=== PATIENT | male | born 1955 | race Caucasian/White ===

== ENCOUNTER 2019-01-29 10:23 | Inpatient (IN) | payer SELFPAY ==
[~2019-01-29] VITALS: Ht 167.6 cm; Wt 72.6 kg
--- NOTE | 2019-01-29 11:00 | NUR ---
DR. RABAGO AT BEDSIDE FOR PT ASSESSMENT AT THIS TIME.
[2019-01-29] MEDS ORDERED: ONDANSETRON HCL INJ 2MG/ML 2ML 2 MG/ML VIAL IV STA (11:05)
[2019-01-29] MEDS ORDERED: MORPHINE SULFATE 2 MG/ML SYR 1ML IV STA (11:05)
[2019-01-29] MEDS ORDERED: SODIUM CHLORIDE 0.9% 1000ML 1,000 ML IV STA (11:05)
[2019-01-29] MEDS ORDERED: PANTOPRAZOLE 40 MG 10ML VIAL IV STA (11:05)
[2019-01-29] MEDS ORDERED: SODIUM CHLORIDE FLUSH 10 ML SYR INJ PRN (11:15)
[2019-01-29] MEDS ORDERED: ONDANSETRON HCL INJ 2MG/ML 2ML 2 MG/ML VIAL IV PRN (11:15)
[2019-01-29] MEDS ORDERED: MORPHINE SULFATE 2 MG/ML SYR 1ML IV PRN (11:15)
[2019-01-29 11:54] LABS: BASOPHILS % 0.5 % (0.0-1.0); EOSINOPHILS % 0.4 % (0.0-6.0); HEMOGLOBIN 12.7 g/dL (14.0-18.0); LYMPHOCYTES # (AUTO) 1.8 (1.0-3.2); LYMPHOCYTES % 20.6 % (18.0-39.1); MEAN CORPUSCULAR HEMOGLOBIN 36.5 pg (28-32); MEAN CORPUSCULAR HGB CONC 35.3 g/dL (31-35); MEAN CORPUSCULAR VOLUME 103.4 fL (81-99); MONOCYTES # (AUTO) 0.9 (0.2-0.8); MONOCYTES % 10.7 % (4.4-11.3); NEUTROPHILS # (AUTO) 5.8 (2.1-6.9); NEUTROPHILS % 67.4 % (38.7-80.0); PLATELET COUNT 137 x10e3/uL (140-360); RED BLOOD COUNT 3.48 x10e6/uL (4.3-5.7); RED CELL DISTRIBUTION WIDTH 14.6 % (11.7-14.4)
[2019-01-29 12:07] LABS: INR 1.35; PARTIAL THROMBOPLASTIN TIME 33.5 seconds (23.8-35.5); PROTHROMBIN TIME 17.3 seconds (11.9-14.5)
[2019-01-29 12:15] LABS: ALANINE AMINOTRANSFERASE 50 IU/L (0-55); ALBUMIN 2.2 g/dL (3.5-5.0); ALBUMIN/GLOBULIN RATIO 0.4 (0.8-2.0); ALKALINE PHOSPHATASE 101 IU/L (40-150); ANION GAP 10.9 mmol/L (8-16); BLOOD UREA NITROGEN 12 mg/dL (7-26); BUN/CREATININE RATIO 16 (6-25); CALCIUM 8.6 mg/dL (8.4-10.2); CARBON DIOXIDE 24 mmol/L (22-29); CHLORIDE 96 mmol/L (98-107); CREATININE, SERUM 0.75 mg/dL (0.72-1.25); EST GLOMERULAR FILTRATION RATE > 60 ML/MIN (60-); GLUCOSE 104 mg/dL (74-118); LIPASE 82 U/L (8-78); MAGNESIUM 2.1 MG/DL (1.3-2.1); POTASSIUM 3.9 mmol/L (3.5-5.1); SODIUM 127 mmol/L (136-145)
--- NOTE | 2019-01-29 12:15 | NUR ---
OBTAINED UA VIA CATH, AESEPTIC TECHNIQUE USED, PT SCROTUM IS EDEMATOUS AND RED; URETHRA EASILY VISIBLE. PT TOLERATED PROCEDURE WELL, NOTED TO HAVE 25 CC FOR SPECIMEN, INFORMED DR. RABAGO.
[2019-01-29] MEDS: CEFTRIAXONE SOD 1 GM/NS 50 ML 50 ML IV SCH (12:22)
[2019-01-29 12:24] LABS: ACETAMINOPHEN < 3 ug/mL (10-30); SALICYLATE < 5.0 mg/dL (0-30)
--- NOTE | 2019-01-29 12:46 | Diagnostic Imaging Report ---
EXAM: CHEST SINGLE (PORTABLE) DATE: 01/29/2019 11:05 AM INDICATION: Edema, bloated stomach COMPARISON: None FINDINGS: The trachea is midline. There is a small left pleural effusion with associated atelectasis of the left lower lobe. A trace right-sided pleural effusion is suspected. There is no evidence for large focal consolidation or pneumothorax. The cardiomediastinal silhouette is within normal limits. No acute osseous abnormalities identified. IMPRESSION: Small left pleural effusion and suspected trace right pleural effusion with associated bibasilar atelectasis. Signed by: Dr. Garrett Carlos MD on 01/29/2019 12:42 PM
[2019-01-29 12:51] LABS: CREATINE KINASE MB 1.7 ng/mL (0-5.0)
[2019-01-29 12:51] LABS: AMPHETAMINES SCREEN,URINE NEGATIVE (NEGATIVE); BENZODIAZEPINES SCREEN,URINE POSITIVE (NEGATIVE); PHENCYCLIDINE SCREEN,URINE NEGATIVE (NEGATIVE)
--- NOTE | 2019-01-29 13:50 | NUR ---
WITNESSED INFORM CONSENT AT THIS TIME, PROCEDURE WAS EXPLAINED BY DR. RABAGO IN DETAIL, PT INFORMED OF RISKS, BENEFITS, AND ALTERNATIVE TREATMENTS. PT TO BE TAKEN TO INTERVENTIONAL RADIOLOGY SOON FOR PARACENTESIS. INFORMED RADIOLOGY THAT CONSENT FORM WAS COMPLETED.
--- NOTE | 2019-01-29 13:56 | Diagnostic Imaging Report ---
CT of the abdomen and pelvis, with contrast. History: Ascites. Comparison: None available. Technique: Multidetector CT scanning of the abdomen and pelvis was performed from the level of the lung bases to the inferior pubic rami after intravenous and oral administration of contrast. Coronal and sagittal multiplanar reformations were obtained. RADIATION DOSE: Total DLP: 943.40 mGy*cm Dose modulation, iterative reconstruction, and/or weight based adjustment of the mA/kV was utilized to reduce the radiation dose to as low as reasonably achievable. FINDINGS: There is a small left-sided pleural effusion present with associated compressive atelectasis of the left lower lobe. There is mild right basilar atelectasis. The imaged portion of the heart demonstrates no significant abnormalities. Incidental note is bilateral gynecomastia. There is a large volume of simple appearing abdominopelvic ascites present. The liver is decreased in size and demonstrates a nodular contour compatible with cirrhosis. No focal hepatic abnormality is identified on this single phase examination. The portal venous system, SMV, and splenic vein are patent. A recanalized umbilical vein is present. The gallbladder is unremarkable. There is no biliary ductal dilatation. There is a small hiatal hernia present. The stomach is otherwise unremarkable. The spleen, pancreas, and bilateral adrenal glands are unremarkable. The kidneys are normal in size and concentrate contrast material properly. There is no evidence for hydronephrosis. The ureters and urinary bladder are not well-visualized secondary to presence of large volume ascites. The prostate is grossly unremarkable. The abdominal aorta is normal course and caliber. The IVC is unremarkable. Please note evaluation the bowel is limited without the use of enteric contrast material. There is centralization of loops of bowel secondary to the presence of a large volume of ascites. The visualized loops of small and large bowel demonstrate no evidence of obstruction or inflammation. There is no intraperitoneal free air. No abnormally enlarged lymph nodes are identified within the abdomen or pelvis. The osseous structures demonstrate no evidence for acute fracture or destructive process. There is diffuse body wall edema present. IMPRESSION: 1. CT findings compatible with cirrhosis and sequela of portal hypertension including large volume of abdominopelvic ascites. 2. Small left pleural effusion. Signed by: Dr. Garrett Carlos MD on 01/29/2019 1:53 PM
[2019-01-29] MEDS ORDERED: SODIUM CHLORIDE 0.9% 50ML 50 ML ONE (14:22)
[2019-01-29] MEDS ORDERED: IOPAMIDOL 370 MG/ML 200 ML INFUS..BTL INJ ONE (14:22)
[2019-01-29 14:44] LABS: CLARITY,URINE CLOUDY (CLEAR); COLOR,URINE RED (YELLOW)
[2019-01-29 14:45] LABS: LEUKOCYTE ESTERASE ,URINE NEGATIVE (NEGATIVE); NITRITE,URINE NEGATIVE (NEGATIVE); URINE UROBILINOGEN 0.2 mg/dL (0.2 - 1)
[2019-01-29 14:46] LABS: PROTEIN,URINE DIPSTICK NEGATIVE (NEGATIVE)
[2019-01-29 14:47] LABS: KETONES,URINE NEGATIVE (NEGATIVE)
[2019-01-29 14:48] LABS: BILIRUBIN,URINE MODERATE (NEGATIVE)
[2019-01-29 15:03] LABS: RBC,URINE 0-5 /HPF (0-5)
[2019-01-29 15:04] LABS: AMORPHOUS SEDIMENT,URINE MODERATE (FEW); BACTERIA,URINE MODERATE /HPF
--- NOTE | 2019-01-29 15:30 | NUR ---
BEDSIDE REPORT GIVEN TO NATANAEL AHUJA; UPDATED ON PLAN OF CARE, PROVIDED TELEMETRY BOX AND NS BAG IN ROOM 110, AWAITING ARRIVAL FROM IR AT THIS TIME; RECEIVING NURSE MADE AWARE.
--- NOTE | 2019-01-29 16:00 | Diagnostic Imaging Report ---
Procedure: Ultrasound-guided paracentesis semiautomatic taper operator: Garrett Carlos MD Pre-operative diagnosis: Ascites Post-operative diagnosis: Ascites Conscious Sedation: None. The patient's heart rate and pulse oximetry were continuously monitored by the IR nurse. Additional Medications: Lidocaine 1% for local anesthesia Estimated blood loss: Less than 1 cc. Specimen: 14,100 cc of cloudy yellow fluid Implants: None TECHNIQUE/FINDINGS: Informed consent was obtained from the patient and documented in the medical record. The patient was placed in the supine position. Initial ultrasound demonstrated ascites. The right lower abdomen was prepped and draped in standard sterile fashion. 1% lidocaine was infiltrated into the skin and subcutaneous tissues for local anesthesia. Then under continuous sonographic guidance, a 5 Fr catheter was advanced into the peritoneal space. The catheter was connected to vacuum bottle with subsequent evacuation of 14,100 cc of serous fluid. The catheter was removed and sterile dressing was applied. Sample was sent to the lab. The patient tolerated the procedure well. IMPRESSION: Successful ultrasound-guided paracentesis. Signed by: Dr. Garrett Carlos MD on 01/29/2019 3:57 PM
--- NOTE | 2019-01-29 16:01 | NUR ---
ARRIVED VIA STRETCHER FROM IR POST PARACENTESIS WITH "14.1L OFF", PT NOT SPEAKING AT THIS TIME, BUT SHAKING HEAD AND USING HANDS TO ANSWER WHEN ASKED QUESTIONS, 2LNC, R ABD DRESSING INTACT, SCANT DRAINAGE NOTED, PT ASSISTED TO USE URINAL, DENIES PAIN AT THIS TIME, ORIENTED TO ROOM AND CALL LIGHT SYSTEM
[2019-01-29 16:15] VITALS: BP 129/67
[2019-01-29] MEDS ORDERED: MULTIVITAMINS- 12 INJECTION 10 ML, FOLIC ACID MDV 5 MG, THIAMINE HCL INJ 100 MG in SODI... IV SCH (16:15)
[2019-01-29] MEDS ORDERED: ALBUMIN 25% 25GM 100ML 0.25 GM/ML BTL IV SCH (16:15)
[2019-01-29] MEDS ORDERED: ALBUMIN 25% 25GM 100ML 100 ML IV SCH (16:30)
[2019-01-29] MEDS: MULTIVITAMINS- 12 INJECTION 10 ML, FOLIC ACID MDV 5 MG, THIAMINE HCL INJ 100 MG in SODI... IV SCH (17:00)
[2019-01-29 17:07] LABS: BODY FLUID APPEARANCE SL.CLOUDY; BODY FLUID COLOR YELLOW; BODY FLUID TYPE PERITONEAL
[2019-01-29 17:21] LABS: RBC,BODY FLUID 50 cells/uL; WBC,BODY FLUID 37 cells/uL
[2019-01-29] MEDS ORDERED: LORAZEPAM 0.5 MG TAB PO PRN (17:30)
--- NOTE | 2019-01-29 17:46 | NUR ---
MD STEVENS INTO SEE PT, DISCUSSED POC
--- NOTE | 2019-01-29 17:49 | NUR ---
PT ANSWERING APPROPRIATELY AT THIS TIME, TOLERATING CLEAR LIQUIDS AT THIS TIME, CALL LIGHT WITHIN REACH
--- NOTE | 2019-01-29 18:20 | NUR ---
SPOKE WITH MD STEVENS, MADE AWARE OF ELEVATED HEART RATE 126-136BPM, ORDERS NOTED AT THIS TIME
[2019-01-29 18:32] VITALS: BP 129/67
[2019-01-29] MEDS: METOPROLOL TARTRATE 25 MG TAB PO SCH (18:49)
[2019-01-29 19:25] LABS: BASOPHILS,BODY FLUID 1 %; LYMPHOCYTES,BODY FLUID 37 %; MONO/MACROPHG,BODY FLUID 5 %; NEUTROPHILS,BODY FLUID 6 %; OTHER CELLS,BODY FLUID 51 %
--- NOTE | 2019-01-29 19:28 | NUR ---
Report received at this time. Pt is sitting up in bed at this time in no apparent distress. Call light is in reach of pt. Will continue to monitor.
--- NOTE | 2019-01-29 19:43 | NUR ---
Dressing to right lower abdomen saturated and leaking. New gauze and tecaderm reapplied. Gown changed. Pt educated to not get up without assistance. Pt informed to use call light for help. Call light is in reach at this time. Report given to Nightshift nurse, Jena SANTOYO at this time.
--- NOTE | 2019-01-29 19:52 | NUR ---
RECEIVED PT LAYING SEMI FOWLERS IN BED, AAOX3, RR EVEN AND NON-LABORED, ON ROOM AIR. NO S/SX OF DISTRESS NOTED. DRESSING TO ANTERIOR ABD NOTED TO BE CDI. LEFT PT LAYING SEMI FOWLERS IN BED, BED IN LOW LOCKED POSITION, SIDE RAILS UPX2, CALL LIGHT AND PHONE WITHIN REACH.
[2019-01-29 20:00] VITALS: BP 123/70
[2019-01-29 20:47] VITALS: BP 123/70
--- NOTE | 2019-01-29 23:16 | History and Physical ---
CHIEF COMPLAINT: Abdominal distention. HISTORY OF PRESENT ILLNESS: This is a 63-year-old male with no past medical history, does not see a primary care physician for significant number of years, reports taking Xanax from his , not sure how he gets those medications, comes into the emergency room with complaints of abdominal distention ongoing for the last several weeks. The patient also reports scrotal swelling as well as lower extremity edema as well. He reports that these symptoms have progressively gotten worse over the last several weeks. This patient is a chronic alcoholic, drinks about 10 beers a day and he reports his last drink was Sunday, this last weekend on January 26. He denies any chest pain, palpitation, nausea, or vomiting. The patient underwent paracentesis, had significant amount of drainage already from Interventional Radiology. Albumin has been written as well as IV antibiotics. The patient was seen and evaluated at bedside on the medical floor. Currently, he is doing well with no other complaints. I talked to him and got his history with his present. Nursing staff present during the evaluation. REVIEW OF SYSTEMS: Pertinent positives: Abdominal distention, lower extremity edema, scrotal swelling. Pertinent negatives: Denies any chest pain, palpitation, nausea, vomiting, diarrhea, dysuria, hematuria, frequency, urgency, lightheadedness, dizziness, abdominal pain, headache, shortness of breath, cough, congestion, fever, or any other complaints. The rest of 14-point review of systems have been reviewed with the patient and are negative. ALLERGIES: NO KNOWN DRUG ALLERGIES. HOME MEDICATIONS: None. PAST MEDICAL HISTORY: He reports none despite he takes Xanax for probably anxiety and he receives that from his . He is a chronic alcoholic. PAST SURGICAL HISTORY: Reports none. FAMILY HISTORY: Hypertension and diabetes. SOCIAL HISTORY: No drugs. He is a chronic alcoholic, drinks about 8 to 10 beers per day. Denies any drugs. He is . PHYSICAL EXAMINATION: VITAL SIGNS: Temperature is 96.9, pulse is 122, his respiratory rate is 18, his blood pressure 129/67, his pulse ox is 96% on room air. GENERAL: Not in acute distress. Alert and oriented x3. He is cooperative on exam. He looks very cachectic on examination. HEENT: Head; normocephalic and atraumatic. Eyes; pupils are equal, round and reactive to light bilaterally. Extraocular movements are intact bilaterally. Throat; no evidence of erythema or exudates in the posterior pharynx. Has poor dentition. NECK: Supple. Good range of motion. PULMONARY: Clear to auscultation bilaterally. No wheezing, no rales, no rhonchi. No crackles appreciated. CARDIOVASCULAR: Positive S1 and S2. No murmurs, rubs, or gallops appreciated. ABDOMEN: Soft, nondistended, and nontender to palpation. Bowel sounds present. MUSCULOSKELETAL: Strength is 5/5 throughout. No evidence of any muscle deficits on examination. No weakness appreciated. NEUROLOGICAL: Cranial nerves 2 through 12 are grossly intact. No evidence of any neurological deficits on exam. SKIN: Intact. Warm to touch. Good cap refill. PSYCHIATRIC: Normal affect and mood. EXTREMITIES: No edema. Good range of motion throughout. LABORATORY FINDINGS: Show white count 8.5, hemoglobin 12.7, hematocrit 36, platelets of 137. Coagulation; PT 17, INR 1.35, PTT 33. Chemistry sodium is 127, his potassium is 3.9, chloride 96, bicarbonate 24, anion gap of 10. BUN is 12, creatinine is 0.75, glucose is 104, calcium is 8.6, magnesium 2.1, total bilirubin is 3.5. AST is 87, ALT 50, alkaline phosphatase 101. Ammonia level was 48. His troponins are negative. BNP 94, albumin is 2.2. Lipase is 82. Body fluid collection has been pending. Urine drug screen shows negative for alcohol. Negative acetaminophen. Negative salicylate. Positive for benzodiazepine. Urinalysis shows just 2+ blood, cloudy urine, kind of redness in color. MICROBIOLOGY: Body fluid, ascites; Gram stain is pending. Urine culture pending. IMAGING STUDIES: Ultrasound-guided paracentesis removed 14 L described as serous fluid removed. Chest x-ray shows small left pleural effusions and suspected trace right pleural effusion associated with bibasilar atelectasis. CT abdomen and pelvis shows CT compatible with cirrhosis with sequela of portal hypertension including large volume abdominal pelvic ascites. Small left pleural effusion. IMPRESSION: 1. Alcoholic liver cirrhosis with ascites. 2. Chronic alcohol abuse. 3. Moderate protein-calorie malnutrition. 4. Ascites with portal hypertension. 5. Positive urine drug screen with benzodiazepine. 6. Hyponatremia. 7. Hypoalbuminemia. PLAN: At this time, paracentesis was performed before I was able to evaluate the patient. The patient was sent from the ER to IR and approximately 14 L was removed. I am concerned for possible hepatorenal syndrome in which I will go ahead and order albumin 25 g IV q.6 hours x6 doses and monitor him very closely. His renal function is okay right now, but we will need to monitor closely. I will hold off on all diuretics at the current moment due to removing 14 L of ascites fluid just here earlier to avoid any hypotension and worsening renal state. I will go ahead and trend troponins for now. I consulted GI to come speak with the family about his underlying liver cirrhosis. He just quit drinking or he had his last drink back on January 26, which does not qualify for any type of liver transplantation or evaluation. We will continue with same plan of care. He does not have any home medications to reconcile. I will go ahead and put him on SCDs for DVT prophylaxis. He is on a banana bag and thiamine as well. Pain control as needed. He is also on IV antibiotics. Monitor ascites, fluid cultures. Continue same plan of care and monitor very closely. MD DONNELL Adams/MODL /[id number]
[2019-01-30] VITALS (8 sets, daily range): BP systolic 94–113; BP diastolic 57–70
[2019-01-30] MEDS: ALBUMIN 25% 25GM 100ML 100 ML IV SCH ×5 (00:45→23:59)
[2019-01-30] MEDS: MULTIVITAMINS- 12 INJECTION 10 ML, FOLIC ACID MDV 5 MG, THIAMINE HCL INJ 100 MG in SODI... IV SCH ×2 (02:53→13:35)
[2019-01-30 06:47] LABS: BASOPHILS % 0.3 % (0.0-1.0); EOSINOPHILS % 0.1 % (0.0-6.0); HEMATOCRIT 35.3 % (38.2-49.6); HEMOGLOBIN 12.6 g/dL (14.0-18.0); LYMPHOCYTES # (AUTO) 1.9 (1.0-3.2); LYMPHOCYTES % 15.8 % (18.0-39.1); MEAN CORPUSCULAR HEMOGLOBIN 37.2 pg (28-32); MEAN CORPUSCULAR HGB CONC 35.7 g/dL (31-35); MEAN CORPUSCULAR VOLUME 104.1 fL (81-99); MONOCYTES % 8.3 % (4.4-11.3); NEUTROPHILS # (AUTO) 8.8 (2.1-6.9); NEUTROPHILS % 75.2 % (38.7-80.0); PLATELET COUNT 127 x10e3/uL (140-360); RED BLOOD COUNT 3.39 x10e6/uL (4.3-5.7); RED CELL DISTRIBUTION WIDTH 14.5 % (11.7-14.4)
[2019-01-30 07:05] LABS: ALANINE AMINOTRANSFERASE 28 IU/L (0-55); ALBUMIN/GLOBULIN RATIO 0.5 (0.8-2.0); ALKALINE PHOSPHATASE 58 IU/L (40-150); BLOOD UREA NITROGEN 11 mg/dL (7-26); BUN/CREATININE RATIO 17 (6-25); CALCIUM 7.8 mg/dL (8.4-10.2); CARBON DIOXIDE 21 mmol/L (22-29); CHLORIDE 105 mmol/L (98-107); CREATININE, SERUM 0.66 mg/dL (0.72-1.25); EST GLOMERULAR FILTRATION RATE > 60 ML/MIN (60-); GLUCOSE 107 mg/dL (74-118); LIPASE 34 U/L (8-78); SODIUM 132 mmol/L (136-145)
[2019-01-30] MEDS: METOPROLOL TARTRATE 25 MG TAB PO SCH ×2 (09:00→20:40)
[2019-01-30] MEDS ORDERED: ONDANSETRON HCL 4 MG ORAL DISINTEGRATING TAB PO PRN (09:30)
[2019-01-30] MEDS: PANTOPRAZOLE 40 MG 10ML VIAL IV SCH (10:00)
[2019-01-30] MEDS: THIAMINE HCL INJ 100 MG/ML 2ML VIAL IV SCH (10:00)
[2019-01-30] MEDS ORDERED: SODIUM CHLORIDE 0.9% 250ML 250 ML ONE (10:49)
[2019-01-30] MEDS: CEFTRIAXONE SOD 1 GM/NS 50 ML 50 ML IV SCH (11:14)
[2019-01-30] MEDS ORDERED: MIDODRINE 2.5 MG TAB PO SCH (16:00)
[2019-01-30] MEDS ORDERED: VANCOMYCIN 1GM/NS 250 ML 250 ML IV SCH (16:00)
[2019-01-30] MEDS: CEFEPIME 1GM/NS 0.9% 50 ML 50 ML IV SCH (16:35)
[2019-01-30] MEDS: MIDODRINE HCL 5 MG TABLET PO SCH (16:36)
--- NOTE | 2019-01-30 17:00 | NUR ---
Nutrition Intervention Note RD Recommendation(s) for Physician: The patient meets criteria for MODERATE protein-calorie malnutrition. -Rec advancing to low sodium diet as medically appropriate -Rec Ensure Clear to increase protein-calorie intake (lactose intolerance) -Continue banana bag with thiamine and folic acid due to alcoholism Plan of Care: RD following, monitoring for tolerance and adequacy, ONS rec Nutrition reason for involvement: Nutrition Risk Trigger MST RD Assessment 01/30 63yo M, who was admitted for abdominal distention ongoing for several weeks. Pt underwent paracentesis yesterday with 14L fluids removed. Visited pt in the room. Pt was complaining of gas and bloating all the time. Pt reported having appetite but cant eat much due to abdominal distention. Unable to determine # of weight loss due to ascites. Reported UBW ~160lbs. Pt denied any PMHx. However, pt was a chronic alcoholic with last alcohol intake on 01/26/2019. Pt denied any chewing or swallowing difficulty. LBM 01/29. Educated pt on low sodium diet and importance of alcohol cessation; was on bedside. Pt has moderate muscle and fat loss upon NFPA. Will continue to monitor and follow. Principal Problems/Diagnoses: 1. Alcoholic liver cirrhosis with ascites. 2. Chronic alcohol abuse. 3. Moderate protein-calorie malnutrition. 4. Ascites with portal hypertension. 5. Positive urine drug screen with benzodiazepine. PMH: chronic alcoholic GI: abdomen ascitic, soft, large, tender, flatus present Skin: intact Labs: (01/30) Na 132 L, creatinine 0.66 L, Ca 7.8 L Meds: cefepime, MVi w/ folic acid and thiamine, albumin, protonix Ht: 66in Wt: 160lb BMI: 25.8kg/m2 IBW: 142lb +/- 10% Malnutrition Evaluation (01/30/2019) The patient meets criteria for MODERATE protein-calorie malnutrition. Energy intake: <75% of estimated energy requirements for >3 months Weight loss: Unable to determine due to ascites Fat loss: Moderate clavicle protrusion Muscle loss: Moderate slight temporal depression Supporting Evidence: Fluid accumulation: Ascites Functional Status: no changes Nutrition Prescription (Diet Order): Estimated Nutritional Needs: Calories: 1440 1800kcal(20-25kcal/kg/d) Weight used: CBW Protein: 72 108g (1-1.5g/kg/d) Weight used: CBW Diet Adequacy: Not meeting calorie needs, Not meeting protein needs Diet Education Needs Assessment: Diet education indicated and patient agreeable. Learner(s): pt and Time spent: 15minutes Barriers: No barriers identified. Cultural/Language Modifications: No cultural/language modifications noted. Pt and speak Czech. Readiness: Acceptance Method: Handout, explanation Topics: Cirrhosis nutrition therapy Understanding/Compliance: Expect fair understanding/compliance from pt. Will benefit from reinforcement. All questions have been answered. Nutrition Care Level: mod Nutrition Diagnosis: Moderate malnutrition related to cirrhosis with ascites as evidenced by decrease PO intake and moderate muscle/ fat loss. Goal: Patient will meet 75-100% of estimated needs by follow up Progress: N/A Interventions: Modified diet, Commercial beverage, Multivitamin/mineral supplement therapy Monitoring/Evaluation: Total energy intake, Total protein intake, Modified diet, Liquid supplement, Weight change Signed: Yesenia Butt MS, RD, LD
--- NOTE | 2019-01-30 18:28 | Progress Note ---
DATE: 01/30/2019 Medicine Progress Note. SUBJECTIVE: The patient reports doing much better today with no other issues. His blood pressure is relatively low, likely due to all the volume removed from yesterday's paracentesis. He is alert, awake, talking, eating with no complaints. Discussed plan of care with patient and at bedside. PHYSICAL EXAMINATION: VITAL SIGNS: Temperature 96.8, pulse 88, respiratory rate 19, blood pressure 104/65, pulse ox 99% on room air. GENERAL: Not in acute distress. Alert and oriented x3. He is cooperative on exam. HEENT: Head; normocephalic and atraumatic. Eyes; pupils are equal, round and reactive to light bilaterally. Extraocular movements are intact bilaterally. Throat; no evidence of erythema or exudates in the posterior pharynx. Has poor dentition. NECK: Supple. Good range of motion. PULMONARY: Clear to auscultation bilaterally. No wheezing, no rales, no rhonchi. No crackles appreciated. CARDIOVASCULAR: Positive S1 and S2. No murmurs appreciated. ABDOMEN: Soft, nondistended, and nontender to palpation. Bowel sounds present. MUSCULOSKELETAL: Strength is 5/5 throughout. No evidence of any muscle deficits on examination. NEUROLOGICAL: No evidence of any neurological deficits on exam. SKIN: Intact. Warm to touch. Good cap refill. PSYCHIATRIC: Normal affect and mood. EXTREMITIES: He has 3+ pedal edema all the way up to the thighs. LABORATORY DATA: Show white count is 11.7, hemoglobin 12.6, hematocrit is 35.3, platelets of 127. Coagulation noted. Chemistry, sodium 132, potassium 4, chloride 105, bicarb 21, anion gap is 10, BUN is 11, creatinine is 0.66, glucose is 107, calcium is 7.8. LFTs shows total bilirubin was 3.6, AST 45, ALT 28, alkaline phosphatase 58. Troponins were negative. Albumin was 2. Lipase was 34. Ascites fluid cultures, no growth to date. No organisms seen. Urine culture was found to be negative today. IMAGING STUDIES: None. IMPRESSION: 1. Alcoholic liver cirrhosis with underlying ascites. 2. Chronic alcohol abuse. 3. Moderate protein calorie malnutrition. 4. Ascites with portal hypertension. 5. Positive benzodiazepines in UDS. 6. Hyponatremia. 7. Hypoalbuminemia. 8. Severe anasarca with scrotal swelling. 9. Hypotension. PLAN: At this time, he had received the paracentesis yesterday, 14L removed. Ascites fluid shows no evidence of any growth at this time, from a wound culture standpoint. Awaiting for GI to come and evaluate the patient. His renal function is stable. His electrolytes are stable as well. He is slightly more hypotensive today, which I will go ahead and start him on oral midodrine. Awaiting for final GI recommendations for further management and care. Most of this workup can be performed as an outpatient as well, which I discussed with the family at bedside. We will continue with the banana bag and continue with thiamine. He is on SCDs for DVT prophylaxis. We will continue to monitor very closely. MD DONNELL Adams/MODL /[id number]
--- NOTE | 2019-01-30 19:12 | NUR ---
WALKING ROUNDS PERFORMED, RECEIVED PT LAYING SEMI FOWLERS IN BED, AAOX3, RR EVEN AND NON-LABORED, ON ROOM AIR. NO S/SX OF DISTRESS NOTED. LEFT PT LAYING SEMI FOWLERS IN BED, BED IN LOW LOCKED POSITION, SIDE RAILS UPX2, CALL LIGHT AND PHONE WITHIN REACH.
--- NOTE | 2019-01-30 20:25 | NUR ---
IV TO (L) AC LEAKING, IV DISCONTINUED, CATHETER TIP INTACT, PRESSURE AND DRESSING APPLIED. NEW IV STARTED TO (L) UPPER ARM 20G. FLUSHES WITHOUT DIFFICULTY AND BLOOD RETURN NOTED.
[2019-01-30] MEDS: VANCOMYCIN 1GM/NS 250 ML 250 ML IV SCH (20:40)
[2019-01-31] VITALS: BP 109/66
[2019-01-31] MEDS: MULTIVITAMINS- 12 INJECTION 10 ML, FOLIC ACID MDV 5 MG, THIAMINE HCL INJ 100 MG in SODI... IV SCH (02:00)
[2019-01-31 04:00] VITALS: BP 109/65
--- NOTE | 2019-01-31 04:14 | NUR ---
LEFT UPPER ARM 20G INFILTRATED. IV DC'D, CATHETER TIP INTACT. UPON IV REMOVAL SKIN TEAR NOTED TO LEFT UPPER ARM 2 1/2 X 1 CM. DRSG APPLIED TO SITE. X1 ATTEMPT TO LEFT HAND SUCCESSFUL. PT TOLERATED WELL. PRIMARY NURSE NOTIFIED.
[2019-01-31] MEDS: CEFEPIME 1GM/NS 0.9% 50 ML 50 ML IV SCH (05:10)
[2019-01-31] MEDS: ALBUMIN 25% 25GM 100ML 100 ML IV SCH (06:21)
[2019-01-31 06:27] LABS: BASOPHILS % 0.1 % (0.0-1.0); EOSINOPHILS % 0.4 % (0.0-6.0); HEMATOCRIT 31.9 % (38.2-49.6); HEMOGLOBIN 11.1 g/dL (14.0-18.0); LYMPHOCYTES # (AUTO) 1.8 (1.0-3.2); LYMPHOCYTES % 23.9 % (18.0-39.1); MEAN CORPUSCULAR HEMOGLOBIN 36.8 pg (28-32); MEAN CORPUSCULAR HGB CONC 34.8 g/dL (31-35); MEAN CORPUSCULAR VOLUME 105.6 fL (81-99); MONOCYTES # (AUTO) 0.8 (0.2-0.8); MONOCYTES % 10.3 % (4.4-11.3); NEUTROPHILS # (AUTO) 4.9 (2.1-6.9); NEUTROPHILS % 64.9 % (38.7-80.0); PLATELET COUNT 99 x10e3/uL (140-360); RED BLOOD COUNT 3.02 x10e6/uL (4.3-5.7); RED CELL DISTRIBUTION WIDTH 14.6 % (11.7-14.4)
[2019-01-31 06:48] LABS: ANION GAP 8.6 mmol/L (8-16); BLOOD UREA NITROGEN 8 mg/dL (7-26); BUN/CREATININE RATIO 13 (6-25); CALCIUM 8.1 mg/dL (8.4-10.2); CARBON DIOXIDE 21 mmol/L (22-29); CHLORIDE 108 mmol/L (98-107); CREATININE, SERUM 0.61 mg/dL (0.72-1.25); EST GLOMERULAR FILTRATION RATE > 60 ML/MIN (60-); GLUCOSE 95 mg/dL (74-118); POTASSIUM 3.6 mmol/L (3.5-5.1); SODIUM 134 mmol/L (136-145)
--- NOTE | 2019-01-31 07:20 | NUR ---
Received patient sitting on the side of the bed. Respiration even and unlabored. Call light in reach.
[2019-01-31 08:26] VITALS: BP 127/79
[2019-01-31 08:40] VITALS: BP 127/79
[2019-01-31] MEDS: MIDODRINE HCL 5 MG TABLET PO SCH ×2 (08:58→12:31)
[2019-01-31] MEDS: THIAMINE HCL INJ 100 MG/ML 2ML VIAL IV SCH (08:58)
[2019-01-31] MEDS: PANTOPRAZOLE 40 MG 10ML VIAL IV SCH (08:58)
[2019-01-31] MEDS: VANCOMYCIN 1GM/NS 250 ML 250 ML IV SCH (08:58)
[2019-01-31] MEDS: METOPROLOL TARTRATE 25 MG TAB PO SCH (08:58)
[2019-01-31 12:14] VITALS: BP 131/83
[2019-01-31] MEDS ORDERED: FUROSEMIDE INJ 10 MG/ML 4 ML VIAL IV ONE (14:45)
--- NOTE | 2019-01-31 14:56 | NUR ---
GAVE PACKET OF INFORMATION WITH [facility] [employer] FOR ASSISTANCE WITH LOW TO NO INCOME TO PATIENT. RESOURCES THAT PATIENT MAY BE ABLE TO FOLLOW UP UPON DISCHARGE. PT EDUCATED ON EACH RESOURCE AND UNDERSTANDING HOW TO FOLLOW UP TO SEE IF QUALIFIED FOR EACH RESOURCE.
[2019-01-31] MEDS ORDERED: LASIX40 MG PO (15:06)
[2019-01-31] MEDS ORDERED: KEFLEX500 MG PO (15:07)
--- NOTE | 2019-01-31 15:20 | NUR ---
Patient is to be discharge home. PIV to left hand discontinued, catheter tip intact. no bleeding noted.
--- NOTE | 2019-01-31 15:28 | NUR ---
Patient is transported via wheelchair to private vehicle. respiration even and unlabored without SOB.
--- NOTE | 2019-02-01 14:42 | Discharge Summary ---
FINAL DISCHARGE DIAGNOSES: 1. Alcoholic liver cirrhosis with underlying ascites, status post paracentesis. 2. Chronic alcohol abuse. 3. Moderate protein-calorie malnutrition. 4. Ascites with portal hypertension. 5. Positive benzodiazepines on urine drug screen. 6. Mild hyponatremia, resolved. 7. Hypoalbuminemia. 8. Severe anasarca with scrotal swelling, improved. 9. Hypotension, improved. CONSULTANTS: GI. PHYSICAL EXAMINATION: VITAL SIGNS: Temperature is 97.5, pulse 90, respiratory rate is 18, blood pressure 131/83, and pulse ox 98% on room air. LAB FINDINGS: Show white count 7.6, hemoglobin 11, hematocrit 32, and platelets of 99. His coags, PT 17, INR 1.3, PTT 33. Chemistry; sodium 134, potassium 3.6, chloride 108, bicarb 21, anion gap of 8.6, BUN is 8, and creatinine is 0.61, glucose is 95, calcium is 8.1. Albumin is 2. Lipase is 34. Urinalysis was negative. Fluid shows neutrophils of 6. Serologies, hepatitis panel shows hepatitis C antibody was positive and elevated, likely has underlying hepatitis C. MICROBIOLOGY: Gram stain ascites fluid shows no growth. Urine culture was also found to be no growth. IMAGING STUDIES: Paracentesis performed shows removed 14 L of yellowish material on 01/29/2019. Chest x-ray shows small left trace pleural effusion with associated bibasilar atelectasis. CT abdomen and pelvis shows a compatible with cirrhosis and sequela of portal hypertension including large volume of abdominal pelvic ascites. Small left pleural effusion. HOSPITAL COURSE: This is a 63-year-old male, who came into the emergency room department with complaints of increased abdominal girth, found to have significant ascites on CT imaging findings. The patient is a chronic alcoholic until this day, continues to drink on a daily basis. The patient does not follow up with the primary care physician nor does he follow up with a GI specialist. He has not seen a PCP in years. He denies any chest pain or any palpitations. While here, GI was consulted. The patient underwent paracentesis ultrasound-guided with 14.1 L removed on 01/29/2019. Hepatitis panel shows positive hepatitis C antibody, likely to have underlying hepatitis C. It seems like his alcoholic cirrhosis is likely due to hep C as well as alcoholic abuse. GI consulted and was advised to follow up the patient as an outpatient in his office as well with referral to [facility] for liver transplant evaluation. Otherwise, no further workup needed by GI at this time. While here, the patient did receive diuretics with much improvement. He will be discharged on oral diuretics as well, as well as oral antibiotics. All cultures were found to be negative upon discharge. On discharge, the patient was back to baseline within with no other complaints. He was able to be discharged to home. On the day of discharge, vital signs were stable, labs reviewed and stable. The patient seen and evaluated, examined thoroughly on the day of discharge. No other complaints. The patient verbalized understanding and agrees to plan of care to follow up as an outpatient with the PCP in 1 week and GI specialist in 1-2 weeks' time. The patient was advised about alcohol cessation as well as smoking concessions. He verbalized understanding, agrees to plan of care. MEDICATIONS: See med reconciliation form. DISPOSITION: Home. CONDITION: Stable. DIET: Heart healthy. In the event of any worsening symptoms, the patient advised to come back to the emergency room department for further evaluation. Discharge summary took greater than 35 minutes. MD DONNELL Adams/LIANE /[id number]
== END 2019-01-31 15:26 | disposition home or self-care (01) | DRG 432 ==
LOC: ER 10:23 → ERHOLD 11:11 → MED/SURG 15:30
PROVIDERS: ADMIT Internal Medicine; ATTEND Internal Medicine
PROC: 0W9G3ZX Drainage of Peritoneal Cavity, Percutaneous Approach, Diagnostic (ICD-10-PCS; principal; 2019-01-29)
DX: K70.31 Alcoholic cirrhosis of liver with ascites (principal); K76.7 Hepatorenal syndrome; E87.1 Hypo-osmolality and hyponatremia; E44.0 Moderate protein-calorie malnutrition; K76.6 Portal hypertension; F41.9 Anxiety disorder, unspecified; Z82.49 Family history of ischemic heart disease and other diseases of the circulatory system; D69.6 Thrombocytopenia, unspecified; Z83.3 Family history of diabetes mellitus; F10.20 Alcohol dependence, uncomplicated; F13.10 Sedative, hypnotic or anxiolytic abuse, uncomplicated; E88.09 Other disorders of plasma-protein metabolism, not elsewhere classified; I95.9 Hypotension, unspecified; K21.9 Gastro-esophageal reflux disease without esophagitis; B19.20 Unspecified viral hepatitis C without hepatic coma; Z68.25 Body mass index [BMI] 25.0-25.9, adult
CPT/HCPCS: 36415; 49083; 71045; 74177; 74470; 80048; 80053; 80307; 80320; 80329; 81001; 82140; 82550; 82553; 83690; 83735; 83880; 84484; 85025; 85610; 85730; 86850; 86900; 87070; 87086; 87205; 88112; 89051; 93005; 99285; C1729; J0692; J0696; J1940; J2270; J2405; J3370; J3411; J7030; J7050; P9047; Q9967

== ENCOUNTER → 2019-02-13 | Outpatient (CLI) | payer SELFPAY ==
[~2019-02-13] MED LIST: KEFLEX500 MG PO; LASIX40 MG PO
--- NOTE | 2019-02-13 13:54 | Diagnostic Imaging Report ---
Procedure: Ultrasound-guided paracentesis mailing machine operator: Ric Henry M.D. Pre-operative diagnosis: Ascites Post-operative diagnosis: Ascites Conscious Sedation: None. The patient's heart rate and pulse oximetry were continuously monitored by the IR nurse. Additional Medications: Lidocaine 1% for local anesthesia Estimated blood loss: Less than 1 cc. Specimen: 13,500 cc of yellow fluid Implants: None TECHNIQUE/FINDINGS: Informed consent was obtained from the patient and documented in the medical record. The patient was placed in the supine position. Initial ultrasound demonstrated ascites. The right upper abdomen was prepped and draped in standard sterile fashion. 1% lidocaine was infiltrated into the skin and subcutaneous tissues for local anesthesia. Then under continuous sonographic guidance, a 5 Fr catheter was advanced into the peritoneal space. The catheter was connected to vacuum bottle with subsequent evacuation of 13,500 cc of serous fluid. The catheter was removed and sterile dressing was applied. Sample was sent to the lab. The patient tolerated the procedure well. IMPRESSION: Successful ultrasound-guided paracentesis. Signed by: Ric Henry on 02/13/2019 1:51 PM
[2019-02-13 18:36] LABS: BODY FLUID APPEARANCE SL.CLOUDY; BODY FLUID COLOR YELLOW; BODY FLUID TYPE PERITONEAL; RBC,BODY FLUID 32 cells/uL; WBC,BODY FLUID 45 cells/uL
[2019-02-13 18:43] LABS: LYMPHOCYTES,BODY FLUID 54 %; MONO/MACROPHG,BODY FLUID 18 %; NEUTROPHILS,BODY FLUID 11 %; OTHER CELLS,BODY FLUID 17 %
== END ==
LOC: US 10:55
PROVIDERS: ATTEND Internal Medicine Gastroenterology
DX: R18.8 Other ascites (principal)
CPT/HCPCS: 36415; 49083; 82040; 82150; 82945; 83615; 83690; 83986; 84157; 84478; 87070; 87116; 87205; 87206; 88112; 89051; C1729

== ENCOUNTER → 2019-03-31 | Outpatient (CLI) | payer MEDICARE ==
[~2019-03-31] MED LIST changes: +ALBUMIN 25% 12.5GM 50ML 200 ML IV ONE
--- NOTE | 2019-03-31 10:37 | Diagnostic Imaging Report ---
PROCEDURE: Ultrasound-guided diagnostic and therapeutic paracentesis Procedural Personnel Attending physician(s): Al Reyes MD Pre-procedure diagnosis: Ascites Post-procedure diagnosis: Same Indication: Ascites with pain or pressure symptoms Additional clinical history: None Complications: No immediate complications. IMPRESSION: Ultrasound-guided paracentesis with drainage of 6000 mL of serous fluid. Plan: Resume care by clinical team. PROCEDURE SUMMARY: - Limited abdominal ultrasound - Ultrasound-guided paracentesis - Additional procedure(s): None PROCEDURE DETAILS: Pre-procedure Consent: Informed consent for the procedure including risks, benefits and alternatives was obtained and time-out was performed prior to the procedure. Preparation: The site was prepared and draped using maximal sterile barrier technique including cutaneous antisepsis. Anesthesia/sedation Level of anesthesia/sedation: No sedation Anesthesia/sedation administered by: Not applicable Initial abdominal ultrasound Initial abdominal ultrasound was performed. Findings: Large ascites. A safe window for paracentesis was identified. Paracentesis Local anesthesia was administered. The peritoneal cavity was accessed and fluid return confirmed position. Ascites was drained. The catheter was then removed, and a sterile bandage was applied. Paracentesis access technique: Real-time ultrasound guidance Catheter placed: 5F Yueh Post-drainage ultrasound: Large ascites Additional Details Additional description of procedure: None Equipment details: None Specimens removed: Abdominal fluid Estimated blood loss (mL): Less than 10 Standardized report: [email or web address] Attestation Signer name: Al Reyes MD I attest that I was present for the entire procedure. I reviewed the stored images and agree with the report as written. Signed by: Al Reyes MD on 03/31/2019 10:33 AM
[2019-03-31 12:57] LABS: BODY FLUID APPEARANCE SL.CLOUDY; BODY FLUID COLOR YELLOW
[2019-03-31 13:01] LABS: BODY FLUID TYPE PARACENTESIS
[2019-03-31 13:11] LABS: LYMPHOCYTES,BODY FLUID 34 %; MONO/MACROPHG,BODY FLUID 41 %; NEUTROPHILS,BODY FLUID 9 %
[2019-03-31 13:49] LABS: OTHER CELLS,BODY FLUID 16 %
[2019-03-31 13:50] LABS: RBC,BODY FLUID 21 cells/uL; WBC,BODY FLUID 29 cells/uL
== END ==
LOC: US 08:41
PROVIDERS: ATTEND Internal Medicine Gastroenterology
DX: R18.8 Other ascites (principal); K74.60 Unspecified cirrhosis of liver
CPT/HCPCS: 36415; 49083; 82040; 82150; 82945; 83615; 83690; 83986; 84157; 84478; 87070; 87102; 87205; 87206; 89051

== ENCOUNTER → 2019-04-03 | Outpatient (CLI) | payer MEDICARE ==
[~2019-04-03] MED LIST changes: -ALBUMIN 25% 12.5GM 50ML 200 ML IV ONE; +ALBUMIN 25% 12.5GM 50ML 300 ML IV ONE; +SODIUM CHLORIDE 0.9% 250ML 250 ML ONE
--- NOTE | 2019-04-03 14:53 | Diagnostic Imaging Report ---
Procedure: Ultrasound-guided paracentesis sandblast operator: Ric Henry M.D. Pre-operative diagnosis: Ascites Post-operative diagnosis: Ascites Conscious Sedation: None. The patient's heart rate and pulse oximetry were continuously monitored by the IR nurse. Additional Medications: Lidocaine 1% for local anesthesia Estimated blood loss: Less than 1 cc. Specimen: 16,400 cc of cloudy yellow fluid Implants: None TECHNIQUE/FINDINGS: Informed consent was obtained from the patient and documented in the medical record. The patient was placed in the supine position. Initial ultrasound demonstrated ascites. The right lower abdomen was prepped and draped in standard sterile fashion. 1% lidocaine was infiltrated into the skin and subcutaneous tissues for local anesthesia. Then under continuous sonographic guidance, a 5 Fr catheter was advanced into the peritoneal space. The catheter was connected to vacuum bottle with subsequent evacuation of 16,400 cc of serous fluid. The catheter was removed and sterile dressing was applied. Sample was sent to the lab. The patient tolerated the procedure well. IMPRESSION: Successful ultrasound-guided paracentesis. Signed by: Ric Henry on 04/03/2019 2:50 PM
[2019-04-03 16:06] LABS: BODY FLUID APPEARANCE SL.CLOUDY; BODY FLUID COLOR STRAW
[2019-04-03 16:07] LABS: RBC,BODY FLUID 18 cells/uL; WBC,BODY FLUID 23 cells/uL
[2019-04-03 16:23] LABS: LYMPHOCYTES,BODY FLUID 38 %; MONO/MACROPHG,BODY FLUID 3 %; NEUTROPHILS,BODY FLUID 5 %; OTHER CELLS,BODY FLUID 54 %
--- NOTE | 2019-04-03 17:32 | Diagnostic Imaging Report ---
Abdomen, 2 views. History: Persistent abdominal pain after paracentesis. Findings: The stomach is distended with air. Air is scattered throughout nondilated small and large bowel. There are no air-fluid levels. There is no evidence of free air. There are no masses or abnormal calcifications. The osseous structures are intact. IMPRESSION: Nonspecific bowel gas pattern. No evidence of bowel perforation. Signed by: Ric Henry on 04/03/2019 5:29 PM
== END ==
LOC: US 11:39
PROVIDERS: ATTEND Internal Medicine Gastroenterology
DX: R18.8 Other ascites (principal)
CPT/HCPCS: 36415; 49083; 74019; 82150; 82945; 83615; 83690; 83986; 84157; 84478; 87070; 87116; 87205; 87206; 88112; 89051; C1729; J7050

== ENCOUNTER → 2019-04-09 | Outpatient (CLI) | payer MEDICARE ==
[~2019-04-09] MED LIST changes: +ALBUMIN 25% 12.5GM 50ML 200 ML IV ONE; -ALBUMIN 25% 12.5GM 50ML 300 ML IV ONE; -SODIUM CHLORIDE 0.9% 250ML 250 ML ONE
[2019-04-09 12:11] LABS: BASOPHILS % 0.1 % (0.0-1.0); EOSINOPHILS % 0.2 % (0.0-6.0); HEMATOCRIT 31.2 % (38.2-49.6); HEMOGLOBIN 11.2 g/dL (14.0-18.0); LYMPHOCYTES # (AUTO) 1.5 (1.0-3.2); LYMPHOCYTES % 14.1 % (18.0-39.1); MEAN CORPUSCULAR HEMOGLOBIN 37.2 pg (28-32); MEAN CORPUSCULAR HGB CONC 35.9 g/dL (31-35); MEAN CORPUSCULAR VOLUME 103.7 fL (81-99); MONOCYTES # (AUTO) 1.1 (0.2-0.8); MONOCYTES % 9.9 % (4.4-11.3); NEUTROPHILS % 74.5 % (38.7-80.0); PLATELET COUNT 128 x10e3/uL (140-360); RED BLOOD COUNT 3.01 x10e6/uL (4.3-5.7)
[2019-04-09 12:27] LABS: INR 1.18; PROTHROMBIN TIME 15.6 seconds (11.9-14.5)
[2019-04-09 12:28] LABS: PARTIAL THROMBOPLASTIN TIME 34.3 seconds (23.8-35.5)
--- NOTE | 2019-04-09 14:02 | Diagnostic Imaging Report ---
PROCEDURE: Ultrasound-guided diagnostic and therapeutic paracentesis Procedural Personnel Attending physician(s): Al Reyes MD Pre-procedure diagnosis: Ascites Post-procedure diagnosis: Same Indication: Ascites with pain or pressure symptoms Additional clinical history: None Complications: No immediate complications. IMPRESSION: Ultrasound-guided paracentesis with drainage of 6000 mL of serous fluid. Plan: Resume care by clinical team. PROCEDURE SUMMARY: - Limited abdominal ultrasound - Ultrasound-guided paracentesis - Additional procedure(s): None PROCEDURE DETAILS: Pre-procedure Consent: Informed consent for the procedure including risks, benefits and alternatives was obtained and time-out was performed prior to the procedure. Preparation: The site was prepared and draped using maximal sterile barrier technique including cutaneous antisepsis. Anesthesia/sedation Level of anesthesia/sedation: No sedation Anesthesia/sedation administered by: Not applicable Initial abdominal ultrasound Initial abdominal ultrasound was performed. Findings: Large ascites. A safe window for paracentesis was identified. Paracentesis Local anesthesia was administered. The peritoneal cavity was accessed and fluid return confirmed position. Ascites was drained. The catheter was then removed, and a sterile bandage was applied. Paracentesis access technique: Real-time ultrasound guidance Catheter placed: 5F Yueh Post-drainage ultrasound: Large ascites Additional Details Additional description of procedure: None Equipment details: None Specimens removed: Abdominal fluid Estimated blood loss (mL): Less than 10 Standardized report: [email or web address] Attestation Signer name: Al Reyes MD I attest that I was present for the entire procedure. I reviewed the stored images and agree with the report as written. Signed by: Al Reyes MD on 04/09/2019 1:59 PM
[2019-04-09 16:08] LABS: BODY FLUID APPEARANCE CLOUDY; BODY FLUID COLOR STRAW; BODY FLUID TYPE PERITONEAL
[2019-04-09 16:12] LABS: RBC,BODY FLUID 734 cells/uL; WBC,BODY FLUID 16 cells/uL
[2019-04-09 18:10] LABS: LYMPHOCYTES,BODY FLUID 26 %; MONO/MACROPHG,BODY FLUID 34 %; NEUTROPHILS,BODY FLUID 10 %; OTHER CELLS,BODY FLUID 30 %
== END ==
LOC: US 11:38
PROVIDERS: ATTEND Internal Medicine Gastroenterology
DX: R18.8 Other ascites (principal)
CPT/HCPCS: 36415; 49083; 82040; 82150; 82945; 83615; 83986; 84157; 84478; 85025; 85610; 85730; 87070; 87116; 87205; 87206; 89051

== ENCOUNTER → 2019-04-14 | Outpatient (CLI) | payer MEDICARE ==
[2019-04-14 13:02] LABS: BASOPHILS % 0.3 % (0.0-1.0); EOSINOPHILS % 0.3 % (0.0-6.0); HEMATOCRIT 30.4 % (38.2-49.6); HEMOGLOBIN 10.9 g/dL (14.0-18.0); LYMPHOCYTES # (AUTO) 1.3 (1.0-3.2); LYMPHOCYTES % 14.4 % (18.0-39.1); MEAN CORPUSCULAR HEMOGLOBIN 37.6 pg (28-32); MEAN CORPUSCULAR HGB CONC 35.9 g/dL (31-35); MEAN CORPUSCULAR VOLUME 104.8 fL (81-99); MONOCYTES # (AUTO) 1.2 (0.2-0.8); MONOCYTES % 13.3 % (4.4-11.3); NEUTROPHILS # (AUTO) 6.2 (2.1-6.9); NEUTROPHILS % 70.8 % (38.7-80.0); PLATELET COUNT 112 x10e3/uL (140-360); RED CELL DISTRIBUTION WIDTH 18.6 % (11.7-14.4)
[2019-04-14 13:23] LABS: ALBUMIN 2.9 g/dL (3.5-5.0); ALBUMIN/GLOBULIN RATIO 0.8 (0.8-2.0); ANION GAP 11.4 mmol/L (8-16); CALCIUM 8.3 mg/dL (8.4-10.2); CREATININE, SERUM 1.49 mg/dL (0.72-1.25); POTASSIUM 4.4 mmol/L (3.5-5.1)
--- NOTE | 2019-04-14 14:11 | Diagnostic Imaging Report ---
PROCEDURE: Ultrasound-guided diagnostic and therapeutic paracentesis Procedural Personnel Attending physician(s): Al Reyes MD Pre-procedure diagnosis: Ascites Post-procedure diagnosis: Same Indication: Ascites with pain or pressure symptoms Additional clinical history: None Complications: No immediate complications. IMPRESSION: Ultrasound-guided paracentesis with drainage of 6700 mL of serous fluid. Plan: Resume care by clinical team. PROCEDURE SUMMARY: - Limited abdominal ultrasound - Ultrasound-guided paracentesis - Additional procedure(s): None PROCEDURE DETAILS: Pre-procedure Consent: Informed consent for the procedure including risks, benefits and alternatives was obtained and time-out was performed prior to the procedure. Preparation: The site was prepared and draped using maximal sterile barrier technique including cutaneous antisepsis. Anesthesia/sedation Level of anesthesia/sedation: No sedation Anesthesia/sedation administered by: Not applicable Initial abdominal ultrasound Initial abdominal ultrasound was performed. Findings: Large ascites. A safe window for paracentesis was identified. Paracentesis Local anesthesia was administered. The peritoneal cavity was accessed and fluid return confirmed position. Ascites was drained. The catheter was then removed, and a sterile bandage was applied. Paracentesis access technique: Real-time ultrasound guidance Catheter placed: 5F Yueh Post-drainage ultrasound: Large ascites Additional Details Additional description of procedure: None Equipment details: None Specimens removed: Abdominal fluid Estimated blood loss (mL): Less than 10 Standardized report: [email or web address] Attestation Signer name: Al Reyes MD I attest that I was present for the entire procedure. I reviewed the stored images and agree with the report as written. Signed by: Al Reyes MD on 04/14/2019 2:08 PM
[2019-04-14 14:36] LABS: BODY FLUID COLOR YELLOW; BODY FLUID TYPE PERITONEAL
[2019-04-14 14:37] LABS: BODY FLUID APPEARANCE CLOUDY
[2019-04-14 16:22] LABS: RBC,BODY FLUID 210 cells/uL; WBC,BODY FLUID 22 cells/uL
[2019-04-14 17:55] LABS: LYMPHOCYTES,BODY FLUID 50 %; MONO/MACROPHG,BODY FLUID 3 %; NEUTROPHILS,BODY FLUID 15 %; OTHER CELLS,BODY FLUID 32 %
[2019-04-14 19:56] LABS: PLATELET ESTIMATE ADEQUATE; PLATELET MORPHOLOGY COMMENT FEW LARGE; RBC MORPHOLOGY COMMENT NORMAL
== END ==
LOC: US 11:35
PROVIDERS: ATTEND Internal Medicine Gastroenterology
DX: R18.8 Other ascites (principal)
CPT/HCPCS: 36415; 49083; 80053; 82150; 82945; 83615; 83986; 84157; 84478; 85025; 87070; 87116; 87205; 87206; 89051

== ENCOUNTER → 2019-04-17 | Outpatient (CLI) | payer MEDICARE ==
--- NOTE | 2019-04-17 10:05 | Diagnostic Imaging Report ---
PROCEDURE: Ultrasound-guided diagnostic and therapeutic paracentesis Procedural Personnel Attending physician(s): Al Reyes MD Pre-procedure diagnosis: Ascites, cirrhosis Post-procedure diagnosis: Same Indication: Ascites with pain or pressure symptoms Additional clinical history: None Complications: No immediate complications. IMPRESSION: Ultrasound-guided paracentesis with drainage of 6000 mL of serous fluid. Plan: Resume care by clinical team. PROCEDURE SUMMARY: - Limited abdominal ultrasound - Ultrasound-guided paracentesis - Additional procedure(s): None PROCEDURE DETAILS: Pre-procedure Consent: Informed consent for the procedure including risks, benefits and alternatives was obtained and time-out was performed prior to the procedure. Preparation: The site was prepared and draped using maximal sterile barrier technique including cutaneous antisepsis. Anesthesia/sedation Level of anesthesia/sedation: No sedation Anesthesia/sedation administered by: Not applicable Initial abdominal ultrasound Initial abdominal ultrasound was performed. Findings: Large ascites. A safe window for paracentesis was identified. Paracentesis Local anesthesia was administered. The peritoneal cavity was accessed and fluid return confirmed position. Ascites was drained. The catheter was then removed, and a sterile bandage was applied. Paracentesis access technique: Real-time ultrasound guidance Catheter placed: 5F Yueh Post-drainage ultrasound: Large ascites Additional Details Additional description of procedure: None Equipment details: None Specimens removed: Abdominal fluid Estimated blood loss (mL): Less than 10 Standardized report: [email or web address] Attestation Signer name: Al Reyes MD I attest that I was present for the entire procedure. I reviewed the stored images and agree with the report as written. Signed by: Al Reyes MD on 04/17/2019 10:02 AM
[2019-04-17 12:50] LABS: BODY FLUID APPEARANCE CLOUDY; BODY FLUID COLOR STRAW; BODY FLUID TYPE PERITONEAL; RBC,BODY FLUID 927 cells/uL; WBC,BODY FLUID 112 cells/uL
[2019-04-17 15:51] LABS: LYMPHOCYTES,BODY FLUID 28 %; MONO/MACROPHG,BODY FLUID 3 %; NEUTROPHILS,BODY FLUID 10 %; OTHER CELLS,BODY FLUID 59 %
== END ==
LOC: US 08:46
PROVIDERS: ATTEND Internal Medicine Gastroenterology
DX: R18.8 Other ascites (principal)
CPT/HCPCS: 36415; 49083; 82040; 82150; 82945; 83615; 83690; 83986; 84157; 84478; 87070; 87116; 87205; 87206; 89051

== ENCOUNTER → 2019-04-21 | Outpatient (CLI) | payer MEDICARE ==
--- NOTE | 2019-04-21 10:26 | Diagnostic Imaging Report ---
PROCEDURE: Ultrasound-guided diagnostic and therapeutic paracentesis Procedural Personnel Attending physician(s): Al Reyes MD Pre-procedure diagnosis: Ascites, cirrhosis Post-procedure diagnosis: Same Indication: Ascites with pain or pressure symptoms Additional clinical history: None Complications: No immediate complications. IMPRESSION: Ultrasound-guided paracentesis with drainage of 4100 mL of serous fluid. Plan: Resume care by clinical team. PROCEDURE SUMMARY: - Limited abdominal ultrasound - Ultrasound-guided paracentesis - Additional procedure(s): None PROCEDURE DETAILS: Pre-procedure Consent: Informed consent for the procedure including risks, benefits and alternatives was obtained and time-out was performed prior to the procedure. Preparation: The site was prepared and draped using maximal sterile barrier technique including cutaneous antisepsis. Anesthesia/sedation Level of anesthesia/sedation: No sedation Anesthesia/sedation administered by: Not applicable Initial abdominal ultrasound Initial abdominal ultrasound was performed. Findings: Large ascites. A safe window for paracentesis was identified. Paracentesis Local anesthesia was administered. The peritoneal cavity was accessed and fluid return confirmed position. Ascites was drained. The catheter was then removed, and a sterile bandage was applied. Paracentesis access technique: Real-time ultrasound guidance Catheter placed: 5F Yueh Post-drainage ultrasound: Large ascites Additional Details Additional description of procedure: None Equipment details: None Specimens removed: Abdominal fluid Estimated blood loss (mL): Less than 10 Standardized report: [email or web address] Attestation Signer name: Al Reyes MD I attest that I was present for the entire procedure. I reviewed the stored images and agree with the report as written. Signed by: Al Reyes MD on 04/21/2019 10:22 AM
[2019-04-21 11:37] LABS: RBC,BODY FLUID 330 cells/uL; WBC,BODY FLUID 101 cells/uL
[2019-04-21 11:52] LABS: LYMPHOCYTES,BODY FLUID 43 %; MONO/MACROPHG,BODY FLUID 16 %; NEUTROPHILS,BODY FLUID 15 %; OTHER CELLS,BODY FLUID 26 %
[2019-04-21 12:54] LABS: BODY FLUID APPEARANCE CLOUDY; BODY FLUID COLOR STRAW; BODY FLUID TYPE PERITONEAL
== END ==
LOC: US 09:08
PROVIDERS: ATTEND Internal Medicine Gastroenterology
DX: R18.8 Other ascites (principal); K74.60 Unspecified cirrhosis of liver
CPT/HCPCS: 36415; 49083; 82040; 82150; 82945; 83615; 83690; 83986; 84157; 84478; 87070; 87116; 87205; 87206; 89051; C1729

== ENCOUNTER → 2019-04-25 | Outpatient (CLI) | payer MEDICARE ==
--- NOTE | 2019-04-25 13:01 | Diagnostic Imaging Report ---
PROCEDURE: Ultrasound-guided diagnostic and therapeutic paracentesis Procedural Personnel Attending physician(s): Al Reyes MD Pre-procedure diagnosis: Ascites, cirrhosis Post-procedure diagnosis: Same Indication: Ascites with pain or pressure symptoms Additional clinical history: None Complications: No immediate complications. IMPRESSION: Ultrasound-guided paracentesis with drainage of 4900 mL of serous fluid. Plan: Resume care by clinical team. PROCEDURE SUMMARY: - Limited abdominal ultrasound - Ultrasound-guided paracentesis - Additional procedure(s): None PROCEDURE DETAILS: Pre-procedure Consent: Informed consent for the procedure including risks, benefits and alternatives was obtained and time-out was performed prior to the procedure. Preparation: The site was prepared and draped using maximal sterile barrier technique including cutaneous antisepsis. Anesthesia/sedation Level of anesthesia/sedation: No sedation Anesthesia/sedation administered by: Not applicable Initial abdominal ultrasound Initial abdominal ultrasound was performed. Findings: Large ascites. A safe window for paracentesis was identified. Paracentesis Local anesthesia was administered. The peritoneal cavity was accessed and fluid return confirmed position. Ascites was drained. The catheter was then removed, and a sterile bandage was applied. Paracentesis access technique: Real-time ultrasound guidance Catheter placed: 5F Yueh Post-drainage ultrasound: Large ascites Additional Details Additional description of procedure: None Equipment details: None Specimens removed: Abdominal fluid Estimated blood loss (mL): Less than 10 Standardized report: [email or web address] Attestation Signer name: Al Reyes MD I attest that I was present for the entire procedure. I reviewed the stored images and agree with the report as written. Signed by: Al Reyes MD on 04/25/2019 12:58 PM
[2019-04-25 14:14] LABS: BODY FLUID APPEARANCE SL.CLOUDY; BODY FLUID COLOR YELLOW
[2019-04-25 14:22] LABS: RBC,BODY FLUID 717 cells/uL; WBC,BODY FLUID 109 cells/uL
[2019-04-25 14:28] LABS: LYMPHOCYTES,BODY FLUID 37 %; NEUTROPHILS,BODY FLUID 4 %; OTHER CELLS,BODY FLUID 2 %
[2019-04-25 14:31] LABS: MONO/MACROPHG,BODY FLUID 57 %
== END ==
LOC: US 11:47
PROVIDERS: ATTEND Internal Medicine Gastroenterology
DX: R18.8 Other ascites (principal); K74.60 Unspecified cirrhosis of liver
CPT/HCPCS: 36415; 49083; 82040; 82150; 82945; 83615; 83690; 83986; 84157; 84478; 87070; 87116; 87205; 87206; 89051

== ENCOUNTER → 2019-04-28 | Outpatient (CLI) | payer MEDICARE ==
--- NOTE | 2019-04-28 10:09 | Diagnostic Imaging Report ---
Ultrasound guided paracentesis, ascites. Clinical History: Ascites. Sedation: None. Radiologist: Jesus Manuel Joseph MD Cable Tower Operator: None. Estimated Blood Loss: < 1 cc. Specimen: 3750 cc of clear yellow fluid, samples sent to laboratory. Technique: Informed consent was obtained. The risks of pain, bleeding, infection, bowel perforation, injury to adjacent structures, and adverse medication reactions were discussed with the patient. After informed consent was obtained, the patient's abdomen was scanned. The right lower quadrant of the abdomen was selected for paracentesis. After the largest fluid pocket area was marked, and the anterior abdominal wall was evaluated with color Doppler to exclude presence of blood vessels traversing the area, the skin was prepped and draped in the usual sterile manner. After local anesthesia was achieved with 1% lidocaine, a 5 Croatian one-step catheter was advanced into the peritoneal cavity under ultrasound guidance. After completion of drainage, the catheter was removed. There was no evidence of complication. Impression: Successful ultrasound guided paracentesis. Signed by: Jesus Manuel Joseph MD on 04/28/2019 10:06 AM
[2019-04-28 11:36] LABS: BODY FLUID APPEARANCE CLOUDY; BODY FLUID COLOR STRAW; BODY FLUID TYPE ABDOMINAL
[2019-04-28 11:37] LABS: RBC,BODY FLUID 360 cells/uL; WBC,BODY FLUID 171 cells/uL
[2019-04-28 11:44] LABS: LYMPHOCYTES,BODY FLUID 28 %; MONO/MACROPHG,BODY FLUID 59 %; NEUTROPHILS,BODY FLUID 10 %; OTHER CELLS,BODY FLUID 3 %
== END ==
LOC: US 08:30
PROVIDERS: ATTEND Internal Medicine Gastroenterology
DX: R18.8 Other ascites (principal)
CPT/HCPCS: 36415; 49083; 82040; 82150; 82945; 83615; 83690; 83986; 84157; 84478; 87070; 87116; 87205; 87206; 89051

== ENCOUNTER → 2019-05-01 | Outpatient (CLI) | payer MEDICARE ==
[~2019-05-01] MED LIST changes: +ALBUMIN 25% 12.5GM 50ML 0 ML IV ONE; -ALBUMIN 25% 12.5GM 50ML 200 ML IV ONE
--- NOTE | 2019-05-01 10:42 | Diagnostic Imaging Report ---
Limited abdominal ultrasound Clinical indications: Ascites Technique/findings: A limited four-quadrant ultrasound of the abdomen was performed and only a small amount of ascites is present. The patient wishes to defer paracentesis until next week. Signed by: Jesus Manuel Joseph MD on 05/01/2019 10:38 AM
[2019-05-05 12:23] LABS: BODY FLUID APPEARANCE CLOUDY; BODY FLUID COLOR STRAW; BODY FLUID TYPE ABDOMINAL
[2019-05-05 12:30] LABS: RBC,BODY FLUID 316 cells/uL; WBC,BODY FLUID 135 cells/uL
[2019-05-05 18:56] LABS: BASOPHILS,BODY FLUID 1 %; EOSINOPHILS,BODY FLUID 1 %; LYMPHOCYTES,BODY FLUID 29 %; MONO/MACROPHG,BODY FLUID 4 %; NEUTROPHILS,BODY FLUID 11 %; OTHER CELLS,BODY FLUID 54 %
== END ==
LOC: US 08:53
PROVIDERS: ATTEND Internal Medicine Gastroenterology
DX: R18.8 Other ascites (principal)
CPT/HCPCS: 36415; 76705; 82040; 82150; 82945; 83615; 83690; 83986; 84157; 84478; 87070; 87116; 87205; 87206; 89051

== ENCOUNTER → 2019-05-05 | Outpatient (CLI) | payer MEDICARE ==
[~2019-05-05] MED LIST changes: -ALBUMIN 25% 12.5GM 50ML 0 ML IV ONE; +ALBUMIN 25% 12.5GM 50ML 200 ML IV ONE
[2019-05-05 09:33] LABS: BASOPHILS # (AUTO) 0.1 (0.0-0.1); BASOPHILS % 0.8 % (0.0-1.0); EOSINOPHILS # (AUTO) 0.1 (0.0-0.4); EOSINOPHILS % 0.9 % (0.0-6.0); HEMATOCRIT 28.7 % (38.2-49.6); HEMOGLOBIN 9.8 g/dL (14.0-18.0); LYMPHOCYTES # (AUTO) 1.1 (1.0-3.2); LYMPHOCYTES % 16.3 % (18.0-39.1); MEAN CORPUSCULAR HEMOGLOBIN 36.3 pg (28-32); MEAN CORPUSCULAR HGB CONC 34.1 g/dL (31-35); MEAN CORPUSCULAR VOLUME 106.3 fL (81-99); MONOCYTES # (AUTO) 0.8 (0.2-0.8); NEUTROPHILS # (AUTO) 4.6 (2.1-6.9); NEUTROPHILS % 69.2 % (38.7-80.0); PLATELET COUNT 116 x10e3/uL (140-360)
[2019-05-05 09:44] LABS: INR 1.12; PROTHROMBIN TIME 14.9 seconds (11.9-14.5)
[2019-05-05 09:45] LABS: PARTIAL THROMBOPLASTIN TIME 34.5 seconds (23.8-35.5)
[2019-05-05 09:50] LABS: ALANINE AMINOTRANSFERASE 35 IU/L (0-55); ALBUMIN 3.1 g/dL (3.5-5.0); ALBUMIN/GLOBULIN RATIO 1.2 (0.8-2.0); ALKALINE PHOSPHATASE 182 IU/L (40-150); ANION GAP 11.4 mmol/L (8-16); BLOOD UREA NITROGEN 25 mg/dL (7-26); BUN/CREATININE RATIO 22 (6-25); CALCIUM 8.4 mg/dL (8.4-10.2); CARBON DIOXIDE 21 mmol/L (22-29); CHLORIDE 98 mmol/L (98-107); CREATININE, SERUM 1.14 mg/dL (0.72-1.25); EST GLOMERULAR FILTRATION RATE > 60 ML/MIN (60-); GLUCOSE 93 mg/dL (74-118); POTASSIUM 4.4 mmol/L (3.5-5.1); SODIUM 126 mmol/L (136-145)
--- NOTE | 2019-05-05 10:15 | Diagnostic Imaging Report ---
Ultrasound guided paracentesis, 05/05/2019. Clinical History: Ascites. Sedation: None. Radiologist: Jesus Manuel Joseph MD Collar Shaper Operator: None. Estimated Blood Loss: < 1 cc. Specimen: 4200 cc of cloudy yellow fluid, samples sent to laboratory. Technique: Informed consent was obtained. The risks of pain, bleeding, infection, bowel perforation, injury to adjacent structures, and adverse medication reactions were discussed with the patient. After informed consent was obtained, the patient's abdomen was scanned. The right lower quadrant of the abdomen was selected for paracentesis. After the largest fluid pocket area was marked, and the anterior abdominal wall was evaluated with color Doppler to exclude presence of blood vessels traversing the area, the skin was prepped and draped in the usual sterile manner. After local anesthesia was achieved with 1% lidocaine, a 5 Spanish one-step catheter was advanced into the peritoneal cavity under ultrasound guidance. After completion of drainage, the catheter was removed. There was no evidence of complication. Impression: Successful ultrasound guided paracentesis. Signed by: Jesus Manuel Joseph MD on 05/05/2019 10:11 AM
== END ==
LOC: US 08:43
PROVIDERS: ATTEND Internal Medicine Gastroenterology
DX: R18.8 Other ascites (principal)
CPT/HCPCS: 36415; 49083; 80053; 85025; 85610; 85730

== ENCOUNTER → 2019-05-09 | Outpatient (CLI) | payer MEDICARE ==
--- NOTE | 2019-05-09 15:38 | Diagnostic Imaging Report ---
Ultrasound guided paracentesis, 05/09/2019. Clinical History: Ascites. Sedation: None. Radiologist: Jesus Manuel Joseph MD Office Employee: None. Estimated Blood Loss: < 1 cc. Specimen: 3600 cc of cloudy yellow fluid, samples sent to laboratory. Technique: Informed consent was obtained. The risks of pain, bleeding, infection, bowel perforation, injury to adjacent structures, and adverse medication reactions were discussed with the patient. After informed consent was obtained, the patient's abdomen was scanned. The left lower quadrant of the abdomen was selected for paracentesis. After the largest fluid pocket area was marked, and the anterior abdominal wall was evaluated with color Doppler to exclude presence of blood vessels traversing the area, the skin was prepped and draped in the usual sterile manner. After local anesthesia was achieved with 1% lidocaine, a 5 Taiwanese one-step catheter was advanced into the peritoneal cavity under ultrasound guidance. After completion of drainage, the catheter was removed. There was no evidence of complication. Impression: Successful ultrasound guided paracentesis. Signed by: Jesus Manuel Joseph MD on 05/09/2019 3:34 PM
[2019-05-09 19:47] LABS: LYMPHOCYTES,BODY FLUID 28 %; MONO/MACROPHG,BODY FLUID 4 %; NEUTROPHILS,BODY FLUID 4 %; OTHER CELLS,BODY FLUID 64 %
[2019-05-09 21:07] LABS: BODY FLUID APPEARANCE SL.CLOUDY; BODY FLUID COLOR YELLOW; BODY FLUID TYPE PERICARDIAL; RBC,BODY FLUID 19 cells/uL; WBC,BODY FLUID 29 cells/uL
== END ==
LOC: US 14:19
PROVIDERS: ATTEND Internal Medicine Gastroenterology
DX: R18.8 Other ascites (principal)
CPT/HCPCS: 36415; 49083; 82040; 82150; 82945; 83615; 83690; 83986; 84157; 84478; 87070; 87116; 87205; 87206; 89051; C1729

== ENCOUNTER → 2019-05-16 | Outpatient (CLI) | payer MEDICARE ==
[2019-05-16 16:15] LABS: BODY FLUID APPEARANCE SL.CLOUDY; BODY FLUID COLOR YELLOW; BODY FLUID TYPE PERITONEAL
[2019-05-16 16:28] LABS: RBC,BODY FLUID 38 cells/uL; WBC,BODY FLUID 39 cells/uL
--- NOTE | 2019-05-16 16:46 | Diagnostic Imaging Report ---
PROCEDURE: Ultrasound-guided diagnostic and therapeutic paracentesis Procedural Personnel Attending physician(s): Al Reyes MD Pre-procedure diagnosis: Ascites, cirrhosis Post-procedure diagnosis: Same Indication: Ascites with pain or pressure symptoms Additional clinical history: None Complications: No immediate complications. IMPRESSION: Ultrasound-guided paracentesis with drainage of 6000 mL of serous fluid. Plan: Resume care by clinical team. PROCEDURE SUMMARY: - Limited abdominal ultrasound - Ultrasound-guided paracentesis - Additional procedure(s): None PROCEDURE DETAILS: Pre-procedure Consent: Informed consent for the procedure including risks, benefits and alternatives was obtained and time-out was performed prior to the procedure. Preparation: The site was prepared and draped using maximal sterile barrier technique including cutaneous antisepsis. Anesthesia/sedation Level of anesthesia/sedation: No sedation Anesthesia/sedation administered by: Not applicable Initial abdominal ultrasound Initial abdominal ultrasound was performed. Findings: Large ascites. A safe window for paracentesis was identified. Paracentesis Local anesthesia was administered. The peritoneal cavity was accessed and fluid return confirmed position. Ascites was drained. The catheter was then removed, and a sterile bandage was applied. Paracentesis access technique: Real-time ultrasound guidance Catheter placed: 5F Yueh Post-drainage ultrasound: Large ascites Additional Details Additional description of procedure: None Equipment details: None Specimens removed: Abdominal fluid Estimated blood loss (mL): Less than 10 Standardized report: [email or web address] Attestation Signer name: Al Reyes MD I attest that I was present for the entire procedure. I reviewed the stored images and agree with the report as written. Signed by: Al Reyes MD on 05/16/2019 4:43 PM
[2019-05-16 17:11] LABS: EOSINOPHILS,BODY FLUID 3 %; LYMPHOCYTES,BODY FLUID 38 %; MONO/MACROPHG,BODY FLUID 6 %; NEUTROPHILS,BODY FLUID 21 %; OTHER CELLS,BODY FLUID 32 %
== END ==
LOC: US 12:39
PROVIDERS: ATTEND Internal Medicine Gastroenterology
DX: R18.8 Other ascites (principal)
CPT/HCPCS: 36415; 49083; 82150; 82945; 83615; 83690; 83986; 84157; 84478; 87070; 87116; 87205; 87206; 89051; C1729

== ENCOUNTER → 2019-05-23 | Outpatient (CLI) | payer MEDICARE ==
[~2019-05-23] MED LIST changes: +ALBUMIN 25% 12.5GM 50ML 0 ML IV ONE
--- NOTE | 2019-05-23 11:16 | Diagnostic Imaging Report ---
Ultrasound guided paracentesis, 05/23/2019. Clinical History: Ascites. Sedation: None. Radiologist: Jesus Manuel Joseph MD Local City Driver: None. Estimated Blood Loss: < 1 cc. Specimen: 5600 cc of cloudy yellow fluid, samples sent to laboratory. Technique: Informed consent was obtained. The risks of pain, bleeding, infection, bowel perforation, injury to adjacent structures, and adverse medication reactions were discussed with the patient. After informed consent was obtained, the patient's abdomen was scanned. The right lower quadrant of the abdomen was selected for paracentesis. After the largest fluid pocket area was marked, and the anterior abdominal wall was evaluated with color Doppler to exclude presence of blood vessels traversing the area, the skin was prepped and draped in the usual sterile manner. After local anesthesia was achieved with 1% lidocaine, a 5 [place] one-step catheter was advanced into the peritoneal cavity under ultrasound guidance. After completion of drainage, the catheter was removed. There was no evidence of complication. Impression: Successful ultrasound guided paracentesis. Signed by: Jesus Manuel Joseph MD on 05/23/2019 11:13 AM
[2019-05-23 15:00] LABS: LYMPHOCYTES,BODY FLUID 25 %; MONO/MACROPHG,BODY FLUID 6 %; NEUTROPHILS,BODY FLUID 15 %; OTHER CELLS,BODY FLUID 54 %
[2019-05-23 15:07] LABS: BODY FLUID APPEARANCE SL.CLOUDY; BODY FLUID COLOR YELLOW; BODY FLUID TYPE PERITONEAL
[2019-05-23 16:52] LABS: RBC,BODY FLUID 31 cells/uL; WBC,BODY FLUID 67 cells/uL
== END ==
LOC: US 09:49
PROVIDERS: ATTEND Internal Medicine Gastroenterology
DX: R18.8 Other ascites (principal)
CPT/HCPCS: 36415; 49083; 82040; 82150; 82945; 83615; 83690; 83986; 84157; 84478; 87070; 87116; 87205; 87206; 89051; C1729

== ENCOUNTER → 2019-06-30 | Outpatient (CLI) | payer MEDICARE ==
[~2019-06-30] MED LIST changes: -ALBUMIN 25% 12.5GM 50ML 0 ML IV ONE
--- NOTE | 2019-06-30 14:58 | Diagnostic Imaging Report ---
PROCEDURE: Ultrasound-guided diagnostic and therapeutic paracentesis Procedural Personnel Attending physician(s): Al Reyes MD Pre-procedure diagnosis: Ascites, cirrhosis Post-procedure diagnosis: Same Indication: Ascites with pain or pressure symptoms Additional clinical history: None Complications: No immediate complications. IMPRESSION: Ultrasound-guided paracentesis with drainage of 3400 mL of serous fluid. Plan: Resume care by clinical team. PROCEDURE SUMMARY: - Limited abdominal ultrasound - Ultrasound-guided paracentesis - Additional procedure(s): None PROCEDURE DETAILS: Pre-procedure Consent: Informed consent for the procedure including risks, benefits and alternatives was obtained and time-out was performed prior to the procedure. Preparation: The site was prepared and draped using maximal sterile barrier technique including cutaneous antisepsis. Anesthesia/sedation Level of anesthesia/sedation: No sedation Anesthesia/sedation administered by: Not applicable Initial abdominal ultrasound Initial abdominal ultrasound was performed. Findings: Large ascites. A safe window for paracentesis was identified. Paracentesis Local anesthesia was administered. The peritoneal cavity was accessed and fluid return confirmed position. Ascites was drained. The catheter was then removed, and a sterile bandage was applied. Paracentesis access technique: Real-time ultrasound guidance Catheter placed: 5F Yueh Post-drainage ultrasound: Moderate ascites Additional Details Additional description of procedure: None Equipment details: None Specimens removed: Abdominal fluid Estimated blood loss (mL): Less than 10 Standardized report: [email or web address] Attestation Signer name: Al Reyes MD I attest that I was present for the entire procedure. I reviewed the stored images and agree with the report as written. Signed by: Al Reyes MD on 06/30/2019 2:56 PM
[2019-06-30 18:36] LABS: BODY FLUID APPEARANCE SL.CLOUDY; BODY FLUID COLOR YELLOW; BODY FLUID TYPE PERITONEAL; RBC,BODY FLUID 144 cells/uL; WBC,BODY FLUID 57 cells/uL
[2019-07-01 16:07] LABS: LYMPHOCYTES,BODY FLUID 35 %; MONO/MACROPHG,BODY FLUID 4 %; NEUTROPHILS,BODY FLUID 2 %; OTHER CELLS,BODY FLUID 59 %
== END ==
LOC: US 13:24
PROVIDERS: ATTEND Internal Medicine Gastroenterology
DX: R18.8 Other ascites (principal); K74.60 Unspecified cirrhosis of liver
CPT/HCPCS: 36415; 49083; 82040; 82150; 82945; 83615; 83690; 83986; 84157; 84478; 87070; 87116; 87205; 87206; 88112; 89051

== ENCOUNTER → 2019-07-04 | Outpatient (CLI) | payer MEDICARE ==
[2019-07-04 10:54] LABS: HEMOGLOBIN 10.6 g/dL (14.0-18.0)
[2019-07-04 11:04] LABS: PARTIAL THROMBOPLASTIN TIME 32.5 seconds (23.8-35.5)
[2019-07-04 11:35] LABS: INR 1.07; PROTHROMBIN TIME 14.5 seconds (11.9-14.5)
--- NOTE | 2019-07-04 12:50 | Diagnostic Imaging Report ---
Procedure: Ultrasound-guided paracentesis profiling machine set up operator: Ric Henry M.D. Pre-operative diagnosis: Ascites Post-operative diagnosis: Ascites Conscious Sedation: None. The patient's heart rate and pulse oximetry were continuously monitored by the IR nurse. Additional Medications: Lidocaine 1% for local anesthesia Estimated blood loss: Less than 1 cc. Specimen: 4800 cc of yellow fluid Implants: None TECHNIQUE/FINDINGS: Informed consent was obtained from the patient and documented in the medical record. The patient was placed in the supine position. Initial ultrasound demonstrated ascites. The right lower abdomen was prepped and draped in standard sterile fashion. 1% lidocaine was infiltrated into the skin and subcutaneous tissues for local anesthesia. Then under continuous sonographic guidance, a 5 Fr catheter was advanced into the peritoneal space. The catheter was connected to vacuum bottle with subsequent evacuation of 4800 cc of serous fluid. The catheter was removed and sterile dressing was applied. Sample was sent to the lab. The patient tolerated the procedure well. IMPRESSION: Successful ultrasound-guided paracentesis. Signed by: Ric Henry on 07/04/2019 12:47 PM
[2019-07-04 14:28] LABS: BODY FLUID APPEARANCE SL.CLOUDY; BODY FLUID COLOR YELLOW; BODY FLUID TYPE PERITONEAL
[2019-07-04 15:28] LABS: RBC,BODY FLUID 77 cells/uL; WBC,BODY FLUID 67 cells/uL
[2019-07-04 15:34] LABS: LYMPHOCYTES,BODY FLUID 42 %; MONO/MACROPHG,BODY FLUID 13 %; NEUTROPHILS,BODY FLUID 3 %; OTHER CELLS,BODY FLUID 42 %
== END ==
LOC: US 10:28
PROVIDERS: ATTEND Internal Medicine Gastroenterology
DX: R18.8 Other ascites (principal)
CPT/HCPCS: 36415; 49083; 82040; 82150; 82945; 83615; 83690; 83986; 84157; 84478; 85014; 85049; 85610; 85730; 87070; 87116; 87205; 87206; 89051

== ENCOUNTER → 2019-07-07 | Outpatient (CLI) | payer MEDICARE ==
[~2019-07-07] MED LIST changes: -ALBUMIN 25% 12.5GM 50ML 200 ML IV ONE
--- NOTE | 2019-07-07 13:50 | Diagnostic Imaging Report ---
Exam: Ultrasound guided paracentesis Clinical History: Ascites Consent: Benefits and risks were explained to the patient who gave consent to the procedure. Complication: None immediate Procedure: The right lower quadrant was prepped and draped in usual sterile fashion. 1% lidocaine was used as the anesthetic. Under ultrasound guidance, a paracentesis catheter was inserted into the peritoneal cavity. Approximately 3400 cc of clear yellow ascitic fluid was aspirated. The catheter was removed. Hemostasis was achieved. The patient tolerated the procedure well without any adverse reactions and left the ultrasound department in stable condition. Impression: Ultrasound guided paracentesis as described. Signed by: Dr. Samuel Hilario MD on 07/07/2019 1:47 PM
[2019-07-07 15:27] LABS: BODY FLUID APPEARANCE SL.CLOUDY; BODY FLUID COLOR YELLOW; BODY FLUID TYPE PERITONEAL; RBC,BODY FLUID 128 cells/uL; WBC,BODY FLUID 67 cells/uL
[2019-07-07 17:03] LABS: LYMPHOCYTES,BODY FLUID 41 %; MONO/MACROPHG,BODY FLUID 13 %; NEUTROPHILS,BODY FLUID 2 %; OTHER CELLS,BODY FLUID 44 %
== END ==
LOC: US 11:55
PROVIDERS: ATTEND Internal Medicine Gastroenterology
DX: R18.8 Other ascites (principal)
CPT/HCPCS: 36415; 49083; 82040; 82150; 82945; 83615; 83690; 84157; 84478; 87070; 87116; 87205; 87206; 89051

== ENCOUNTER → 2019-07-10 | Outpatient (CLI) | payer MEDICARE ==
[~2019-07-10] MED LIST changes: +ALBUMIN 25% 12.5GM 50ML 200 ML IV ONE
--- NOTE | 2019-07-10 09:41 | Diagnostic Imaging Report ---
Procedure: Ultrasound-guided paracentesis pin drafter operator: Garrett Carlos MD Pre-operative diagnosis: Ascites Post-operative diagnosis: Ascites Conscious Sedation: None. Additional Medications: Lidocaine 1% for local anesthesia Estimated blood loss: Less than 1 cc. Specimen: 2000 cc of clear yellow fluid Implants: None TECHNIQUE/FINDINGS: Informed consent was obtained from the patient and documented in the medical record. The patient was placed in the supine position. Initial ultrasound demonstrated ascites. The right lower abdomen was prepped and draped in standard sterile fashion. 1% lidocaine was infiltrated into the skin and subcutaneous tissues for local anesthesia. Then under continuous sonographic guidance, a 5 Fr catheter was advanced into the peritoneal space. The catheter was connected to vacuum bottle with subsequent evacuation of 2000 cc of serous fluid. The catheter was removed and sterile dressing was applied. Sample was sent to the lab. The patient tolerated the procedure well. IMPRESSION: Successful ultrasound-guided paracentesis. Signed by: Dr. Garrett Carlos MD on 07/10/2019 9:38 AM
[2019-07-10 12:16] LABS: LYMPHOCYTES,BODY FLUID 25 %; MONO/MACROPHG,BODY FLUID 7 %; NEUTROPHILS,BODY FLUID 1 %; OTHER CELLS,BODY FLUID 67 %
[2019-07-10 12:17] LABS: BODY FLUID TYPE ABDOMINAL
[2019-07-10 12:18] LABS: BODY FLUID APPEARANCE CLOUDY; BODY FLUID COLOR YELLOW
[2019-07-10 12:19] LABS: RBC,BODY FLUID 668 cells/uL; WBC,BODY FLUID 371 cells/uL
== END ==
LOC: US 08:09
PROVIDERS: ATTEND Internal Medicine Gastroenterology
DX: R18.8 Other ascites (principal)
CPT/HCPCS: 36415; 49083; 82040; 82150; 82945; 83615; 83690; 83986; 84157; 84478; 87070; 87205; 89051

== ENCOUNTER → 2019-07-14 | Outpatient (CLI) | payer MEDICARE ==
--- NOTE | 2019-07-14 16:25 | Diagnostic Imaging Report ---
PROCEDURE: Ultrasound-guided diagnostic and therapeutic paracentesis Procedural Personnel Attending physician(s): Al Reyes MD Pre-procedure diagnosis: Ascites, cirrhosis Post-procedure diagnosis: Same Indication: Ascites with pain or pressure symptoms Additional clinical history: None Complications: No immediate complications. IMPRESSION: Ultrasound-guided paracentesis with drainage of 4800 mL of serous fluid. Plan: Resume care by clinical team. PROCEDURE SUMMARY: - Limited abdominal ultrasound - Ultrasound-guided paracentesis - Additional procedure(s): None PROCEDURE DETAILS: Pre-procedure Consent: Informed consent for the procedure including risks, benefits and alternatives was obtained and time-out was performed prior to the procedure. Preparation: The site was prepared and draped using maximal sterile barrier technique including cutaneous antisepsis. Anesthesia/sedation Level of anesthesia/sedation: No sedation Anesthesia/sedation administered by: Not applicable Initial abdominal ultrasound Initial abdominal ultrasound was performed. Findings: Large ascites. A safe window for paracentesis was identified. Paracentesis Local anesthesia was administered. The peritoneal cavity was accessed and fluid return confirmed position. Ascites was drained. The catheter was then removed, and a sterile bandage was applied. Paracentesis access technique: Real-time ultrasound guidance Catheter placed: 5F Yueh Post-drainage ultrasound: Moderate ascites Additional Details Additional description of procedure: None Equipment details: None Specimens removed: Abdominal fluid Estimated blood loss (mL): Less than 10 Standardized report: [email or web address] Attestation Signer name: Al Reyes MD I attest that I was present for the entire procedure. I reviewed the stored images and agree with the report as written. Signed by: Al Reyes MD on 07/14/2019 4:23 PM
[2019-07-14 17:32] LABS: BODY FLUID APPEARANCE CLEAR; BODY FLUID COLOR YELLOW; BODY FLUID TYPE PERITONEAL; RBC,BODY FLUID 88 cells/uL; WBC,BODY FLUID 11 cells/uL
[2019-07-14 20:49] LABS: LYMPHOCYTES,BODY FLUID 21 %; MONO/MACROPHG,BODY FLUID 4 %; OTHER CELLS,BODY FLUID 75 %
== END ==
LOC: US 14:01
PROVIDERS: ATTEND Internal Medicine Gastroenterology
DX: R18.8 Other ascites (principal); K74.60 Unspecified cirrhosis of liver
CPT/HCPCS: 36415; 49083; 82040; 82150; 82945; 83615; 83690; 83986; 84157; 84478; 87070; 87116; 87205; 87206; 89051

== ENCOUNTER → 2019-07-17 | Outpatient (CLI) | payer MEDICARE ==
[2019-07-17 14:33] LABS: BODY FLUID APPEARANCE CLEAR; BODY FLUID COLOR YELLOW; BODY FLUID TYPE PERITONEAL
[2019-07-17 14:34] LABS: RBC,BODY FLUID 208 cells/uL; WBC,BODY FLUID 103 cells/uL
--- NOTE | 2019-07-17 15:20 | Diagnostic Imaging Report ---
Exam: Ultrasound guided paracentesis Clinical History: Ascites Consent: Benefits and risks were explained to the patient who gave consent to the procedure. Complication: None immediate Procedure: The right upper quadrant was prepped and draped in usual sterile fashion. 1% lidocaine was used as the anesthetic. Under ultrasound guidance, a paracentesis catheter was inserted into the peritoneal cavity. Approximately 4 L of clear yellow ascitic fluid was aspirated. The catheter was removed. Hemostasis was achieved. The patient tolerated the procedure well without any adverse reactions and left the ultrasound department in stable condition. Impression: Ultrasound guided paracentesis as described. Signed by: Dr. Samuel Hilario MD on 07/17/2019 3:17 PM
[2019-07-17 15:34] LABS: LYMPHOCYTES,BODY FLUID 41 %; MONO/MACROPHG,BODY FLUID 6 %; NEUTROPHILS,BODY FLUID 2 %; OTHER CELLS,BODY FLUID 51 %
== END ==
LOC: US 10:26
PROVIDERS: ATTEND Internal Medicine Gastroenterology
DX: R18.8 Other ascites (principal)
CPT/HCPCS: 36415; 49083; 82040; 82150; 82945; 83615; 83690; 83986; 84157; 84478; 87070; 87116; 87205; 87206; 89051

== ENCOUNTER → 2019-07-21 | Outpatient (CLI) | payer MEDICARE ==
[~2019-07-21] MED LIST changes: +ALBUMIN 25% 12.5GM 50ML 100 ML IV ONE; -ALBUMIN 25% 12.5GM 50ML 200 ML IV ONE
--- NOTE | 2019-07-21 10:19 | Diagnostic Imaging Report ---
EXAM: Focused Ultrasound Evaluation of the abdomen INDICATION: ^[id number] ^[id number] ^ASCITES COMPARISON: None TECHNIQUE/FINDINGS: Cardenas scale, color Doppler images of the 4 quadrants of the abdomen were obtained. Small volume ascites, insufficient for safe performance of therapeutic paracentesis. IMPRESSION: Small ascites, insufficient for therapeutic paracentesis. Signed by: Al Reyes MD on 07/21/2019 10:17 AM
== END ==
LOC: US 08:07
PROVIDERS: ATTEND Internal Medicine Gastroenterology
DX: R18.8 Other ascites (principal)
CPT/HCPCS: 76705

== ENCOUNTER → 2019-07-24 | Outpatient (CLI) | payer MEDICARE ==
[~2019-07-24] MED LIST changes: -ALBUMIN 25% 12.5GM 50ML 100 ML IV ONE; +ALBUMIN 25% 12.5GM 50ML 200 ML IV ONE
[2019-07-24 14:58] LABS: BODY FLUID APPEARANCE SL.CLOUDY; BODY FLUID COLOR YELLOW; BODY FLUID TYPE PERITONEAL
[2019-07-24 14:59] LABS: RBC,BODY FLUID 177 cells/uL; WBC,BODY FLUID 129 cells/uL
[2019-07-24 15:50] LABS: LYMPHOCYTES,BODY FLUID 29 %; MONO/MACROPHG,BODY FLUID 11 %; OTHER CELLS,BODY FLUID 60 %
--- NOTE | 2019-07-25 09:15 | Diagnostic Imaging Report ---
PROCEDURE: Ultrasound-guided diagnostic and therapeutic paracentesis Procedural Personnel Attending physician(s): Al Reyes MD Pre-procedure diagnosis: Ascites, cirrhosis Post-procedure diagnosis: Same Indication: Ascites with pain or pressure symptoms Additional clinical history: None Complications: No immediate complications. IMPRESSION: Ultrasound-guided paracentesis with drainage of 4000 mL of serous fluid. Plan: Resume care by clinical team. PROCEDURE SUMMARY: - Limited abdominal ultrasound - Ultrasound-guided paracentesis - Additional procedure(s): None PROCEDURE DETAILS: Pre-procedure Consent: Informed consent for the procedure including risks, benefits and alternatives was obtained and time-out was performed prior to the procedure. Preparation: The site was prepared and draped using maximal sterile barrier technique including cutaneous antisepsis. Anesthesia/sedation Level of anesthesia/sedation: No sedation Anesthesia/sedation administered by: Not applicable Initial abdominal ultrasound Initial abdominal ultrasound was performed. Findings: Large ascites. A safe window for paracentesis was identified. Paracentesis Local anesthesia was administered. The peritoneal cavity was accessed and fluid return confirmed position. Ascites was drained. The catheter was then removed, and a sterile bandage was applied. Paracentesis access technique: Real-time ultrasound guidance Catheter placed: 5F Yueh Post-drainage ultrasound: Moderate ascites Additional Details Additional description of procedure: None Equipment details: None Specimens removed: Abdominal fluid Estimated blood loss (mL): Less than 10 Standardized report: [email or web address] Attestation Signer name: Al Reyes MD I attest that I was present for the entire procedure. I reviewed the stored images and agree with the report as written. Signed by: Al Reyes MD on 07/25/2019 9:13 AM
== END ==
LOC: US 10:22
PROVIDERS: ATTEND Internal Medicine Gastroenterology
DX: R18.8 Other ascites (principal); K74.60 Unspecified cirrhosis of liver
CPT/HCPCS: 36415; 49083; 82040; 82150; 82945; 83615; 83690; 83986; 84157; 84478; 87070; 87205; 89051

== ENCOUNTER → 2019-07-28 | Outpatient (CLI) | payer MEDICARE ==
--- NOTE | 2019-07-28 13:26 | Diagnostic Imaging Report ---
Ultrasound guided paracentesis, 07/28/2019. Clinical History: Ascites. Sedation: None. Radiologist: Jesus Manuel Joseph MD Rotary Driller Prospecting: None. Estimated Blood Loss: < 1 cc. Specimen: 4600 cc of emiliano fluid, samples sent to laboratory. Technique: Informed consent was obtained. The risks of pain, bleeding, infection, bowel perforation, injury to adjacent structures, and adverse medication reactions were discussed with the patient. After informed consent was obtained, the patient's abdomen was scanned. The right lower quadrant of the abdomen was selected for paracentesis. After the largest fluid pocket area was marked, and the anterior abdominal wall was evaluated with color Doppler to exclude presence of blood vessels traversing the area, the skin was prepped and draped in the usual sterile manner. After local anesthesia was achieved with 1% lidocaine, a 5 [place] one-step catheter was advanced into the peritoneal cavity under ultrasound guidance. After completion of drainage, the catheter was removed. There was no evidence of complication. Impression: Successful ultrasound guided paracentesis. Signed by: Jesus Manuel Joseph MD on 07/28/2019 1:23 PM
[2019-07-28 13:49] LABS: BODY FLUID TYPE PERITONEAL
[2019-07-28 15:21] LABS: BODY FLUID APPEARANCE SL.CLOUDY; BODY FLUID COLOR YELLOW
[2019-07-28 15:22] LABS: RBC,BODY FLUID 393 cells/uL; WBC,BODY FLUID 14 cells/uL
[2019-07-28 16:39] LABS: LYMPHOCYTES,BODY FLUID 30 %; MONO/MACROPHG,BODY FLUID 2 %
[2019-07-28 17:01] LABS: OTHER CELLS,BODY FLUID 68 %
== END ==
LOC: US 10:38
PROVIDERS: ATTEND Internal Medicine Gastroenterology
DX: R18.8 Other ascites (principal)
CPT/HCPCS: 36415; 49083; 82040; 82150; 82945; 83615; 83690; 83986; 84157; 84478; 87070; 87116; 87205; 87206; 89051

== ENCOUNTER → 2019-07-31 | Outpatient (CLI) | payer MEDICARE ==
[2019-07-31 13:39] LABS: BODY FLUID APPEARANCE SL.CLOUDY; BODY FLUID COLOR YELLOW; BODY FLUID TYPE ASCITIES
[2019-07-31 13:40] LABS: RBC,BODY FLUID 1557 cells/uL; WBC,BODY FLUID 125 cells/uL
--- NOTE | 2019-07-31 13:59 | Diagnostic Imaging Report ---
PROCEDURE: Ultrasound-guided diagnostic and therapeutic paracentesis Procedural Personnel Attending physician(s): Al Reyes MD Pre-procedure diagnosis: Ascites, cirrhosis Post-procedure diagnosis: Same Indication: Ascites with pain or pressure symptoms Additional clinical history: None Complications: No immediate complications. IMPRESSION: Ultrasound-guided paracentesis with drainage of 3600 mL of serous fluid. Plan: Resume care by clinical team. PROCEDURE SUMMARY: - Limited abdominal ultrasound - Ultrasound-guided paracentesis - Additional procedure(s): None PROCEDURE DETAILS: Pre-procedure Consent: Informed consent for the procedure including risks, benefits and alternatives was obtained and time-out was performed prior to the procedure. Preparation: The site was prepared and draped using maximal sterile barrier technique including cutaneous antisepsis. Anesthesia/sedation Level of anesthesia/sedation: No sedation Anesthesia/sedation administered by: Not applicable Initial abdominal ultrasound Initial abdominal ultrasound was performed. Findings: Large ascites. A safe window for paracentesis was identified. Paracentesis Local anesthesia was administered. The peritoneal cavity was accessed and fluid return confirmed position. Ascites was drained. The catheter was then removed, and a sterile bandage was applied. Paracentesis access technique: Real-time ultrasound guidance Catheter placed: 5F Yueh Post-drainage ultrasound: Moderate ascites Additional Details Additional description of procedure: None Equipment details: None Specimens removed: Abdominal fluid Estimated blood loss (mL): Less than 10 Standardized report: [email or web address] Attestation Signer name: Al Reyes MD I attest that I was present for the entire procedure. I reviewed the stored images and agree with the report as written. Signed by: Al Reyes MD on 07/31/2019 1:56 PM
[2019-07-31 15:07] LABS: LYMPHOCYTES,BODY FLUID 47 %; MONO/MACROPHG,BODY FLUID 7 %; NEUTROPHILS,BODY FLUID 1 %; OTHER CELLS,BODY FLUID 45 %
== END ==
LOC: US 10:42
PROVIDERS: ATTEND Internal Medicine Gastroenterology
DX: R18.8 Other ascites (principal); K74.60 Unspecified cirrhosis of liver
CPT/HCPCS: 36415; 49083; 82040; 82150; 82945; 83615; 83690; 83986; 84157; 84478; 87070; 87116; 87205; 87206; 89051; C1729

== ENCOUNTER → 2019-08-05 | Outpatient (CLI) | payer MEDICARE ==
[2019-08-05 10:54] LABS: HEMOGLOBIN 11.2 g/dL (14.0-18.0)
[2019-08-05 11:14] LABS: INR 0.97; PROTHROMBIN TIME 13.5 seconds (11.9-14.5)
--- NOTE | 2019-08-05 13:41 | Diagnostic Imaging Report ---
Procedure: Ultrasound-guided paracentesis stem threshing machine operator: Garrett Carlos MD Pre-operative diagnosis: Ascites Post-operative diagnosis: Ascites Conscious Sedation: None. The patient's heart rate and pulse oximetry were continuously monitored by the IR nurse. Additional Medications: Lidocaine 1% for local anesthesia Estimated blood loss: Less than 1 cc. Specimen: 3600 cc of clear yellow fluid Implants: None TECHNIQUE/FINDINGS: Informed consent was obtained from the patient and documented in the medical record. The patient was placed in the supine position. Initial ultrasound demonstrated ascites. The right lower abdomen was prepped and draped in standard sterile fashion. 1% lidocaine was infiltrated into the skin and subcutaneous tissues for local anesthesia. Then under continuous sonographic guidance, a 5 Fr catheter was advanced into the peritoneal space. The catheter was connected to vacuum bottle with subsequent evacuation of 3600 cc of serous fluid. The catheter was removed and sterile dressing was applied. The patient tolerated the procedure well. IMPRESSION: Successful ultrasound-guided paracentesis. Signed by: Dr. Garrett Carlos MD on 08/05/2019 1:38 PM
[2019-08-05 16:32] LABS: GLUCOSE,BODY FLUID 107 mg/dL
[2019-08-05 16:34] LABS: AMYLASE,BODY FLUID 26
[2019-08-05 22:30] LABS: LYMPHOCYTES,BODY FLUID 34 %; MONO/MACROPHG,BODY FLUID 5 %; OTHER CELLS,BODY FLUID 61 %
[2019-08-05 22:45] LABS: BODY FLUID APPEARANCE SL.CLOUDY; BODY FLUID COLOR STRAW; BODY FLUID TYPE ASCITIES
[2019-08-05 22:53] LABS: NEUTROPHILS,BODY FLUID 0 %; RBC,BODY FLUID 343 cells/uL; WBC,BODY FLUID 120 cells/uL
== END ==
LOC: US 10:30
PROVIDERS: ATTEND Internal Medicine Gastroenterology
DX: R18.8 Other ascites (principal)
CPT/HCPCS: 36415; 49083; 82040; 82150; 82945; 83615; 83690; 84478; 85014; 85049; 85610; 85730; 87070; 87116; 87205; 87206; 89051

== ENCOUNTER → 2019-08-08 | Outpatient (CLI) | payer MEDICARE ==
--- NOTE | 2019-08-08 09:41 | Diagnostic Imaging Report ---
PROCEDURE: Ultrasound-guided diagnostic and therapeutic paracentesis Procedural Personnel Attending physician(s): Al Reyes MD Pre-procedure diagnosis: Ascites, cirrhosis Post-procedure diagnosis: Same Indication: Ascites with pain or pressure symptoms Additional clinical history: None Complications: No immediate complications. IMPRESSION: Ultrasound-guided paracentesis with drainage of 3000 mL of serous fluid. Plan: Resume care by clinical team. PROCEDURE SUMMARY: - Limited abdominal ultrasound - Ultrasound-guided paracentesis - Additional procedure(s): None PROCEDURE DETAILS: Pre-procedure Consent: Informed consent for the procedure including risks, benefits and alternatives was obtained and time-out was performed prior to the procedure. Preparation: The site was prepared and draped using maximal sterile barrier technique including cutaneous antisepsis. Anesthesia/sedation Level of anesthesia/sedation: No sedation Anesthesia/sedation administered by: Not applicable Initial abdominal ultrasound Initial abdominal ultrasound was performed. Findings: Large ascites. A safe window for paracentesis was identified. Paracentesis Local anesthesia was administered. The peritoneal cavity was accessed and fluid return confirmed position. Ascites was drained. The catheter was then removed, and a sterile bandage was applied. Paracentesis access technique: Real-time ultrasound guidance Catheter placed: 5F Yueh Post-drainage ultrasound: Moderate ascites Additional Details Additional description of procedure: None Equipment details: None Specimens removed: Abdominal fluid Estimated blood loss (mL): Less than 10 Standardized report: [email or web address] Attestation Signer name: Al Reyes MD I attest that I was present for the entire procedure. I reviewed the stored images and agree with the report as written. Signed by: Al Reyes MD on 08/08/2019 9:38 AM
[2019-08-08 12:11] LABS: BODY FLUID COLOR YELLOW; BODY FLUID TYPE PERITONEAL
[2019-08-08 12:12] LABS: BODY FLUID APPEARANCE CLEAR
[2019-08-08 12:14] LABS: RBC,BODY FLUID 201 cells/uL; WBC,BODY FLUID 177 cells/uL
[2019-08-08 13:17] LABS: LYMPHOCYTES,BODY FLUID 63 %; MONO/MACROPHG,BODY FLUID 37 %
== END ==
LOC: US 07:35
PROVIDERS: ATTEND Internal Medicine Gastroenterology
DX: R18.8 Other ascites (principal); K74.60 Unspecified cirrhosis of liver
CPT/HCPCS: 36415; 49083; 82040; 82150; 82945; 83615; 83690; 83986; 84157; 84478; 87070; 87116; 87205; 87206; 89051; C1729

== ENCOUNTER → 2019-08-12 | Outpatient (CLI) | payer MEDICARE ==
--- NOTE | 2019-08-12 12:08 | Diagnostic Imaging Report ---
Procedure: Ultrasound-guided paracentesis burnishing machine operator: Luiz Vuong DO Pre-operative diagnosis: Ascites Post-operative diagnosis: Ascites Conscious Sedation: None. The patient's heart rate and pulse oximetry were continuously monitored by the IR nurse. Additional Medications: Lidocaine 1% for local anesthesia Estimated blood loss: Less than 1 cc. Specimen: As below Implants: None TECHNIQUE/FINDINGS: Informed consent was obtained from the patient and documented in the medical record. The patient was placed in the supine position. Initial ultrasound demonstrated ascites. The right lower abdomen was prepped and draped in standard sterile fashion. 1% lidocaine was infiltrated into the skin and subcutaneous tissues for local anesthesia. Then under continuous sonographic guidance, a 5 Fr catheter was advanced into the peritoneal space. The catheter was connected to vacuum bottle with subsequent evacuation of 2600 cc of serous fluid. The catheter was removed and sterile dressing was applied. The patient tolerated the procedure well. IMPRESSION: Successful ultrasound-guided paracentesis. Signed by: Luiz Vuong MD on 08/12/2019 12:05 PM
[2019-08-12 14:44] LABS: BODY FLUID APPEARANCE SL.CLOUDY; BODY FLUID COLOR YELLOW; BODY FLUID TYPE PERITONEAL
[2019-08-12 14:45] LABS: RBC,BODY FLUID 210 cells/uL; WBC,BODY FLUID 102 cells/uL
[2019-08-12 18:51] LABS: LYMPHOCYTES,BODY FLUID 44 %; MONO/MACROPHG,BODY FLUID 5 %; OTHER CELLS,BODY FLUID 51 %
== END ==
LOC: US 10:22
PROVIDERS: ATTEND Internal Medicine Gastroenterology
DX: R18.8 Other ascites (principal)
CPT/HCPCS: 36415; 49083; 82040; 82150; 82945; 83615; 83690; 83986; 84157; 84478; 87070; 87116; 87205; 87206; 89051

== ENCOUNTER → 2019-08-15 | Outpatient (CLI) | payer MEDICARE ==
--- NOTE | 2019-08-15 10:36 | Diagnostic Imaging Report ---
PROCEDURE: Ultrasound-guided diagnostic and therapeutic paracentesis Procedural Personnel Attending physician(s): Al Reyes MD Pre-procedure diagnosis: Ascites, cirrhosis Post-procedure diagnosis: Same Indication: Ascites with pain or pressure symptoms Additional clinical history: None Complications: No immediate complications. IMPRESSION: Ultrasound-guided paracentesis with drainage of 1500 mL of serous fluid. Plan: Resume care by clinical team. PROCEDURE SUMMARY: - Limited abdominal ultrasound - Ultrasound-guided paracentesis - Additional procedure(s): None PROCEDURE DETAILS: Pre-procedure Consent: Informed consent for the procedure including risks, benefits and alternatives was obtained and time-out was performed prior to the procedure. Preparation: The site was prepared and draped using maximal sterile barrier technique including cutaneous antisepsis. Anesthesia/sedation Level of anesthesia/sedation: No sedation Anesthesia/sedation administered by: Not applicable Initial abdominal ultrasound Initial abdominal ultrasound was performed. Findings: Large ascites. A safe window for paracentesis was identified. Paracentesis Local anesthesia was administered. The peritoneal cavity was accessed and fluid return confirmed position. Ascites was drained. The catheter was then removed, and a sterile bandage was applied. Paracentesis access technique: Real-time ultrasound guidance Catheter placed: 5F Yueh Post-drainage ultrasound: Moderate ascites Additional Details Additional description of procedure: None Equipment details: None Specimens removed: Abdominal fluid Estimated blood loss (mL): Less than 10 Standardized report: [email or web address] Attestation Signer name: Al Reyes MD I attest that I was present for the entire procedure. I reviewed the stored images and agree with the report as written. Signed by: Al Reyes MD on 08/15/2019 10:32 AM
[2019-08-15 12:17] LABS: BODY FLUID APPEARANCE CLEAR; BODY FLUID TYPE PERITONEAL
[2019-08-15 12:19] LABS: RBC,BODY FLUID 157 cells/uL; WBC,BODY FLUID 166 cells/uL
[2019-08-15 12:21] LABS: LYMPHOCYTES,BODY FLUID 24 %; MONO/MACROPHG,BODY FLUID 69 %; NEUTROPHILS,BODY FLUID 7 %
== END ==
LOC: US 08:04
PROVIDERS: ATTEND Internal Medicine Gastroenterology
DX: R18.8 Other ascites (principal); K74.60 Unspecified cirrhosis of liver
CPT/HCPCS: 36415; 49083; 82040; 82150; 82945; 83615; 83690; 83986; 84157; 84478; 87070; 87116; 87205; 87206; 89051

== ENCOUNTER → 2019-08-21 | Outpatient (CLI) | payer MEDICARE ==
--- NOTE | 2019-08-21 12:31 | Diagnostic Imaging Report ---
Procedure: Ultrasound-guided paracentesis radial drill press operator: Ric Henry M.D. Pre-operative diagnosis: Ascites Post-operative diagnosis: Ascites Conscious Sedation: None. The patient's heart rate and pulse oximetry were continuously monitored by the IR nurse. Additional Medications: Lidocaine 1% for local anesthesia Estimated blood loss: Less than 1 cc. Specimen: 3100 cc of yellow fluid Implants: None TECHNIQUE/FINDINGS: Informed consent was obtained from the patient and documented in the medical record. The patient was placed in the supine position. Initial ultrasound demonstrated ascites. The right lower abdomen was prepped and draped in standard sterile fashion. 1% lidocaine was infiltrated into the skin and subcutaneous tissues for local anesthesia. Then under continuous sonographic guidance, a 5 Fr catheter was advanced into the peritoneal space. The catheter was connected to vacuum bottle with subsequent evacuation of 3100 cc of serous fluid. The catheter was removed and sterile dressing was applied. Sample was sent to the lab. The patient tolerated the procedure well. IMPRESSION: Successful ultrasound-guided paracentesis. Signed by: Ric Henry on 08/21/2019 12:28 PM
[2019-08-21 14:43] LABS: RBC,BODY FLUID 87 cells/uL; WBC,BODY FLUID 164 cells/uL
[2019-08-21 14:44] LABS: BODY FLUID APPEARANCE SL.CLOUDY; BODY FLUID COLOR YELLOW; BODY FLUID TYPE PERITONEAL
[2019-08-21 17:08] LABS: LYMPHOCYTES,BODY FLUID 14 %; MONO/MACROPHG,BODY FLUID 74 %; NEUTROPHILS,BODY FLUID 3 %
[2019-08-21 17:09] LABS: OTHER CELLS,BODY FLUID 9 %
== END ==
LOC: US 10:37
PROVIDERS: ATTEND Internal Medicine Gastroenterology
DX: R18.8 Other ascites (principal)
CPT/HCPCS: 36415; 49083; 82040; 82150; 82248; 82945; 83615; 83690; 83986; 84157; 84478; 87070; 87116; 87205; 87206; 89051; C1729

== ENCOUNTER → 2019-08-28 | Outpatient (CLI) | payer MEDICARE ==
--- NOTE | 2019-08-28 14:10 | Diagnostic Imaging Report ---
Procedure: Ultrasound-guided paracentesis electric pile driver operator: Garrett Carlos MD Pre-operative diagnosis: Ascites Post-operative diagnosis: Ascites Conscious Sedation: None. Additional Medications: Lidocaine 1% for local anesthesia Estimated blood loss: Less than 1 cc. Specimen: 5800 cc of clear yellow fluid Implants: None TECHNIQUE/FINDINGS: Informed consent was obtained from the patient and documented in the medical record. The patient was placed in the supine position. Initial ultrasound demonstrated ascites. The right lower abdomen was prepped and draped in standard sterile fashion. 1% lidocaine was infiltrated into the skin and subcutaneous tissues for local anesthesia. Then under continuous sonographic guidance, a 5 Fr catheter was advanced into the peritoneal space. The catheter was connected to vacuum bottle with subsequent evacuation of 5800 cc of serous fluid. The catheter was removed and sterile dressing was applied. The patient tolerated the procedure well. IMPRESSION: Successful ultrasound-guided paracentesis. Signed by: Dr. Garrett Carlos MD on 08/28/2019 2:07 PM
[2019-08-28 15:27] LABS: BODY FLUID APPEARANCE SL.CLOUDY; BODY FLUID COLOR YELLOW; BODY FLUID TYPE PERITONEAL
[2019-08-28 17:08] LABS: RBC,BODY FLUID 101 cells/uL; WBC,BODY FLUID 37 cells/uL
[2019-08-28 18:51] LABS: LYMPHOCYTES,BODY FLUID 28 %; MONO/MACROPHG,BODY FLUID 45 %
[2019-08-28 18:52] LABS: OTHER CELLS,BODY FLUID 27 %
== END ==
LOC: US 12:54
PROVIDERS: ATTEND Internal Medicine Gastroenterology
DX: R18.8 Other ascites (principal)
CPT/HCPCS: 36415; 49083; 82040; 82150; 82248; 82945; 83615; 83690; 83986; 84157; 84478; 87070; 87116; 87205; 87206; 89051; C1729

== ENCOUNTER → 2019-09-04 | Outpatient (CLI) | payer MEDICARE ==
--- NOTE | 2019-09-04 12:32 | Diagnostic Imaging Report ---
Procedure: Ultrasound-guided paracentesis trim and burr operator: Garrett Carlos MD Pre-operative diagnosis: Ascites Post-operative diagnosis: Ascites Conscious Sedation: None. The patient's heart rate and pulse oximetry were continuously monitored by the IR nurse. Additional Medications: Lidocaine 1% for local anesthesia Estimated blood loss: Less than 1 cc. Specimen: 6000 cc of clear yellow fluid Implants: None TECHNIQUE/FINDINGS: Informed consent was obtained from the patient and documented in the medical record. The patient was placed in the supine position. Initial ultrasound demonstrated ascites. The right lower abdomen was prepped and draped in standard sterile fashion. 1% lidocaine was infiltrated into the skin and subcutaneous tissues for local anesthesia. Then under continuous sonographic guidance, a 5 Fr catheter was advanced into the peritoneal space. The catheter was connected to vacuum bottle with subsequent evacuation of 6000 cc of serous fluid. The catheter was removed and sterile dressing was applied. Sample was sent to the lab. The patient tolerated the procedure well. IMPRESSION: Successful ultrasound-guided paracentesis. Signed by: Dr. Garrett Carlos MD on 09/04/2019 12:28 PM
[2019-09-04 17:47] LABS: BODY FLUID APPEARANCE SL.CLOUDY; BODY FLUID COLOR YELLOW; BODY FLUID TYPE PERITONEAL; RBC,BODY FLUID 33 cells/uL; WBC,BODY FLUID 40 cells/uL
[2019-09-04 18:17] LABS: LYMPHOCYTES,BODY FLUID 27 %; MONO/MACROPHG,BODY FLUID 58 %; NEUTROPHILS,BODY FLUID 1 %; OTHER CELLS,BODY FLUID 14 %
== END ==
LOC: US 10:27
PROVIDERS: ATTEND Internal Medicine Gastroenterology
DX: R18.8 Other ascites (principal)
CPT/HCPCS: 36415; 49083; 82040; 82150; 82248; 82945; 83615; 83690; 83986; 84157; 84478; 87070; 87116; 87205; 87206; 88112; 88305; 89051

== ENCOUNTER → 2019-09-08 | Outpatient (CLI) | payer MEDICARE ==
[~2019-09-08] MED LIST changes: +ALBUMIN 25% 12.5GM 50ML 150 ML IV ONE; -ALBUMIN 25% 12.5GM 50ML 200 ML IV ONE; +ALBUMIN 25% 12.5GM 50ML 50 ML IV ONE
[2019-09-08 09:57] LABS: HEMATOCRIT 33.4 % (38.2-49.6)
[2019-09-08 10:08] LABS: INR 0.95; PROTHROMBIN TIME 13.2 seconds (11.9-14.5)
[2019-09-08 10:09] LABS: PARTIAL THROMBOPLASTIN TIME 34.8 seconds (23.8-35.5)
[2019-09-08 10:14] LABS: BLOOD UREA NITROGEN 16 mg/dL (7-26); BUN/CREATININE RATIO 18 (6-25); CREATININE, SERUM 0.89 mg/dL (0.72-1.25); EST GLOMERULAR FILTRATION RATE > 60 ML/MIN (60-)
--- NOTE | 2019-09-08 11:30 | Diagnostic Imaging Report ---
PROCEDURE: Ultrasound-guided diagnostic and therapeutic paracentesis Procedural Personnel Attending physician(s): Al Reyes MD Pre-procedure diagnosis: Ascites, cirrhosis Post-procedure diagnosis: Same Indication: Ascites with pain or pressure symptoms Additional clinical history: None Complications: No immediate complications. IMPRESSION: Ultrasound-guided paracentesis with drainage of 6600 mL of serous fluid. Plan: Resume care by clinical team. PROCEDURE SUMMARY: - Limited abdominal ultrasound - Ultrasound-guided paracentesis - Additional procedure(s): None PROCEDURE DETAILS: Pre-procedure Consent: Informed consent for the procedure including risks, benefits and alternatives was obtained and time-out was performed prior to the procedure. Preparation: The site was prepared and draped using maximal sterile barrier technique including cutaneous antisepsis. Anesthesia/sedation Level of anesthesia/sedation: No sedation Anesthesia/sedation administered by: Not applicable Initial abdominal ultrasound Initial abdominal ultrasound was performed. Findings: Large ascites. A safe window for paracentesis was identified. Paracentesis Local anesthesia was administered. The peritoneal cavity was accessed and fluid return confirmed position. Ascites was drained. The catheter was then removed, and a sterile bandage was applied. Paracentesis access technique: Real-time ultrasound guidance Catheter placed: 5F Yueh Post-drainage ultrasound: Moderate ascites Additional Details Additional description of procedure: None Equipment details: None Specimens removed: Abdominal fluid Estimated blood loss (mL): Less than 10 Standardized report: [email or web address] Attestation Signer name: Al Reyes MD I attest that I was present for the entire procedure. I reviewed the stored images and agree with the report as written. Signed by: Al Reyes MD on 09/08/2019 11:27 AM
[2019-09-08 12:51] LABS: BODY FLUID APPEARANCE SL.CLOUDY; BODY FLUID COLOR YELLOW; BODY FLUID TYPE PERITONEAL
[2019-09-08 12:53] LABS: RBC,BODY FLUID 73 cells/uL; WBC,BODY FLUID 80 cells/uL
[2019-09-08 13:18] LABS: LYMPHOCYTES,BODY FLUID 66 %; MONO/MACROPHG,BODY FLUID 23 %; NEUTROPHILS,BODY FLUID 11 %
== END ==
LOC: US 09:35
PROVIDERS: ATTEND Internal Medicine Gastroenterology
DX: R18.8 Other ascites (principal); K74.60 Unspecified cirrhosis of liver
CPT/HCPCS: 36415; 49083; 82040; 82150; 82565; 82945; 83615; 83690; 83986; 84157; 84478; 84520; 85014; 85018; 85049; 85610; 85730; 87070; 87116; 87205; 87206; 89051

== ENCOUNTER → 2019-09-11 | Outpatient (CLI) | payer MEDICARE ==
[~2019-09-11] MED LIST changes: -ALBUMIN 25% 12.5GM 50ML 150 ML IV ONE; +ALBUMIN 25% 12.5GM 50ML 200 ML IV ONE; -ALBUMIN 25% 12.5GM 50ML 50 ML IV ONE
--- NOTE | 2019-09-11 12:08 | Diagnostic Imaging Report ---
Procedure: Ultrasound-guided paracentesis boxer operator: Garrett Carlos MD Pre-operative diagnosis: Ascites Post-operative diagnosis: Ascites Conscious Sedation: None. The patient's heart rate and pulse oximetry were continuously monitored by the IR nurse. Additional Medications: Lidocaine 1% for local anesthesia Estimated blood loss: Less than 1 cc. Specimen: 5300 cc of clear fluid Implants: None TECHNIQUE/FINDINGS: Informed consent was obtained from the patient and documented in the medical record. The patient was placed in the supine position. Initial ultrasound demonstrated ascites. The right lower abdomen was prepped and draped in standard sterile fashion. 1% lidocaine was infiltrated into the skin and subcutaneous tissues for local anesthesia. Then under continuous sonographic guidance, a 5 Fr catheter was advanced into the peritoneal space. The catheter was connected to vacuum bottle with subsequent evacuation of 5300 cc of serous fluid. The catheter was removed and sterile dressing was applied. The patient tolerated the procedure well. IMPRESSION: Successful ultrasound-guided paracentesis. Signed by: Dr. Garrett Carlos MD on 09/11/2019 12:05 PM
[2019-09-11 14:27] LABS: LYMPHOCYTES,BODY FLUID 7 %; MONO/MACROPHG,BODY FLUID 5 %; NEUTROPHILS,BODY FLUID 2 %; OTHER CELLS,BODY FLUID 86 %
[2019-09-11 14:48] LABS: BODY FLUID COLOR YELLOW; BODY FLUID TYPE PERITONEAL
[2019-09-11 14:49] LABS: BODY FLUID APPEARANCE SL.CLOUDY
[2019-09-11 14:51] LABS: RBC,BODY FLUID 55 cells/uL; WBC,BODY FLUID 100 cells/uL
== END ==
LOC: US 10:27
PROVIDERS: ATTEND Internal Medicine Gastroenterology
DX: R18.8 Other ascites (principal)
CPT/HCPCS: 36415; 49083; 82040; 82150; 82248; 82945; 83615; 83690; 83986; 84157; 84478; 87070; 87116; 87205; 87206; 89051; C1729

== ENCOUNTER → 2019-09-15 | Outpatient (CLI) | payer MEDICARE ==
--- NOTE | 2019-09-15 10:58 | Diagnostic Imaging Report ---
PROCEDURE: Ultrasound-guided diagnostic and therapeutic paracentesis Procedural Personnel Attending physician(s): Al Reyes MD Pre-procedure diagnosis: Ascites, cirrhosis Post-procedure diagnosis: Same Indication: Ascites with pain or pressure symptoms Additional clinical history: None Complications: No immediate complications. IMPRESSION: Ultrasound-guided paracentesis with drainage of 4100 mL of serous fluid. Plan: Resume care by clinical team. PROCEDURE SUMMARY: - Limited abdominal ultrasound - Ultrasound-guided paracentesis - Additional procedure(s): None PROCEDURE DETAILS: Pre-procedure Consent: Informed consent for the procedure including risks, benefits and alternatives was obtained and time-out was performed prior to the procedure. Preparation: The site was prepared and draped using maximal sterile barrier technique including cutaneous antisepsis. Anesthesia/sedation Level of anesthesia/sedation: No sedation Anesthesia/sedation administered by: Not applicable Initial abdominal ultrasound Initial abdominal ultrasound was performed. Findings: Large ascites. A safe window for paracentesis was identified. Paracentesis Local anesthesia was administered. The peritoneal cavity was accessed and fluid return confirmed position. Ascites was drained. The catheter was then removed, and a sterile bandage was applied. Paracentesis access technique: Real-time ultrasound guidance Catheter placed: 5F Yueh Post-drainage ultrasound: Moderate ascites Additional Details Additional description of procedure: None Equipment details: None Specimens removed: Abdominal fluid Estimated blood loss (mL): Less than 10 Standardized report: [email or web address] Attestation Signer name: Al Reyes MD I attest that I was present for the entire procedure. I reviewed the stored images and agree with the report as written. Signed by: Al Reyes MD on 09/15/2019 10:55 AM
[2019-09-15 12:58] LABS: BODY FLUID APPEARANCE CLEAR; BODY FLUID COLOR YELLOW; BODY FLUID TYPE PERITONEAL; RBC,BODY FLUID 110 cells/uL; WBC,BODY FLUID 330 cells/uL
[2019-09-15 13:30] LABS: LYMPHOCYTES,BODY FLUID 50 %; MONO/MACROPHG,BODY FLUID 20 %; NEUTROPHILS,BODY FLUID 2 %
[2019-09-15 13:31] LABS: OTHER CELLS,BODY FLUID 28 %
== END ==
LOC: US 08:49
PROVIDERS: ATTEND Internal Medicine Gastroenterology
DX: R18.8 Other ascites (principal); K74.60 Unspecified cirrhosis of liver
CPT/HCPCS: 36415; 49083; 82040; 82150; 82248; 82945; 83615; 83690; 83986; 84157; 84478; 87070; 87116; 87205; 87206; 89051; C1729

== ENCOUNTER → 2019-09-18 | Outpatient (CLI) | payer MEDICARE ==
--- NOTE | 2019-09-18 12:13 | Diagnostic Imaging Report ---
PROCEDURE: Ultrasound-guided diagnostic and therapeutic paracentesis Procedural Personnel Attending physician(s): Al Reyes MD Pre-procedure diagnosis: Ascites, cirrhosis Post-procedure diagnosis: Same Indication: Ascites with pain or pressure symptoms Additional clinical history: None Complications: No immediate complications. IMPRESSION: Ultrasound-guided paracentesis with drainage of 3600 mL of serous fluid. Plan: Resume care by clinical team. PROCEDURE SUMMARY: - Limited abdominal ultrasound - Ultrasound-guided paracentesis - Additional procedure(s): None PROCEDURE DETAILS: Pre-procedure Consent: Informed consent for the procedure including risks, benefits and alternatives was obtained and time-out was performed prior to the procedure. Preparation: The site was prepared and draped using maximal sterile barrier technique including cutaneous antisepsis. Anesthesia/sedation Level of anesthesia/sedation: No sedation Anesthesia/sedation administered by: Not applicable Initial abdominal ultrasound Initial abdominal ultrasound was performed. Findings: Large ascites. A safe window for paracentesis was identified. Paracentesis Local anesthesia was administered. The peritoneal cavity was accessed and fluid return confirmed position. Ascites was drained. The catheter was then removed, and a sterile bandage was applied. Paracentesis access technique: Real-time ultrasound guidance Catheter placed: 5F Yueh Post-drainage ultrasound: Moderate ascites Additional Details Additional description of procedure: None Equipment details: None Specimens removed: Abdominal fluid Estimated blood loss (mL): Less than 10 Standardized report: [email or web address] Attestation Signer name: Al Reyes MD I attest that I was present for the entire procedure. I reviewed the stored images and agree with the report as written. Signed by: Al Reyes MD on 09/18/2019 12:10 PM
[2019-09-18 13:47] LABS: BODY FLUID APPEARANCE SL.CLOUDY; BODY FLUID COLOR YELLOW; BODY FLUID TYPE PERITONEAL
[2019-09-18 13:52] LABS: RBC,BODY FLUID 110 cells/uL; WBC,BODY FLUID 128 cells/uL
[2019-09-18 15:32] LABS: LYMPHOCYTES,BODY FLUID 37 %; MONO/MACROPHG,BODY FLUID 11 %; NEUTROPHILS,BODY FLUID 4 %; OTHER CELLS,BODY FLUID 48 %
== END ==
LOC: US 10:08
PROVIDERS: ATTEND Internal Medicine Gastroenterology
DX: R18.8 Other ascites (principal); K74.60 Unspecified cirrhosis of liver
CPT/HCPCS: 36415; 49083; 82040; 82150; 82248; 82945; 83615; 83690; 83986; 84157; 84478; 87070; 87116; 87205; 87206; 89051

== ENCOUNTER → 2019-09-22 | Outpatient (CLI) | payer MEDICARE ==
--- NOTE | 2019-09-22 11:55 | Diagnostic Imaging Report ---
PROCEDURE: Ultrasound-guided diagnostic and therapeutic paracentesis Procedural Personnel Attending physician(s): Al Reyes MD Pre-procedure diagnosis: Ascites, cirrhosis Post-procedure diagnosis: Same Indication: Ascites with pain or pressure symptoms Additional clinical history: None Complications: No immediate complications. IMPRESSION: Ultrasound-guided paracentesis with drainage of 2600 mL of serous fluid. Plan: Resume care by clinical team. PROCEDURE SUMMARY: - Limited abdominal ultrasound - Ultrasound-guided paracentesis - Additional procedure(s): None PROCEDURE DETAILS: Pre-procedure Consent: Informed consent for the procedure including risks, benefits and alternatives was obtained and time-out was performed prior to the procedure. Preparation: The site was prepared and draped using maximal sterile barrier technique including cutaneous antisepsis. Anesthesia/sedation Level of anesthesia/sedation: No sedation Anesthesia/sedation administered by: Not applicable Initial abdominal ultrasound Initial abdominal ultrasound was performed. Findings: Large ascites. A safe window for paracentesis was identified. Paracentesis Local anesthesia was administered. The peritoneal cavity was accessed and fluid return confirmed position. Ascites was drained. The catheter was then removed, and a sterile bandage was applied. Paracentesis access technique: Real-time ultrasound guidance Catheter placed: 5F Yueh Post-drainage ultrasound: Moderate ascites Additional Details Additional description of procedure: None Equipment details: None Specimens removed: Abdominal fluid Estimated blood loss (mL): Less than 10 Standardized report: [email or web address] Attestation Signer name: Al Reyes MD I attest that I was present for the entire procedure. I reviewed the stored images and agree with the report as written. Signed by: Al Reyes MD on 09/22/2019 11:52 AM
== END ==
LOC: US 10:24
PROVIDERS: ATTEND Internal Medicine Gastroenterology
DX: R18.8 Other ascites (principal); K74.60 Unspecified cirrhosis of liver
CPT/HCPCS: 36415; 49083

== ENCOUNTER → 2019-09-25 | Outpatient (CLI) | payer MEDICARE ==
--- NOTE | 2019-09-25 14:36 | Diagnostic Imaging Report ---
US Guided Paracentesis. History: Recurrent ascites. Request for paracentesis. Music Video Director: Zoltan Mcallister MD. Hog Cooler: None. Modality: Ultrasonography Sedation: None. Anesthesia: Lidocaine local infiltration. Estimated blood loss: < 5 cc. Technique: Informed written consent was obtained. Discussion of risks, benefits, and alternatives were made with the patient. The patient expressed understanding and agreed to proceed. A universal timeout was performed prior to starting the procedure. Maximal sterile precautions were utilized. The procedure room personnel used personal protective equipment. The operators additionally used sterile surgical gloves. A preliminary ultrasonography was performed to assess the target and determine a safe access site. It showed ascites. Pertinent ultrasound images were stored to the PACS for documentation. The access site was selected and sterilely prepped and draped. Local anesthesia was administered. A dermatotomy was performed. A catheter over the needle system was advanced into the peritoneal cavity. Straw colored fluid was aspirated and the plastic catheter advanced into the peritoneum. The catheter was then connected to a fluid recovery system. At the end of the procedure, the catheter was withdrawn and an aseptic dressing applied. The patient tolerated the procedure well. After uneventful recovery recovery, the patient was discharged from the department in stable condition. The total amount of fluid recovered is given below. Complications: None immediate. Specimen: Sent to the lab. Impression: Successful ultrasound-guided paracentesis using a right lower quadrant access with recovery of 3.2 liters of fluid as described above. Thank you for the opportunity to assist in the care of your patient. Signed by: Zoltan Mcallister MD on 09/25/2019 2:33 PM
== END ==
LOC: US 12:30
PROVIDERS: ATTEND Internal Medicine Gastroenterology
DX: R18.8 Other ascites (principal)
CPT/HCPCS: 49083; C1729

== ENCOUNTER → 2019-09-29 | Outpatient (CLI) | payer MEDICARE ==
--- NOTE | 2019-09-29 11:51 | Diagnostic Imaging Report ---
PROCEDURE: Ultrasound-guided diagnostic and therapeutic paracentesis Procedural Personnel Attending physician(s): Al Reyes MD Pre-procedure diagnosis: Ascites, cirrhosis Post-procedure diagnosis: Same Indication: Ascites with pain or pressure symptoms Additional clinical history: None Complications: No immediate complications. IMPRESSION: Ultrasound-guided paracentesis with drainage of 2900 mL of serous fluid. Plan: Resume care by clinical team. PROCEDURE SUMMARY: - Limited abdominal ultrasound - Ultrasound-guided paracentesis - Additional procedure(s): None PROCEDURE DETAILS: Pre-procedure Consent: Informed consent for the procedure including risks, benefits and alternatives was obtained and time-out was performed prior to the procedure. Preparation: The site was prepared and draped using maximal sterile barrier technique including cutaneous antisepsis. Anesthesia/sedation Level of anesthesia/sedation: No sedation Anesthesia/sedation administered by: Not applicable Initial abdominal ultrasound Initial abdominal ultrasound was performed. Findings: Large ascites. A safe window for paracentesis was identified. Paracentesis Local anesthesia was administered. The peritoneal cavity was accessed and fluid return confirmed position. Ascites was drained. The catheter was then removed, and a sterile bandage was applied. Paracentesis access technique: Real-time ultrasound guidance Catheter placed: 5F Yueh Post-drainage ultrasound: Moderate ascites Additional Details Additional description of procedure: None Equipment details: None Specimens removed: Abdominal fluid Estimated blood loss (mL): Less than 10 Standardized report: [email or web address] Attestation Signer name: Al Reyes MD I attest that I was present for the entire procedure. I reviewed the stored images and agree with the report as written. Signed by: Al Reyes MD on 09/29/2019 11:48 AM
== END ==
LOC: US 10:25
PROVIDERS: ATTEND Internal Medicine Gastroenterology
DX: R18.8 Other ascites (principal); K74.60 Unspecified cirrhosis of liver
CPT/HCPCS: 49083; C1729

== ENCOUNTER → 2019-10-02 | Outpatient (CLI) | payer MEDICARE ==
--- NOTE | 2019-10-02 12:13 | Diagnostic Imaging Report ---
PROCEDURE: Ultrasound-guided diagnostic and therapeutic paracentesis Procedural Personnel Attending physician(s): Al Reyes MD Pre-procedure diagnosis: Ascites, cirrhosis Post-procedure diagnosis: Same Indication: Ascites with pain or pressure symptoms Additional clinical history: None Complications: No immediate complications. IMPRESSION: Ultrasound-guided paracentesis with drainage of 3900 mL of serous fluid. Plan: Resume care by clinical team. PROCEDURE SUMMARY: - Limited abdominal ultrasound - Ultrasound-guided paracentesis - Additional procedure(s): None PROCEDURE DETAILS: Pre-procedure Consent: Informed consent for the procedure including risks, benefits and alternatives was obtained and time-out was performed prior to the procedure. Preparation: The site was prepared and draped using maximal sterile barrier technique including cutaneous antisepsis. Anesthesia/sedation Level of anesthesia/sedation: No sedation Anesthesia/sedation administered by: Not applicable Initial abdominal ultrasound Initial abdominal ultrasound was performed. Findings: Large ascites. A safe window for paracentesis was identified. Paracentesis Local anesthesia was administered. The peritoneal cavity was accessed and fluid return confirmed position. Ascites was drained. The catheter was then removed, and a sterile bandage was applied. Paracentesis access technique: Real-time ultrasound guidance Catheter placed: 5F Yueh Post-drainage ultrasound: Moderate ascites Additional Details Additional description of procedure: None Equipment details: None Specimens removed: Abdominal fluid Estimated blood loss (mL): Less than 10 Standardized report: [email or web address] Attestation Signer name: Al Reyes MD I attest that I was present for the entire procedure. I reviewed the stored images and agree with the report as written. Signed by: Al Reyes MD on 10/02/2019 12:09 PM
== END ==
LOC: US 10:24
PROVIDERS: ATTEND Internal Medicine Gastroenterology
DX: R18.8 Other ascites (principal); K74.60 Unspecified cirrhosis of liver
CPT/HCPCS: 49083

== ENCOUNTER → 2019-10-06 | Outpatient (CLI) | payer MEDICARE ==
--- NOTE | 2019-10-06 12:13 | Diagnostic Imaging Report ---
Procedure: Ultrasound-guided paracentesis reeling operator: Garrett Carlos MD Pre-operative diagnosis: Ascites Post-operative diagnosis: Ascites Conscious Sedation: None. The patient's heart rate and pulse oximetry were continuously monitored by the IR nurse. Additional Medications: Lidocaine 1% for local anesthesia Estimated blood loss: Less than 1 cc. Specimen: 4400 cc of emiliano-colored fluid Implants: None TECHNIQUE/FINDINGS: Informed consent was obtained from the patient and documented in the medical record. The patient was placed in the supine position. Initial ultrasound demonstrated ascites. The right lower abdomen was prepped and draped in standard sterile fashion. 1% lidocaine was infiltrated into the skin and subcutaneous tissues for local anesthesia. Then under continuous sonographic guidance, a 5 Fr catheter was advanced into the peritoneal space. The catheter was connected to vacuum bottle with subsequent evacuation of 4400 cc of serous fluid. The catheter was removed and sterile dressing was applied. Sample was sent to the lab. The patient tolerated the procedure well. IMPRESSION: Successful ultrasound-guided paracentesis. Signed by: Dr. Garrett Carlos MD on 10/06/2019 12:09 PM
== END ==
LOC: US 10:37
PROVIDERS: ATTEND Internal Medicine Gastroenterology
DX: R18.8 Other ascites (principal)
CPT/HCPCS: 49083; 87635

== ENCOUNTER → 2019-10-09 | Outpatient (CLI) | payer MEDICARE, OTHER ==
[2019-10-09 10:59] LABS: HEMOGLOBIN 7.8 g/dL (14.0-18.0)
[2019-10-09 11:20] LABS: INR 1.1; PROTHROMBIN TIME 14.9 seconds (11.9-14.5)
[2019-10-09 11:21] LABS: PARTIAL THROMBOPLASTIN TIME 32.8 seconds (23.8-35.5)
--- NOTE | 2019-10-09 12:45 | Diagnostic Imaging Report ---
PROCEDURE: Ultrasound-guided diagnostic and therapeutic paracentesis Procedural Personnel Attending physician(s): Al Reyes MD Pre-procedure diagnosis: Ascites, cirrhosis Post-procedure diagnosis: Same Indication: Ascites with pain or pressure symptoms Additional clinical history: None Complications: No immediate complications. IMPRESSION: Ultrasound-guided paracentesis with drainage of 4100 mL of serous fluid. Plan: Resume care by clinical team. PROCEDURE SUMMARY: - Limited abdominal ultrasound - Ultrasound-guided paracentesis - Additional procedure(s): None PROCEDURE DETAILS: Pre-procedure Consent: Informed consent for the procedure including risks, benefits and alternatives was obtained and time-out was performed prior to the procedure. Preparation: The site was prepared and draped using maximal sterile barrier technique including cutaneous antisepsis. Anesthesia/sedation Level of anesthesia/sedation: No sedation Anesthesia/sedation administered by: Not applicable Initial abdominal ultrasound Initial abdominal ultrasound was performed. Findings: Large ascites. A safe window for paracentesis was identified. Paracentesis Local anesthesia was administered. The peritoneal cavity was accessed and fluid return confirmed position. Ascites was drained. The catheter was then removed, and a sterile bandage was applied. Paracentesis access technique: Real-time ultrasound guidance Catheter placed: 5F Yueh Post-drainage ultrasound: Moderate ascites Additional Details Additional description of procedure: None Equipment details: None Specimens removed: Abdominal fluid Estimated blood loss (mL): Less than 10 Standardized report: [email or web address] Attestation Signer name: Al Reyes MD I attest that I was present for the entire procedure. I reviewed the stored images and agree with the report as written. Signed by: Al Reyes MD on 10/09/2019 12:41 PM
== END ==
LOC: US 10:24
PROVIDERS: ATTEND Internal Medicine Gastroenterology
DX: R18.8 Other ascites (principal); K74.60 Unspecified cirrhosis of liver
CPT/HCPCS: 36415; 49083; 85014; 85049; 85610; 85730

== ENCOUNTER → 2019-10-13 | Outpatient (CLI) | payer MEDICARE ==
--- NOTE | 2019-10-13 13:15 | Diagnostic Imaging Report ---
Procedure: Ultrasound-guided paracentesis straight tooth gear generator operator: Ric Henry M.D. Pre-operative diagnosis: Ascites Post-operative diagnosis: Ascites Conscious Sedation: None. The patient's heart rate and pulse oximetry were continuously monitored by the IR nurse. Additional Medications: Lidocaine 1% for local anesthesia Estimated blood loss: Less than 1 cc. Specimen: 3700 cc of clear yellow fluid Implants: None TECHNIQUE/FINDINGS: Informed consent was obtained from the patient and documented in the medical record. The patient was placed in the supine position. Initial ultrasound demonstrated ascites. The right lower abdomen was prepped and draped in standard sterile fashion. 1% lidocaine was infiltrated into the skin and subcutaneous tissues for local anesthesia. Then under continuous sonographic guidance, a 5 Fr catheter was advanced into the peritoneal space. The catheter was connected to vacuum bottle with subsequent evacuation of 3700 cc of serous fluid. The catheter was removed and sterile dressing was applied. Sample was sent to the lab. The patient tolerated the procedure well. IMPRESSION: Successful ultrasound-guided paracentesis. Signed by: Ric Henry on 10/13/2019 1:12 PM
== END ==
LOC: US 10:44
PROVIDERS: ATTEND Internal Medicine Gastroenterology
DX: R18.8 Other ascites (principal); K74.60 Unspecified cirrhosis of liver
CPT/HCPCS: 49083

== ENCOUNTER → 2019-10-16 | Outpatient (CLI) | payer MEDICARE ==
--- NOTE | 2019-10-16 13:15 | Diagnostic Imaging Report ---
US Guided Paracentesis. History: Recurrent ascites. Request for paracentesis. Principal Librarian: Zoltan Mcallister MD. Squeegee Tender: None. Modality: Ultrasonography Sedation: None. Anesthesia: Lidocaine local infiltration. Estimated blood loss: < 5 cc. Technique: Informed written consent was obtained. Discussion of risks, benefits, and alternatives were made with the patient. The patient expressed understanding and agreed to proceed. A universal timeout was performed prior to starting the procedure. Maximal sterile precautions were utilized. The procedure room personnel used personal protective equipment. The operators additionally used sterile surgical gloves. A preliminary ultrasonography was performed to assess the target and determine a safe access site. It showed ascites. Pertinent ultrasound images were stored to the PACS for documentation. The access site was selected and sterilely prepped and draped. Local anesthesia was administered. A dermatotomy was performed. A catheter over the needle system was advanced into the peritoneal cavity. Straw colored fluid was aspirated and the plastic catheter advanced into the peritoneum. The catheter was then connected to a fluid recovery system. At the end of the procedure, the catheter was withdrawn and an aseptic dressing applied. The patient tolerated the procedure well. After uneventful recovery recovery, the patient was discharged from the department in stable condition. The total amount of fluid recovered is given below. Complications: None immediate. Specimen: Sent to the lab. Impression: Successful ultrasound-guided paracentesis using a right lower quadrant access with recovery of 3.6 liters of fluid as described above. Thank you for the opportunity to assist in the care of your patient. Signed by: Zoltan Mcallister MD on 10/16/2019 1:12 PM
== END ==
LOC: US 10:54
PROVIDERS: ATTEND Internal Medicine Gastroenterology
DX: R18.8 Other ascites (principal); K74.60 Unspecified cirrhosis of liver
CPT/HCPCS: 49083

== ENCOUNTER → 2019-10-21 | Outpatient (CLI) | payer MEDICARE ==
--- NOTE | 2019-10-21 13:02 | Diagnostic Imaging Report ---
US Guided Paracentesis. History: Recurrent ascites. Request for paracentesis. Credit Risk Specialist: Zoltan Mcallister MD. Board Layer: None. Modality: Ultrasonography Sedation: None. Anesthesia: Lidocaine local infiltration. Estimated blood loss: < 5 cc. Technique: Informed written consent was obtained. Discussion of risks, benefits, and alternatives were made with the patient. The patient expressed understanding and agreed to proceed. A universal timeout was performed prior to starting the procedure. Maximal sterile precautions were utilized. The procedure room personnel used personal protective equipment. The operators additionally used sterile surgical gloves. A preliminary ultrasonography was performed to assess the target and determine a safe access site. It showed ascites. Pertinent ultrasound images were stored to the PACS for documentation. The access site was selected and sterilely prepped and draped. Local anesthesia was administered. A dermatotomy was performed. A catheter over the needle system was advanced into the peritoneal cavity. Straw colored fluid was aspirated and the plastic catheter advanced into the peritoneum. The catheter was then connected to a fluid recovery system. At the end of the procedure, the catheter was withdrawn and an aseptic dressing applied. The patient tolerated the procedure well. After uneventful recovery recovery, the patient was discharged from the department in stable condition. The total amount of fluid recovered is given below. Complications: None immediate. Specimen: None. Impression: Successful ultrasound-guided paracentesis using a right upper quadrant access with recovery of 6 liters of fluid as described above. The patient has diffuse redness and itching of his lower abdominal wall with some reddish macular papular areas suggestive of fungus infection. The patient has been advised to contact his PMD for evaluation and management. Because of the presence of this rash, right upper quadrant access relatively free of the rash was used for paracentesis. Thank you for the opportunity to assist in the care of your patient. Signed by: Zoltan Mcallister MD on 10/21/2019 12:59 PM
== END ==
LOC: US 10:28
PROVIDERS: ATTEND Internal Medicine Gastroenterology
DX: R18.8 Other ascites (principal); K74.60 Unspecified cirrhosis of liver
CPT/HCPCS: 49083

== ENCOUNTER → 2019-10-24 | Outpatient (CLI) | payer MEDICARE ==
--- NOTE | 2019-10-24 12:47 | Diagnostic Imaging Report ---
PROCEDURE: Ultrasound-guided diagnostic and therapeutic paracentesis Procedural Personnel Attending physician(s): Al Reyes MD Pre-procedure diagnosis: Ascites, cirrhosis Post-procedure diagnosis: Same Indication: Ascites with pain or pressure symptoms Additional clinical history: None Complications: No immediate complications. IMPRESSION: Ultrasound-guided paracentesis with drainage of 3600 mL of serous fluid. Plan: Resume care by clinical team. PROCEDURE SUMMARY: - Limited abdominal ultrasound - Ultrasound-guided paracentesis - Additional procedure(s): None PROCEDURE DETAILS: Pre-procedure Consent: Informed consent for the procedure including risks, benefits and alternatives was obtained and time-out was performed prior to the procedure. Preparation: The site was prepared and draped using maximal sterile barrier technique including cutaneous antisepsis. Anesthesia/sedation Level of anesthesia/sedation: No sedation Anesthesia/sedation administered by: Not applicable Initial abdominal ultrasound Initial abdominal ultrasound was performed. Findings: Large ascites. A safe window for paracentesis was identified. Paracentesis Local anesthesia was administered. The peritoneal cavity was accessed and fluid return confirmed position. Ascites was drained. The catheter was then removed, and a sterile bandage was applied. Paracentesis access technique: Real-time ultrasound guidance Catheter placed: 5F Yueh Post-drainage ultrasound: Moderate ascites Additional Details Additional description of procedure: None Equipment details: None Specimens removed: Abdominal fluid Estimated blood loss (mL): Less than 10 Standardized report: [email or web address] Attestation Signer name: Al Reyes MD I attest that I was present for the entire procedure. I reviewed the stored images and agree with the report as written. Signed by: Al Reyes MD on 10/24/2019 12:43 PM
== END ==
LOC: US 10:27
PROVIDERS: ATTEND Internal Medicine Gastroenterology
DX: R18.8 Other ascites (principal); K74.60 Unspecified cirrhosis of liver
CPT/HCPCS: 49083

== ENCOUNTER → 2019-10-28 | Outpatient (CLI) | payer MEDICARE ==
--- NOTE | 2019-10-28 12:38 | Diagnostic Imaging Report ---
PROCEDURE: Ultrasound-guided diagnostic and therapeutic paracentesis Procedural Personnel Attending physician(s): Al Reyes MD Pre-procedure diagnosis: Ascites, cirrhosis Post-procedure diagnosis: Same Indication: Ascites with pain or pressure symptoms Additional clinical history: None Complications: No immediate complications. IMPRESSION: Ultrasound-guided paracentesis with drainage of 4100 mL of serous fluid. Plan: Resume care by clinical team. PROCEDURE SUMMARY: - Limited abdominal ultrasound - Ultrasound-guided paracentesis - Additional procedure(s): None PROCEDURE DETAILS: Pre-procedure Consent: Informed consent for the procedure including risks, benefits and alternatives was obtained and time-out was performed prior to the procedure. Preparation: The site was prepared and draped using maximal sterile barrier technique including cutaneous antisepsis. Anesthesia/sedation Level of anesthesia/sedation: No sedation Anesthesia/sedation administered by: Not applicable Initial abdominal ultrasound Initial abdominal ultrasound was performed. Findings: Large ascites. A safe window for paracentesis was identified. Paracentesis Local anesthesia was administered. The peritoneal cavity was accessed and fluid return confirmed position. Ascites was drained. The catheter was then removed, and a sterile bandage was applied. Paracentesis access technique: Real-time ultrasound guidance Catheter placed: 5F Yueh Post-drainage ultrasound: Moderate ascites Additional Details Additional description of procedure: None Equipment details: None Specimens removed: Abdominal fluid Estimated blood loss (mL): Less than 10 Standardized report: [email or web address] Attestation Signer name: Al Reyes MD I attest that I was present for the entire procedure. I reviewed the stored images and agree with the report as written. Signed by: Al Reyes MD on 10/28/2019 12:35 PM
== END ==
LOC: US 09:39
PROVIDERS: ATTEND Internal Medicine Gastroenterology
DX: R18.8 Other ascites (principal); K74.60 Unspecified cirrhosis of liver
CPT/HCPCS: 49083; C1729

== ENCOUNTER → 2019-10-31 | Outpatient (CLI) | payer MEDICARE ==
--- NOTE | 2019-10-31 12:35 | Diagnostic Imaging Report ---
US Guided Paracentesis. History: Recurrent ascites. Request for paracentesis. Dealer Sales Manager: Zoltan Mcallister MD. Reel Worker: None. Modality: Ultrasonography Sedation: None. Anesthesia: Lidocaine local infiltration. Estimated blood loss: < 5 cc. Technique: Informed written consent was obtained. Discussion of risks, benefits, and alternatives were made with the patient. The patient expressed understanding and agreed to proceed. A universal timeout was performed prior to starting the procedure. Maximal sterile precautions were utilized. The procedure room personnel used personal protective equipment. The operators additionally used sterile surgical gloves. A preliminary ultrasonography was performed to assess the target and determine a safe access site. It showed ascites. Pertinent ultrasound images were stored to the PACS for documentation. The access site was selected and sterilely prepped and draped. Local anesthesia was administered. A dermatotomy was performed. A catheter over the needle system was advanced into the peritoneal cavity. Straw colored fluid was aspirated and the plastic catheter advanced into the peritoneum. The catheter was then connected to a fluid recovery system. At the end of the procedure, the catheter was withdrawn and an aseptic dressing applied. The patient tolerated the procedure well. After uneventful recovery recovery, the patient was discharged from the department in stable condition. The total amount of fluid recovered is given below. Complications: None immediate. Specimen: Sent to the lab. Impression: Successful ultrasound-guided paracentesis using a right lower quadrant access with recovery of 4.3 liters of fluid as described above. Thank you for the opportunity to assist in the care of your patient. Signed by: Zoltan Mcallister MD on 10/31/2019 12:32 PM
== END ==
LOC: US 10:54
PROVIDERS: ATTEND Internal Medicine Gastroenterology
DX: R18.8 Other ascites (principal); K74.60 Unspecified cirrhosis of liver
CPT/HCPCS: 49083; C1729

== ENCOUNTER → 2019-11-04 | Outpatient (CLI) | payer MEDICARE ==
--- NOTE | 2019-11-04 14:22 | Diagnostic Imaging Report ---
Procedure: Ultrasound-guided paracentesis refiner operator: Ric Henry M.D. Pre-operative diagnosis: Ascites Post-operative diagnosis: Ascites Conscious Sedation: None. The patient's heart rate and pulse oximetry were continuously monitored by the IR nurse. Additional Medications: Lidocaine 1% for local anesthesia Estimated blood loss: Less than 1 cc. Specimen: 3800 cc of clear yellow fluid Implants: None TECHNIQUE/FINDINGS: Informed consent was obtained from the patient and documented in the medical record. The patient was placed in the supine position. Initial ultrasound demonstrated ascites. The right lower abdomen was prepped and draped in standard sterile fashion. 1% lidocaine was infiltrated into the skin and subcutaneous tissues for local anesthesia. Then under continuous sonographic guidance, a 5 Fr catheter was advanced into the peritoneal space. The catheter was connected to vacuum bottle with subsequent evacuation of 3800 cc of serous fluid. The catheter was removed and sterile dressing was applied. Sample was sent to the lab. The patient tolerated the procedure well. IMPRESSION: Successful ultrasound-guided paracentesis. Signed by: Ric Henry on 11/04/2019 2:19 PM
== END ==
LOC: US 12:51
PROVIDERS: ATTEND Internal Medicine Gastroenterology
DX: R18.8 Other ascites (principal); K74.60 Unspecified cirrhosis of liver
CPT/HCPCS: 49083; C1729

== ENCOUNTER → 2019-11-11 | Outpatient (CLI) | payer MEDICARE ==
[2019-11-11 10:58] LABS: HEMATOCRIT 35.5 % (38.2-49.6); HEMOGLOBIN 11.2 g/dL (14.0-18.0)
[2019-11-11 11:12] LABS: INR 1.05; PROTHROMBIN TIME 14.3 seconds (11.9-14.5)
--- NOTE | 2019-11-11 14:00 | Diagnostic Imaging Report ---
PROCEDURE: Ultrasound-guided diagnostic and therapeutic paracentesis Procedural Personnel Attending physician(s): Al Reyes MD Pre-procedure diagnosis: Ascites, cirrhosis Post-procedure diagnosis: Same Indication: Ascites with pain or pressure symptoms Additional clinical history: None Complications: No immediate complications. IMPRESSION: Ultrasound-guided paracentesis with drainage of 3500 mL of serous fluid. Plan: Resume care by clinical team. PROCEDURE SUMMARY: - Limited abdominal ultrasound - Ultrasound-guided paracentesis - Additional procedure(s): None PROCEDURE DETAILS: Pre-procedure Consent: Informed consent for the procedure including risks, benefits and alternatives was obtained and time-out was performed prior to the procedure. Preparation: The site was prepared and draped using maximal sterile barrier technique including cutaneous antisepsis. Anesthesia/sedation Level of anesthesia/sedation: No sedation Anesthesia/sedation administered by: Not applicable Initial abdominal ultrasound Initial abdominal ultrasound was performed. Findings: Large ascites. A safe window for paracentesis was identified. Paracentesis Local anesthesia was administered. The peritoneal cavity was accessed and fluid return confirmed position. Ascites was drained. The catheter was then removed, and a sterile bandage was applied. Paracentesis access technique: Real-time ultrasound guidance Catheter placed: 5F Yueh Post-drainage ultrasound: Moderate ascites Additional Details Additional description of procedure: None Equipment details: None Specimens removed: Abdominal fluid Estimated blood loss (mL): Less than 10 Standardized report: [email or web address] Attestation Signer name: Al Reyes MD I attest that I was present for the entire procedure. I reviewed the stored images and agree with the report as written. Signed by: Al Reyes MD on 11/11/2019 1:57 PM
== END ==
LOC: US 10:38
PROVIDERS: ATTEND Internal Medicine Gastroenterology
DX: R18.8 Other ascites (principal); K74.60 Unspecified cirrhosis of liver
CPT/HCPCS: 36415; 49083; 85014; 85018; 85049; 85610

== ENCOUNTER → 2019-11-14 | Outpatient (CLI) | payer MEDICARE ==
--- NOTE | 2019-11-14 13:27 | Diagnostic Imaging Report ---
PROCEDURE: Ultrasound-guided diagnostic and therapeutic paracentesis Procedural Personnel Attending physician(s): Al Reyes MD Pre-procedure diagnosis: Ascites, cirrhosis Post-procedure diagnosis: Same Indication: Ascites with pain or pressure symptoms Additional clinical history: None Complications: No immediate complications. IMPRESSION: Ultrasound-guided paracentesis with drainage of 2850 mL of serous fluid. Plan: Resume care by clinical team. PROCEDURE SUMMARY: - Limited abdominal ultrasound - Ultrasound-guided paracentesis - Additional procedure(s): None PROCEDURE DETAILS: Pre-procedure Consent: Informed consent for the procedure including risks, benefits and alternatives was obtained and time-out was performed prior to the procedure. Preparation: The site was prepared and draped using maximal sterile barrier technique including cutaneous antisepsis. Anesthesia/sedation Level of anesthesia/sedation: No sedation Anesthesia/sedation administered by: Not applicable Initial abdominal ultrasound Initial abdominal ultrasound was performed. Findings: Large ascites. A safe window for paracentesis was identified. Paracentesis Local anesthesia was administered. The peritoneal cavity was accessed and fluid return confirmed position. Ascites was drained. The catheter was then removed, and a sterile bandage was applied. Paracentesis access technique: Real-time ultrasound guidance Catheter placed: 5F Yueh Post-drainage ultrasound: Moderate ascites Additional Details Additional description of procedure: None Equipment details: None Specimens removed: Abdominal fluid Estimated blood loss (mL): Less than 10 Standardized report: [email or web address] Attestation Signer name: Al Reyes MD I attest that I was present for the entire procedure. I reviewed the stored images and agree with the report as written. Signed by: Al Reyes MD on 11/14/2019 1:24 PM
== END ==
LOC: US 10:34
PROVIDERS: ATTEND Internal Medicine Gastroenterology
DX: R18.8 Other ascites (principal); K74.60 Unspecified cirrhosis of liver
CPT/HCPCS: 49083

== ENCOUNTER → 2019-11-18 | Outpatient (CLI) | payer MEDICARE ==
--- NOTE | 2019-11-18 12:21 | Diagnostic Imaging Report ---
PROCEDURE: Ultrasound-guided diagnostic and therapeutic paracentesis Procedural Personnel Attending physician(s): Al Reyes MD Pre-procedure diagnosis: Ascites, cirrhosis Post-procedure diagnosis: Same Indication: Ascites with pain or pressure symptoms Additional clinical history: None Complications: No immediate complications. IMPRESSION: Ultrasound-guided paracentesis with drainage of 2850 mL of serous fluid. Plan: Resume care by clinical team. PROCEDURE SUMMARY: - Limited abdominal ultrasound - Ultrasound-guided paracentesis - Additional procedure(s): None PROCEDURE DETAILS: Pre-procedure Consent: Informed consent for the procedure including risks, benefits and alternatives was obtained and time-out was performed prior to the procedure. Preparation: The site was prepared and draped using maximal sterile barrier technique including cutaneous antisepsis. Anesthesia/sedation Level of anesthesia/sedation: No sedation Anesthesia/sedation administered by: Not applicable Initial abdominal ultrasound Initial abdominal ultrasound was performed. Findings: Large ascites. A safe window for paracentesis was identified. Paracentesis Local anesthesia was administered. The peritoneal cavity was accessed and fluid return confirmed position. Ascites was drained. The catheter was then removed, and a sterile bandage was applied. Paracentesis access technique: Real-time ultrasound guidance Catheter placed: 5F Yueh Post-drainage ultrasound: Moderate ascites Additional Details Additional description of procedure: None Equipment details: None Specimens removed: Abdominal fluid Estimated blood loss (mL): Less than 10 Standardized report: [email or web address] Attestation Signer name: Al Reyes MD I attest that I was present for the entire procedure. I reviewed the stored images and agree with the report as written. Signed by: Al Reyes MD on 11/18/2019 12:18 PM
== END ==
LOC: US 10:36
PROVIDERS: ATTEND Internal Medicine Gastroenterology
DX: K74.60 Unspecified cirrhosis of liver (principal); R18.8 Other ascites
CPT/HCPCS: 49083

== ENCOUNTER → 2019-11-21 | Outpatient (CLI) | payer MEDICARE ==
--- NOTE | 2019-11-21 11:34 | Diagnostic Imaging Report ---
PROCEDURE: Ultrasound-guided diagnostic and therapeutic paracentesis Procedural Personnel Attending physician(s): Al Reyes MD Pre-procedure diagnosis: Ascites, cirrhosis Post-procedure diagnosis: Same Indication: Ascites with pain or pressure symptoms Additional clinical history: None Complications: No immediate complications. IMPRESSION: Ultrasound-guided paracentesis with drainage of 3150 mL of serous fluid. Plan: Resume care by clinical team. PROCEDURE SUMMARY: - Limited abdominal ultrasound - Ultrasound-guided paracentesis - Additional procedure(s): None PROCEDURE DETAILS: Pre-procedure Consent: Informed consent for the procedure including risks, benefits and alternatives was obtained and time-out was performed prior to the procedure. Preparation: The site was prepared and draped using maximal sterile barrier technique including cutaneous antisepsis. Anesthesia/sedation Level of anesthesia/sedation: No sedation Anesthesia/sedation administered by: Not applicable Initial abdominal ultrasound Initial abdominal ultrasound was performed. Findings: Large ascites. A safe window for paracentesis was identified. Paracentesis Local anesthesia was administered. The peritoneal cavity was accessed and fluid return confirmed position. Ascites was drained. The catheter was then removed, and a sterile bandage was applied. Paracentesis access technique: Real-time ultrasound guidance Catheter placed: 5F Yueh Post-drainage ultrasound: Moderate ascites Additional Details Additional description of procedure: None Equipment details: None Specimens removed: Abdominal fluid Estimated blood loss (mL): Less than 10 Standardized report: [email or web address] Attestation Signer name: Al Reyes MD I attest that I was present for the entire procedure. I reviewed the stored images and agree with the report as written. Signed by: Al Reyes MD on 11/21/2019 11:31 AM
== END ==
LOC: US 10:36
PROVIDERS: ATTEND Internal Medicine Gastroenterology
DX: R18.8 Other ascites (principal); K74.60 Unspecified cirrhosis of liver
CPT/HCPCS: 49083

== ENCOUNTER → 2019-11-24 | Outpatient (CLI) | payer MEDICARE ==
--- NOTE | 2019-11-24 09:48 | Diagnostic Imaging Report ---
PROCEDURE: Ultrasound-guided diagnostic and therapeutic paracentesis Procedural Personnel Attending physician(s): Al Reyes MD Pre-procedure diagnosis: Ascites, cirrhosis Post-procedure diagnosis: Same Indication: Ascites with pain or pressure symptoms Additional clinical history: None Complications: No immediate complications. IMPRESSION: Ultrasound-guided paracentesis with drainage of 2700 mL of serous fluid. Plan: Resume care by clinical team. PROCEDURE SUMMARY: - Limited abdominal ultrasound - Ultrasound-guided paracentesis - Additional procedure(s): None PROCEDURE DETAILS: Pre-procedure Consent: Informed consent for the procedure including risks, benefits and alternatives was obtained and time-out was performed prior to the procedure. Preparation: The site was prepared and draped using maximal sterile barrier technique including cutaneous antisepsis. Anesthesia/sedation Level of anesthesia/sedation: No sedation Anesthesia/sedation administered by: Not applicable Initial abdominal ultrasound Initial abdominal ultrasound was performed. Findings: Moderate ascites. A safe window for paracentesis was identified. Paracentesis Local anesthesia was administered. The peritoneal cavity was accessed and fluid return confirmed position. Ascites was drained. The catheter was then removed, and a sterile bandage was applied. Paracentesis access technique: Real-time ultrasound guidance Catheter placed: 5F Yueh Post-drainage ultrasound: Moderate ascites Additional Details Additional description of procedure: None Equipment details: None Specimens removed: Abdominal fluid Estimated blood loss (mL): Less than 10 Standardized report: [email or web address] Attestation Signer name: Al Reyes MD I attest that I was present for the entire procedure. I reviewed the stored images and agree with the report as written. Signed by: Al Reyes MD on 11/24/2019 9:45 AM
== END ==
LOC: US 07:30
PROVIDERS: ATTEND Internal Medicine Gastroenterology
DX: R18.8 Other ascites (principal); K74.60 Unspecified cirrhosis of liver
CPT/HCPCS: 49083

== ENCOUNTER → 2019-11-27 | Outpatient (CLI) | payer MEDICARE ==
--- NOTE | 2019-11-27 14:19 | Diagnostic Imaging Report ---
PROCEDURE: Ultrasound-guided diagnostic and therapeutic paracentesis Procedural Personnel Attending physician(s): Al Reyes MD Pre-procedure diagnosis: Ascites, cirrhosis Post-procedure diagnosis: Same Indication: Ascites with pain or pressure symptoms Additional clinical history: None Complications: No immediate complications. IMPRESSION: Ultrasound-guided paracentesis with drainage of 2800 mL of serous fluid. Plan: Resume care by clinical team. PROCEDURE SUMMARY: - Limited abdominal ultrasound - Ultrasound-guided paracentesis - Additional procedure(s): None PROCEDURE DETAILS: Pre-procedure Consent: Informed consent for the procedure including risks, benefits and alternatives was obtained and time-out was performed prior to the procedure. Preparation: The site was prepared and draped using maximal sterile barrier technique including cutaneous antisepsis. Anesthesia/sedation Level of anesthesia/sedation: No sedation Anesthesia/sedation administered by: Not applicable Initial abdominal ultrasound Initial abdominal ultrasound was performed. Findings: Moderate ascites. A safe window for paracentesis was identified. Paracentesis Local anesthesia was administered. The peritoneal cavity was accessed and fluid return confirmed position. Ascites was drained. The catheter was then removed, and a sterile bandage was applied. Paracentesis access technique: Real-time ultrasound guidance Catheter placed: 5F Yueh Post-drainage ultrasound: Moderate ascites Additional Details Additional description of procedure: None Equipment details: None Specimens removed: Abdominal fluid Estimated blood loss (mL): Less than 10 Standardized report: [email or web address] Attestation Signer name: Al Reyes MD I attest that I was present for the entire procedure. I reviewed the stored images and agree with the report as written. Signed by: Al Reyes MD on 11/27/2019 2:16 PM
== END ==
LOC: US 12:59
PROVIDERS: ATTEND Internal Medicine Gastroenterology
DX: R18.8 Other ascites (principal); K74.60 Unspecified cirrhosis of liver
CPT/HCPCS: 49083

== ENCOUNTER → 2019-12-01 | Outpatient (CLI) | payer MEDICARE ==
--- NOTE | 2019-12-01 13:13 | Diagnostic Imaging Report ---
PROCEDURE: Ultrasound-guided diagnostic and therapeutic paracentesis Procedural Personnel Attending physician(s): Al Reyes MD Pre-procedure diagnosis: Ascites, cirrhosis Post-procedure diagnosis: Same Indication: Ascites with pain or pressure symptoms Additional clinical history: None Complications: No immediate complications. IMPRESSION: Ultrasound-guided paracentesis with drainage of 3100 mL of serous fluid. Plan: Resume care by clinical team. PROCEDURE SUMMARY: - Limited abdominal ultrasound - Ultrasound-guided paracentesis - Additional procedure(s): None PROCEDURE DETAILS: Pre-procedure Consent: Informed consent for the procedure including risks, benefits and alternatives was obtained and time-out was performed prior to the procedure. Preparation: The site was prepared and draped using maximal sterile barrier technique including cutaneous antisepsis. Anesthesia/sedation Level of anesthesia/sedation: No sedation Anesthesia/sedation administered by: Not applicable Initial abdominal ultrasound Initial abdominal ultrasound was performed. Findings: Moderate ascites. A safe window for paracentesis was identified. Paracentesis Local anesthesia was administered. The peritoneal cavity was accessed and fluid return confirmed position. Ascites was drained. The catheter was then removed, and a sterile bandage was applied. Paracentesis access technique: Real-time ultrasound guidance Catheter placed: 5F Yueh Post-drainage ultrasound: Moderate ascites Additional Details Additional description of procedure: None Equipment details: None Specimens removed: Abdominal fluid Estimated blood loss (mL): Less than 10 Standardized report: [email or web address] Attestation Signer name: Al Reyes MD I attest that I was present for the entire procedure. I reviewed the stored images and agree with the report as written. Signed by: Al Reyes MD on 12/01/2019 1:09 PM
== END ==
LOC: US 10:58
PROVIDERS: ATTEND Internal Medicine Gastroenterology
DX: R18.8 Other ascites (principal); K74.60 Unspecified cirrhosis of liver
CPT/HCPCS: 49083

== ENCOUNTER → 2019-12-04 | Outpatient (CLI) | payer MEDICARE ==
--- NOTE | 2019-12-04 13:28 | Diagnostic Imaging Report ---
US Guided Paracentesis. History: Recurrent ascites. Request for paracentesis. Narcotics And/Or Vice Detective: Zoltan Mcallister MD. Meal Miller: None. Modality: Ultrasonography Sedation: None. Anesthesia: Lidocaine local infiltration. Estimated blood loss: < 5 cc. Technique: Informed written consent was obtained. Discussion of risks, benefits, and alternatives were made with the patient. The patient expressed understanding and agreed to proceed. A universal timeout was performed prior to starting the procedure. Maximal sterile precautions were utilized. The procedure room personnel used personal protective equipment. The operators additionally used sterile surgical gloves. A preliminary ultrasonography was performed to assess the target and determine a safe access site. It showed ascites. Pertinent ultrasound images were stored to the PACS for documentation. The access site was selected and sterilely prepped and draped. Local anesthesia was administered. A dermatotomy was performed. A catheter over the needle system was advanced into the peritoneal cavity. Straw colored fluid was aspirated and the plastic catheter advanced into the peritoneum. The catheter was then connected to a fluid recovery system. At the end of the procedure, the catheter was withdrawn and an aseptic dressing applied. The patient tolerated the procedure well. After uneventful recovery recovery, the patient was discharged from the department in stable condition. The total amount of fluid recovered is given below. Complications: None immediate. Specimen: Sent to the lab. Impression: Successful ultrasound-guided paracentesis using a right lower quadrant access with recovery of 2.75 liters of fluid as described above. Thank you for the opportunity to assist in the care of your patient. Signed by: Zoltan Mcallister MD on 12/04/2019 1:24 PM
== END ==
LOC: US 12:17
PROVIDERS: ATTEND Internal Medicine Gastroenterology
DX: R18.8 Other ascites (principal); K74.60 Unspecified cirrhosis of liver
CPT/HCPCS: 49083

== ENCOUNTER → 2019-12-08 | Outpatient (CLI) | payer MEDICARE ==
--- NOTE | 2019-12-08 12:35 | Diagnostic Imaging Report ---
PROCEDURE: Ultrasound-guided diagnostic and therapeutic paracentesis Procedural Personnel Attending physician(s): Al Reyes MD Pre-procedure diagnosis: Ascites, cirrhosis Post-procedure diagnosis: Same Indication: Ascites with pain or pressure symptoms Additional clinical history: None Complications: No immediate complications. IMPRESSION: Ultrasound-guided paracentesis with drainage of 3350 mL of serous fluid. Plan: Resume care by clinical team. PROCEDURE SUMMARY: - Limited abdominal ultrasound - Ultrasound-guided paracentesis - Additional procedure(s): None PROCEDURE DETAILS: Pre-procedure Consent: Informed consent for the procedure including risks, benefits and alternatives was obtained and time-out was performed prior to the procedure. Preparation: The site was prepared and draped using maximal sterile barrier technique including cutaneous antisepsis. Anesthesia/sedation Level of anesthesia/sedation: No sedation Anesthesia/sedation administered by: Not applicable Initial abdominal ultrasound Initial abdominal ultrasound was performed. Findings: Moderate ascites. A safe window for paracentesis was identified. Paracentesis Local anesthesia was administered. The peritoneal cavity was accessed and fluid return confirmed position. Ascites was drained. The catheter was then removed, and a sterile bandage was applied. Paracentesis access technique: Real-time ultrasound guidance Catheter placed: 5F Yueh Post-drainage ultrasound: Moderate ascites Additional Details Additional description of procedure: None Equipment details: None Specimens removed: Abdominal fluid Estimated blood loss (mL): Less than 10 Standardized report: [email or web address] Attestation Signer name: Al Reyes MD I attest that I was present for the entire procedure. I reviewed the stored images and agree with the report as written. Signed by: Al Reyes MD on 12/08/2019 12:32 PM
== END ==
LOC: US 10:50
PROVIDERS: ATTEND Internal Medicine Gastroenterology
DX: R18.8 Other ascites (principal); K74.60 Unspecified cirrhosis of liver
CPT/HCPCS: 49083

== ENCOUNTER → 2019-12-11 | Outpatient (CLI) | payer MEDICARE ==
[2019-12-11 07:19] LABS: HEMOGLOBIN 10.9 g/dL (14.0-18.0)
[2019-12-11 07:48] LABS: PROTHROMBIN TIME 13.8 seconds (11.9-14.5)
[2019-12-11 07:49] LABS: PARTIAL THROMBOPLASTIN TIME 33.6 seconds (23.8-35.5)
--- NOTE | 2019-12-11 09:04 | Diagnostic Imaging Report ---
Procedure: Ultrasound-guided paracentesis telegraph and teletype operator: Garrett Carlos MD Pre-operative diagnosis: Ascites Post-operative diagnosis: Ascites Conscious Sedation: None. The patient's heart rate and pulse oximetry were continuously monitored by the IR nurse. Additional Medications: Lidocaine 1% for local anesthesia Estimated blood loss: Less than 1 cc. Specimen: 3050 cc of clear yellow yellow fluid Implants: None TECHNIQUE/FINDINGS: Informed consent was obtained from the patient and documented in the medical record. The patient was placed in the supine position. Initial ultrasound demonstrated ascites. The right lower abdomen was prepped and draped in standard sterile fashion. 1% lidocaine was infiltrated into the skin and subcutaneous tissues for local anesthesia. Then under continuous sonographic guidance, a 5 Fr catheter was advanced into the peritoneal space. The catheter was connected to vacuum bottle with subsequent evacuation of 3050 cc of serous fluid. The catheter was removed and sterile dressing was applied. Sample was sent to the lab. The patient tolerated the procedure well. IMPRESSION: Successful ultrasound-guided paracentesis. Signed by: Dr. Garrett Carlos MD on 12/11/2019 9:00 AM
== END ==
LOC: US 07:02
PROVIDERS: ATTEND Internal Medicine Gastroenterology
DX: R18.8 Other ascites (principal); K74.60 Unspecified cirrhosis of liver
CPT/HCPCS: 36415; 49083; 85014; 85049; 85610; 85730

== ENCOUNTER → 2019-12-15 | Outpatient (CLI) | payer MEDICARE ==
--- NOTE | 2019-12-15 13:13 | Diagnostic Imaging Report ---
PROCEDURE: Ultrasound-guided diagnostic and therapeutic paracentesis Procedural Personnel Attending physician(s): Al Reyes MD Pre-procedure diagnosis: Ascites, cirrhosis Post-procedure diagnosis: Same Indication: Ascites with pain or pressure symptoms Additional clinical history: None Complications: No immediate complications. IMPRESSION: Ultrasound-guided paracentesis with drainage of 3200 mL of serous fluid. Plan: Resume care by clinical team. PROCEDURE SUMMARY: - Limited abdominal ultrasound - Ultrasound-guided paracentesis - Additional procedure(s): None PROCEDURE DETAILS: Pre-procedure Consent: Informed consent for the procedure including risks, benefits and alternatives was obtained and time-out was performed prior to the procedure. Preparation: The site was prepared and draped using maximal sterile barrier technique including cutaneous antisepsis. Anesthesia/sedation Level of anesthesia/sedation: No sedation Anesthesia/sedation administered by: Not applicable Initial abdominal ultrasound Initial abdominal ultrasound was performed. Findings: Moderate ascites. A safe window for paracentesis was identified. Paracentesis Local anesthesia was administered. The peritoneal cavity was accessed and fluid return confirmed position. Ascites was drained. The catheter was then removed, and a sterile bandage was applied. Paracentesis access technique: Real-time ultrasound guidance Catheter placed: 5F Yueh Post-drainage ultrasound: Moderate ascites Additional Details Additional description of procedure: None Equipment details: None Specimens removed: Abdominal fluid Estimated blood loss (mL): Less than 10 Standardized report: [email or web address] Attestation Signer name: Al Reyes MD I attest that I was present for the entire procedure. I reviewed the stored images and agree with the report as written. Signed by: Al Reyes MD on 12/15/2019 1:10 PM
== END ==
LOC: US 11:12
PROVIDERS: ATTEND Internal Medicine Gastroenterology
DX: R18.8 Other ascites (principal); K74.60 Unspecified cirrhosis of liver
CPT/HCPCS: 49083

== ENCOUNTER → 2019-12-22 | Outpatient (CLI) | payer MEDICARE ==
--- NOTE | 2019-12-22 11:46 | Diagnostic Imaging Report ---
PROCEDURE: Ultrasound-guided diagnostic and therapeutic paracentesis Procedural Personnel Attending physician(s): Al Reyes MD Pre-procedure diagnosis: Ascites, cirrhosis Post-procedure diagnosis: Same Indication: Ascites with pain or pressure symptoms Additional clinical history: None Complications: No immediate complications. IMPRESSION: Ultrasound-guided paracentesis with drainage of 2700 mL of serous fluid. Plan: Resume care by clinical team. PROCEDURE SUMMARY: - Limited abdominal ultrasound - Ultrasound-guided paracentesis - Additional procedure(s): None PROCEDURE DETAILS: Pre-procedure Consent: Informed consent for the procedure including risks, benefits and alternatives was obtained and time-out was performed prior to the procedure. Preparation: The site was prepared and draped using maximal sterile barrier technique including cutaneous antisepsis. Anesthesia/sedation Level of anesthesia/sedation: No sedation Anesthesia/sedation administered by: Not applicable Initial abdominal ultrasound Initial abdominal ultrasound was performed. Findings: Moderate ascites. A safe window for paracentesis was identified. Paracentesis Local anesthesia was administered. The peritoneal cavity was accessed and fluid return confirmed position. Ascites was drained. The catheter was then removed, and a sterile bandage was applied. Paracentesis access technique: Real-time ultrasound guidance Catheter placed: 5F Yueh Post-drainage ultrasound: Moderate ascites Additional Details Additional description of procedure: None Equipment details: None Specimens removed: Abdominal fluid Estimated blood loss (mL): Less than 10 Standardized report: [email or web address] Attestation Signer name: Al Reyes MD I attest that I was present for the entire procedure. I reviewed the stored images and agree with the report as written. Signed by: Al Reyes MD on 12/22/2019 11:43 AM
== END ==
LOC: US 10:26
PROVIDERS: ATTEND Internal Medicine Gastroenterology
DX: R18.8 Other ascites (principal); K74.60 Unspecified cirrhosis of liver
CPT/HCPCS: 49083

== ENCOUNTER → 2019-12-25 | Outpatient (CLI) | payer MEDICARE ==
--- NOTE | 2019-12-25 12:30 | Diagnostic Imaging Report ---
US Guided Paracentesis. History: Recurrent ascites. Request for paracentesis. Radiology Asst: Zoltan Mcallister MD. Sandwich And Drink Cart Operator: None. Modality: Ultrasonography Sedation: None. Anesthesia: Lidocaine local infiltration. Estimated blood loss: < 5 cc. Technique: Informed written consent was obtained. Discussion of risks, benefits, and alternatives were made with the patient. The patient expressed understanding and agreed to proceed. A universal timeout was performed prior to starting the procedure. Maximal sterile precautions were utilized. The procedure room personnel used personal protective equipment. The operators additionally used sterile surgical gloves. A preliminary ultrasonography was performed to assess the target and determine a safe access site. It showed ascites. Pertinent ultrasound images were stored to the PACS for documentation. The access site was selected and sterilely prepped and draped. Local anesthesia was administered. A dermatotomy was performed. A catheter over the needle system was advanced into the peritoneal cavity. Straw colored fluid was aspirated and the plastic catheter advanced into the peritoneum. The catheter was then connected to a fluid recovery system. At the end of the procedure, the catheter was withdrawn and an aseptic dressing applied. The patient tolerated the procedure well. After uneventful recovery recovery, the patient was discharged from the department in stable condition. The total amount of fluid recovered is given below. Complications: None immediate. Specimen: None. Impression: Successful ultrasound-guided paracentesis using a right lower quadrant access with recovery of 3.1 liters of fluid as described above. Thank you for the opportunity to assist in the care of your patient. Signed by: Zoltan Mcallister MD on 12/25/2019 12:26 PM
== END ==
LOC: US 10:44
PROVIDERS: ATTEND Internal Medicine Gastroenterology
DX: R18.8 Other ascites (principal); K74.60 Unspecified cirrhosis of liver
CPT/HCPCS: 49083

== ENCOUNTER → 2019-12-29 | Outpatient (CLI) | payer MEDICARE ==
--- NOTE | 2019-12-29 11:48 | Diagnostic Imaging Report ---
PROCEDURE: Ultrasound-guided diagnostic and therapeutic paracentesis Procedural Personnel Attending physician(s): Al Reyes MD Pre-procedure diagnosis: Ascites, cirrhosis Post-procedure diagnosis: Same Indication: Ascites with pain or pressure symptoms Additional clinical history: None Complications: No immediate complications. IMPRESSION: Ultrasound-guided paracentesis with drainage of 1700 mL of serous fluid. Plan: Resume care by clinical team. PROCEDURE SUMMARY: - Limited abdominal ultrasound - Ultrasound-guided paracentesis - Additional procedure(s): None PROCEDURE DETAILS: Pre-procedure Consent: Informed consent for the procedure including risks, benefits and alternatives was obtained and time-out was performed prior to the procedure. Preparation: The site was prepared and draped using maximal sterile barrier technique including cutaneous antisepsis. Anesthesia/sedation Level of anesthesia/sedation: No sedation Anesthesia/sedation administered by: Not applicable Initial abdominal ultrasound Initial abdominal ultrasound was performed. Findings: Moderate ascites. A safe window for paracentesis was identified. Paracentesis Local anesthesia was administered. The peritoneal cavity was accessed and fluid return confirmed position. Ascites was drained. The catheter was then removed, and a sterile bandage was applied. Paracentesis access technique: Real-time ultrasound guidance Catheter placed: 5F Yueh Post-drainage ultrasound: No visible ascites Additional Details Additional description of procedure: None Equipment details: None Specimens removed: Abdominal fluid Estimated blood loss (mL): Less than 10 Standardized report: [email or web address] Attestation Signer name: Al Reyes MD I attest that I was present for the entire procedure. I reviewed the stored images and agree with the report as written. Signed by: Al Reyes MD on 12/29/2019 11:45 AM
== END ==
LOC: US 10:20
PROVIDERS: ATTEND Internal Medicine Gastroenterology
DX: R18.8 Other ascites (principal); K74.60 Unspecified cirrhosis of liver
CPT/HCPCS: 49083

== ENCOUNTER → 2020-01-01 | Outpatient (CLI) | payer MEDICARE ==
--- NOTE | 2020-01-01 12:53 | Diagnostic Imaging Report ---
Procedure: Ultrasound-guided paracentesis liquefied natural gas operator: Garrett Carlos MD Pre-operative diagnosis: Ascites Post-operative diagnosis: Ascites Conscious Sedation: None. The patient's heart rate and pulse oximetry were continuously monitored by the IR nurse. Additional Medications: Lidocaine 1% for local anesthesia Estimated blood loss: Less than 1 cc. Specimen: 2500 cc of emiliano-colored fluid Implants: None TECHNIQUE/FINDINGS: Informed consent was obtained from the patient and documented in the medical record. The patient was placed in the supine position. Initial ultrasound demonstrated ascites. The right lower abdomen was prepped and draped in standard sterile fashion. 1% lidocaine was infiltrated into the skin and subcutaneous tissues for local anesthesia. Then under continuous sonographic guidance, a 5 Fr catheter was advanced into the peritoneal space. The catheter was connected to vacuum bottle with subsequent evacuation of 2500 cc of serous fluid. The catheter was removed and sterile dressing was applied. Sample was sent to the lab. The patient tolerated the procedure well. IMPRESSION: Successful ultrasound-guided paracentesis. Signed by: Dr. Garrett Carlos MD on 01/01/2020 12:49 PM
== END ==
LOC: US 11:30
PROVIDERS: ATTEND Internal Medicine Gastroenterology
DX: R18.8 Other ascites (principal); K74.60 Unspecified cirrhosis of liver
CPT/HCPCS: 49083

== ENCOUNTER → 2020-01-05 | Outpatient (CLI) | payer MEDICARE ==
--- NOTE | 2020-01-05 11:51 | Diagnostic Imaging Report ---
PROCEDURE: Ultrasound-guided diagnostic and therapeutic paracentesis Procedural Personnel Attending physician(s): Al Reyes MD Pre-procedure diagnosis: Ascites, cirrhosis Post-procedure diagnosis: Same Indication: Ascites with pain or pressure symptoms Additional clinical history: None Complications: No immediate complications. IMPRESSION: Ultrasound-guided paracentesis with drainage of 2600 mL of serous fluid. Plan: Resume care by clinical team. PROCEDURE SUMMARY: - Limited abdominal ultrasound - Ultrasound-guided paracentesis - Additional procedure(s): None PROCEDURE DETAILS: Pre-procedure Consent: Informed consent for the procedure including risks, benefits and alternatives was obtained and time-out was performed prior to the procedure. Preparation: The site was prepared and draped using maximal sterile barrier technique including cutaneous antisepsis. Anesthesia/sedation Level of anesthesia/sedation: No sedation Anesthesia/sedation administered by: Not applicable Initial abdominal ultrasound Initial abdominal ultrasound was performed. Findings: Moderate ascites. A safe window for paracentesis was identified. Paracentesis Local anesthesia was administered. The peritoneal cavity was accessed and fluid return confirmed position. Ascites was drained. The catheter was then removed, and a sterile bandage was applied. Paracentesis access technique: Real-time ultrasound guidance Catheter placed: 5F Yueh Post-drainage ultrasound: No visible ascites Additional Details Additional description of procedure: None Equipment details: None Specimens removed: Abdominal fluid Estimated blood loss (mL): Less than 10 Standardized report: [email or web address] Attestation Signer name: Al Reyes MD I attest that I was present for the entire procedure. I reviewed the stored images and agree with the report as written. Signed by: Al Reyes MD on 01/05/2020 11:47 AM
== END ==
LOC: US 10:18
PROVIDERS: ATTEND Internal Medicine Gastroenterology
DX: R18.8 Other ascites (principal); K74.60 Unspecified cirrhosis of liver
CPT/HCPCS: 49083

== ENCOUNTER → 2020-01-08 | Outpatient (CLI) | payer MEDICARE ==
--- NOTE | 2020-01-08 13:42 | Diagnostic Imaging Report ---
PROCEDURE: Ultrasound-guided diagnostic and therapeutic paracentesis Procedural Personnel Attending physician(s): Al Reyes MD Pre-procedure diagnosis: Ascites, cirrhosis Post-procedure diagnosis: Same Indication: Ascites with pain or pressure symptoms Additional clinical history: None Complications: No immediate complications. IMPRESSION: Ultrasound-guided paracentesis with drainage of 950 mL of serous fluid. Plan: Resume care by clinical team. PROCEDURE SUMMARY: - Limited abdominal ultrasound - Ultrasound-guided paracentesis - Additional procedure(s): None PROCEDURE DETAILS: Pre-procedure Consent: Informed consent for the procedure including risks, benefits and alternatives was obtained and time-out was performed prior to the procedure. Preparation: The site was prepared and draped using maximal sterile barrier technique including cutaneous antisepsis. Anesthesia/sedation Level of anesthesia/sedation: No sedation Anesthesia/sedation administered by: Not applicable Initial abdominal ultrasound Initial abdominal ultrasound was performed. Findings: Small ascites. A safe window for paracentesis was identified. Paracentesis Local anesthesia was administered. The peritoneal cavity was accessed and fluid return confirmed position. Ascites was drained. The catheter was then removed, and a sterile bandage was applied. Paracentesis access technique: Real-time ultrasound guidance Catheter placed: 5F Yueh Post-drainage ultrasound: No visible ascites Additional Details Additional description of procedure: None Equipment details: None Specimens removed: Abdominal fluid Estimated blood loss (mL): Less than 10 Standardized report: [email or web address] Attestation Signer name: Al Reyes MD I attest that I was present for the entire procedure. I reviewed the stored images and agree with the report as written. Signed by: Al Reyes MD on 01/08/2020 1:39 PM
== END ==
LOC: US 11:21
PROVIDERS: ATTEND Internal Medicine Gastroenterology
DX: K74.60 Unspecified cirrhosis of liver (principal); R18.8 Other ascites
CPT/HCPCS: 49083

== ENCOUNTER → 2020-01-12 | Outpatient (CLI) | payer MEDICARE ==
[2020-01-12 10:36] LABS: HEMOGLOBIN 11.8 g/dL (14.0-18.0)
[2020-01-12 10:54] LABS: INR 1.07; PROTHROMBIN TIME 14.5 seconds (11.9-14.5)
[2020-01-12 10:55] LABS: PARTIAL THROMBOPLASTIN TIME 36.8 seconds (23.8-35.5)
--- NOTE | 2020-01-12 12:28 | Diagnostic Imaging Report ---
US Guided Paracentesis. History: Recurrent ascites. Request for paracentesis. Manager Web Application: Zoltan Mcallister MD. Braille Typist: None. Modality: Ultrasonography Sedation: None. Anesthesia: Lidocaine local infiltration. Estimated blood loss: < 5 cc. Technique: Informed written consent was obtained. Discussion of risks, benefits, and alternatives were made with the patient. The patient expressed understanding and agreed to proceed. A universal timeout was performed prior to starting the procedure. Maximal sterile precautions were utilized. The procedure room personnel used personal protective equipment. The operators additionally used sterile surgical gloves. A preliminary ultrasonography was performed to assess the target and determine a safe access site. It showed ascites. Pertinent ultrasound images were stored to the PACS for documentation. The access site was selected and sterilely prepped and draped. Local anesthesia was administered. A dermatotomy was performed. A catheter over the needle system was advanced into the peritoneal cavity. Straw colored fluid was aspirated and the plastic catheter advanced into the peritoneum. The catheter was then connected to a fluid recovery system. At the end of the procedure, the catheter was withdrawn and an aseptic dressing applied. The patient tolerated the procedure well. After uneventful recovery recovery, the patient was discharged from the department in stable condition. The total amount of fluid recovered is given below. Complications: None immediate. Specimen: Sent to the lab. Impression: Successful ultrasound-guided paracentesis using a right lower quadrant access with recovery of 2.1 liters of fluid as described above. Thank you for the opportunity to assist in the care of your patient. Signed by: Zoltan Mcallister MD on 01/12/2020 12:25 PM
== END ==
LOC: US 10:17
PROVIDERS: ATTEND Internal Medicine Gastroenterology
DX: K74.60 Unspecified cirrhosis of liver (principal); R18.8 Other ascites
CPT/HCPCS: 36415; 49083; 85014; 85049; 85610; 85730

== ENCOUNTER → 2020-01-15 | Outpatient (CLI) | payer MEDICARE ==
--- NOTE | 2020-01-15 11:39 | Diagnostic Imaging Report ---
HISTORY : Symptomatic ascites Technique/findings: Informed written consent was obtained. Discussion of risks, benefits, and alternatives were made with the patient. The patient expressed understanding and agreed to proceed. A universal timeout was performed prior to starting the procedure. Initial ultrasound images demonstrate moderate volume of ascites. A pocket of fluid was identified in the right quadrant of the abdomen. This area was marked. The area was prepped and draped in the usual sterile fashion. 1% lidocaine was applied to the skin and deep soft tissues. Ultrasound was used to assess for any vessels in the vicinity and an image was saved to document lack of vessels. A 5 Yi one-step catheter was inserted and removed from the peritoneal space and approximately 2.4 liters of yellow ascitic fluid was aspirated from the abdomen. There were no immediate complications. Sterile dressing was applied. Impression: Successful ultrasound guided paracentesis with aspiration of 2.4 liters of fluid. Signed by: Adan Akhtar MD on 01/15/2020 11:35 AM
== END ==
LOC: US 10:26
PROVIDERS: ATTEND Internal Medicine Gastroenterology
DX: K74.60 Unspecified cirrhosis of liver (principal); R18.8 Other ascites
CPT/HCPCS: 49083

== ENCOUNTER → 2020-01-19 | Outpatient (CLI) | payer MEDICARE ==
--- NOTE | 2020-01-19 12:20 | Diagnostic Imaging Report ---
HISTORY : Symptomatic ascites Technique/findings: Informed written consent was obtained. Discussion of risks, benefits, and alternatives were made with the patient. The patient expressed understanding and agreed to proceed. A universal timeout was performed prior to starting the procedure. Initial ultrasound images demonstrate moderate volume of ascites. A pocket of fluid was identified in the right lower quadrant of the abdomen. This area was marked. The area was prepped and draped in the usual sterile fashion. 1% lidocaine was applied to the skin and deep soft tissues. A 5 Turkish one-step catheter was inserted and removed from the peritoneal space and approximately 2.75 liters of yellow ascitic fluid was aspirated from the abdomen. Specimens were collected for the lab. There were no immediate complications. Impression: Successful ultrasound guided paracentesis with aspiration of 2.75 liters of fluid. Signed by: Adan Akhtar MD on 01/19/2020 12:16 PM
== END ==
LOC: US 10:48
PROVIDERS: ATTEND Internal Medicine Gastroenterology
DX: K72.90 Hepatic failure, unspecified without coma (principal)
CPT/HCPCS: 49083

== ENCOUNTER → 2020-01-26 | Outpatient (CLI) | payer MEDICARE ==
--- NOTE | 2020-01-26 13:05 | Diagnostic Imaging Report ---
HISTORY : Symptomatic ascites. Technique/findings: Informed written consent was obtained. Discussion of risks, benefits, and alternatives were made with the patient. The patient expressed understanding and agreed to proceed. A universal timeout was performed prior to starting the procedure. Initial ultrasound images demonstrate moderate volume of ascites. A pocket of fluid was identified in the right lower quadrant of the abdomen. This area was marked. The area was prepped and draped in the usual sterile fashion. 1% lidocaine was applied to the skin and deep soft tissues. Color ultrasound was used to assess for any vessels within the vicinity of the planned trajectory of the one-step, a image was saved. A 5 [place]ian one-step catheter was inserted and removed from the peritoneal space and approximately 4.1 liters of yellow ascitic fluid was aspirated from the abdomen. Specimens were collected for the lab. There were no immediate complications. Impression: Successful ultrasound guided paracentesis with aspiration of 4.1 liters of fluid. Signed by: Adan Akhtar MD on 01/26/2020 1:02 PM
--- NOTE | 2020-01-27 13:11 | NUR ---
Followed up with pt via telephone call. pt states everything went well and his abdomen feels so much better. states he feels great. pt is scheduled for repeat para on this sunday.
== END ==
LOC: US 10:43
PROVIDERS: ATTEND Internal Medicine Gastroenterology
DX: K72.90 Hepatic failure, unspecified without coma (principal)
CPT/HCPCS: 49083; C1729

== ENCOUNTER → 2020-01-30 | Outpatient (CLI) | payer MEDICARE ==
[~2020-01-30] MED LIST changes: +ALBUMIN 25% 12.5GM 50ML 100 ML IV ONE; -ALBUMIN 25% 12.5GM 50ML 200 ML IV ONE
--- NOTE | 2020-01-30 12:56 | Diagnostic Imaging Report ---
HISTORY : Symptomatic ascites. Technique/findings: Informed written consent was obtained. Discussion of risks, benefits, and alternatives were made with the patient. The patient expressed understanding and agreed to proceed. A universal timeout was performed prior to starting the procedure. Initial ultrasound images demonstrate moderate volume of ascites. A pocket of fluid was identified in the right lower quadrant of the abdomen. This area was marked. The area was prepped and draped in the usual sterile fashion. 1% lidocaine was applied to the skin and deep soft tissues. Color ultrasound was used to assess for any vessels within the vicinity of the planned trajectory of the one-step, a image was saved. A 5 [place] Island[place] one-step catheter was inserted and removed from the peritoneal space and approximately 2.3 liters of yellow ascitic fluid was aspirated from the abdomen. Specimens were collected for the lab. There were no immediate complications. Impression: Successful ultrasound guided paracentesis with aspiration of 2.3 liters of fluid. Signed by: Adan Akhtar MD on 01/30/2020 12:53 PM
== END ==
LOC: US 10:43
PROVIDERS: ATTEND Internal Medicine Gastroenterology
DX: K74.60 Unspecified cirrhosis of liver (principal); K72.90 Hepatic failure, unspecified without coma
CPT/HCPCS: 49083; C1729

== ENCOUNTER → 2020-02-04 | Outpatient (CLI) | payer MEDICARE ==
[~2020-02-04] MED LIST changes: -ALBUMIN 25% 12.5GM 50ML 100 ML IV ONE
--- NOTE | 2020-02-04 13:06 | Diagnostic Imaging Report ---
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 The patient's heart rate and pulse oximetry were continuously monitored by the IR nurse. Additional Medications: Lidocaine 1% for local anesthesia Estimated blood loss: Less than 1 cc. Specimen: 3500 cc of clear yellow fluid Implants: None TECHNIQUE/FINDINGS: Informed consent was obtained from the patient and documented in the medical record. The patient was placed in the supine position. Initial ultrasound demonstrated ascites. The right lower abdomen was prepped and draped in standard sterile fashion. 1% lidocaine was infiltrated into the skin and subcutaneous tissues for local anesthesia. Then under continuous sonographic guidance, a 5 Fr catheter was advanced into the peritoneal space. The catheter was connected to vacuum bottle with subsequent evacuation of 3500 cc of serous fluid. The catheter was removed and sterile dressing was applied. Sample was sent to the lab. The patient tolerated the procedure well. IMPRESSION: Successful ultrasound-guided paracentesis. Signed by: Dr. Garrett Carlos MD on 02/04/2020 1:02 PM
== END ==
LOC: US 10:24
PROVIDERS: ATTEND Internal Medicine Gastroenterology
DX: K72.90 Hepatic failure, unspecified without coma (principal)
CPT/HCPCS: 49083

== ENCOUNTER → 2020-02-09 | Outpatient (CLI) | payer MEDICARE ==
--- NOTE | 2020-02-09 11:36 | Diagnostic Imaging Report ---
HISTORY : Symptomatic ascites. Technique/findings: Informed written consent was obtained. Discussion of risks, benefits, and alternatives were made with the patient. The patient expressed understanding and agreed to proceed. A universal timeout was performed prior to starting the procedure. Initial ultrasound images demonstrate moderate volume of ascites. A pocket of fluid was identified in the right lower quadrant of the abdomen. This area was marked. The area was prepped and draped in the usual sterile fashion. 1% lidocaine was applied to the skin and deep soft tissues. Color ultrasound was used to assess for any vessels within the vicinity of the planned trajectory of the one-step, a image was saved. A 5 [place]aur[place] one-step catheter was inserted and removed from the peritoneal space and approximately 3 liters of clear yellow ascitic fluid was aspirated from the abdomen. Specimens were collected for the lab. There were no immediate complications. Impression: Successful ultrasound guided paracentesis with aspiration of 3 liters of fluid. Signed by: Adan Akhtar MD on 02/09/2020 11:33 AM
== END ==
LOC: US 10:22
PROVIDERS: ATTEND Internal Medicine Gastroenterology
DX: K74.60 Unspecified cirrhosis of liver (principal); R18.8 Other ascites
CPT/HCPCS: 49083

== ENCOUNTER → 2020-02-13 | Outpatient (CLI) | payer MEDICARE ==
--- NOTE | 2020-02-13 11:40 | Diagnostic Imaging Report ---
PROCEDURE: Ultrasound-guided diagnostic and therapeutic paracentesis Procedural Personnel Attending physician(s): Al Reyes MD Pre-procedure diagnosis: Ascites, cirrhosis Post-procedure diagnosis: Same Indication: Ascites with pain or pressure symptoms Additional clinical history: None Complications: No immediate complications. IMPRESSION: Ultrasound-guided paracentesis with drainage of 2850 mL of serous fluid. Plan: Resume care by clinical team. PROCEDURE SUMMARY: - Limited abdominal ultrasound - Ultrasound-guided paracentesis - Additional procedure(s): None PROCEDURE DETAILS: Pre-procedure Consent: Informed consent for the procedure including risks, benefits and alternatives was obtained and time-out was performed prior to the procedure. Preparation: The site was prepared and draped using maximal sterile barrier technique including cutaneous antisepsis. Anesthesia/sedation Level of anesthesia/sedation: No sedation Anesthesia/sedation administered by: Not applicable Initial abdominal ultrasound Initial abdominal ultrasound was performed. Findings: Small ascites. A safe window for paracentesis was identified. Paracentesis Local anesthesia was administered. The peritoneal cavity was accessed and fluid return confirmed position. Ascites was drained. The catheter was then removed, and a sterile bandage was applied. Paracentesis access technique: Real-time ultrasound guidance Catheter placed: 5F Yueh Post-drainage ultrasound: No visible ascites Additional Details Additional description of procedure: None Equipment details: None Specimens removed: Abdominal fluid Estimated blood loss (mL): Less than 10 Standardized report: [email or web address] Attestation Signer name: Al Reyes MD I attest that I was present for the entire procedure. I reviewed the stored images and agree with the report as written. Signed by: Al Reyes MD on 02/13/2020 11:37 AM
== END ==
LOC: US 10:26
PROVIDERS: ATTEND Internal Medicine Gastroenterology
DX: K72.90 Hepatic failure, unspecified without coma (principal)
CPT/HCPCS: 49083

== ENCOUNTER → 2020-03-05 | Outpatient (CLI) | payer MEDICARE ==
[2020-03-05 12:57] LABS: HEMATOCRIT 34.3 % (38.2-49.6)
[2020-03-05 13:14] LABS: INR 1.27; PROTHROMBIN TIME 16.5 seconds (11.9-14.5)
[2020-03-05 13:15] LABS: PARTIAL THROMBOPLASTIN TIME 35.4 seconds (23.8-35.5)
== END ==
LOC: US 12:44
PROVIDERS: ATTEND Internal Medicine Gastroenterology
DX: R18.8 Other ascites (principal); K74.60 Unspecified cirrhosis of liver
CPT/HCPCS: 36415; 49083; 85014; 85018; 85049; 85610; 85730

== ENCOUNTER → 2020-03-25 | Outpatient (CLI) | payer MEDICARE ==
--- NOTE | 2020-03-25 13:53 | Diagnostic Imaging Report ---
Abdominal ultrasound, limited. History: Cirrhosis, evaluate for paracentesis. Comparison: None available. Discussion: Transverse and longitudinal images of the 4 quadrants of the abdomen were obtained demonstrating only a trace amount of free fluid. IMPRESSION: Trace ascites, insufficient for paracentesis. Signed by: Ric Henry on 03/25/2020 1:50 PM
== END ==
LOC: US 12:32
PROVIDERS: ATTEND Internal Medicine Gastroenterology
DX: K74.60 Unspecified cirrhosis of liver (principal); R18.8 Other ascites; M79.89 Other specified soft tissue disorders
CPT/HCPCS: 76705; 93970

== ENCOUNTER → 2020-04-28 | Outpatient (CLI) | payer MEDICARE ==
--- NOTE | 2020-04-28 12:26 | Diagnostic Imaging Report ---
EXAM: Limited abdominal ultrasound INDICATION: Ascites COMPARISON: Abdominal ultrasound 03/25/2020 TECHNIQUE: Cardenas scale images of the 4 quadrants of the abdomen were obtained FINDINGS: No significant ascites. The previous a scheduled paracentesis was not performed. IMPRESSION: Insufficient ascites for paracentesis. Signed by: Al Ryees MD on 04/28/2020 12:22 PM
== END ==
LOC: US 10:08
PROVIDERS: ATTEND Legal Medicine
DX: R18.8 Other ascites (principal)
CPT/HCPCS: 76705

== ENCOUNTER → 2020-11-30 | Day surgery (SDC) | payer MEDICARE ==
[2020-11-25 14:43] LABS: INR 1.1; PROTHROMBIN TIME 14.9 seconds (11.9-14.5)
[2020-11-25 14:52] LABS: ALBUMIN 3.2 g/dL (3.5-5.0); ANION GAP 12.9 mmol/L (8-16); CREATININE, SERUM 1.12 mg/dL (0.72-1.25); POTASSIUM 3.9 mmol/L (3.5-5.1)
[~2020-11-30] MED LIST changes: +ALPRAZOLAM1 MG PO; +FENTANYL CITRATE/PF 100MCG/2 ML INJ ONE; +LACTULOSE20 GM/30 M PO; +MIDAZOLAM HCL 2 MG/2 ML VIAL ONE; +OR PHACO EYE KIT ONE; +PREOP PHACO EYE KIT ONE; +SPIRONOLACTONE25 MG PO; +ULTRAM50 MG PO; +XIFAXAN550 MG PO
[2020-11-30 13:00] VITALS: BP 112/73
== END | disposition home or self-care (01) ==
LOC: OR 10:51
PROVIDERS: ATTEND Ophthalmology
DX: H25.11 Age-related nuclear cataract, right eye (principal); F41.9 Anxiety disorder, unspecified; K74.60 Unspecified cirrhosis of liver; Z01.812 Encounter for preprocedural laboratory examination; Z86.19 Personal history of other infectious and parasitic diseases; Z87.891 Personal history of nicotine dependence
CPT/HCPCS: 36415; 66984; 80053; 85610; 85730; J2250; J3010; V2632

== ENCOUNTER → 2020-12-14 | Day surgery (SDC) | payer MEDICARE ==
[2020-12-14 11:50] VITALS: BP 107/66
== END | disposition home or self-care (01) ==
LOC: OR 09:08
PROVIDERS: ATTEND Ophthalmology
DX: H25.12 Age-related nuclear cataract, left eye (principal); K74.60 Unspecified cirrhosis of liver; Z86.19 Personal history of other infectious and parasitic diseases; Z79.899 Other long term (current) drug therapy
CPT/HCPCS: 66984; J2250; J3010